=== PATIENT | female | born 1995 | race Caucasian/White ===

== ENCOUNTER 2017-04-29 04:49 | Emergency (ER) | payer OTHER, SELFPAY ==
[2017-04-29 04:51] VITALS: BP 138/93; PULSE 111; RESP 20; TEMP 36.5; O2SAT 100; BMI 23.8
--- NOTE | 2017-04-29 05:04 | ED.DCSUM_ITS ---
- ER Visit Summary Date of Service: 04/29/17 Chief Complaint: [] Possible allergic reaction versus anxiety History of Present Illness: The patient is a 21 F complaining of the sensation of her face jaw and mouth feeling like it swollen. She states she does not actually see any swelling. She has had this in the past. Benadryl is helping. She has a history of bipolar on Lamictal. She is unsure if this is secondary to anxiety. No new medications or allergic exposures Physical Examination: Vital signs reviewed General: Well-nourished well-developed Head: Normocephalic atraumatic Eyes: Pupils equal round and reactive to light extraocular movements intact ENT: TMs clear no hemotympanum no trauma Neck: Nontender full range of motion Cardiovascular: Regular rate rhythm no murmurs normal S1-S2 Respiratory: No distress clear to auscultation bilaterally chest nontender Abdomen: Soft nontender nondistended normal bowel sounds no masses Back: Nontender no CVA tenderness Extremities: Nontender active range of motion ?4 extremities no trauma Skin: Normal color no trauma Neuro alert oriented cranial nerves II through XII intact normal strength sensation reflexes Test Results: [] Emergency Department Course and Treatment: She is reassured. She appears well. I think this is likely anxiety related. I do not think it is allergic related. She will use Benadryl every 4 hours over the next 48 hours. I do not feel she needs an anxiolytic. Treatment Plan: [] Disposition: [] Impression: Anxiety reaction This note was generated with [employer] dictation software. It may contain incorrect words, spelling, and punctuation that were not noted in review of the chart prior to signing ED Disposition - Plan for ED Patient: Chief Complaint: Allergic Reaction Referrals: NOT,DEFINED [Primary Care Provider] -
--- NOTE | 2017-04-29 05:04 | ED.DEP ---
ED Disposition - Plan for ED Patient: Disposition: Home or Assisted Living Chief Complaint: Allergic Reaction Instructions: ED Allergic Reaction General Other Referrals: NOT,DEFINED [Primary Care Provider] - Doctor,Your [STAFF PHYSICIAN] -
[2017-04-29 05:18] VITALS: BP 138/93; PULSE 96; RESP 18; O2SAT 100
== END 2017-04-29 05:18 | disposition home or self-care (01) ==
PROVIDERS: Emergency Provider Emergency Medicine
DX: F41.1 Generalized anxiety disorder (principal); F31.9 Bipolar disorder, unspecified; Z79.899 Other long term (current) drug therapy
CPT/HCPCS: 99282

== ENCOUNTER 2018-08-22 14:46 | Outpatient (RCR) | payer OTHER, SELFPAY ==
--- NOTE | 2018-08-22 10:15 | BH.SGPN.GN ---
Behaviors/Verbalizations/Mental Status: []Client alert and oriented, neatly dressed and groomed. Eye contact fair. Motor activity appropriate. Speech within normal limits. Affect flat, mood anxious. Thoughts linear, logical, no signs of hallucinations or delusions. Client Response/Progress/Benefit: []Client responded well to session, engaged and attentive. Client appeared to connect with the topic of personal pitfalls and how they can prevent mental health progress. Client identified examples of pitfalls such as lack of resources and isolation from supports. Client agreed with peers that pitfalls can occur due to habit and lack of awareness. Client reported to get on the ?right path? and overcome pitfalls, one needs self-awareness. Client participated in the group activity and appeared able to manage her emotions to help the group succeed. Client agreed with peers that awareness, staying calm, and communication helped the group succeed. Client appeared to benefit from increasing self-awareness. Client?s first day in IOP. Client to continue IOP to prevent decompensation and increase mood stability.
--- NOTE | 2018-08-22 11:15 | BH.SGPN.GN ---
Behaviors/Verbalizations/Mental Status: [] Pt eye contact good, neatly dressed, motor activity appropriate, speech normal rate and tone, mood anxious, congruent affect, thoughts linear and intact, no evidence of delusions or hallucinations. Client Response/Progress/Benefit: []Pt was engaged throughout session AEB pt providing input during discussion and attentive to peers. Pt completed a worksheet where she identified own personal pitfalls. Pt identified top 5 personal pitfalls to include: not sleeping, dissociating, not being present, putting others before herself, and poor communication. Group worked together to identify strategies to overcome personal and general pitfalls which included: setting realistic expectations, positive self-talk, utilizing support system, identifying coping skills that are effective and not effective, reframing, and challenging negative thoughts. Pt identified she will work on grounding to increase being more present on a daily basis and decrease dissociation. Benefited from identifying personal and general pitfalls and strategies to overcome these pitfalls. Pt's first day in IOP, continued treatment recommended to increase healthy coping and prevent decompensation. Narrative Note: []
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
== END 2018-08-23 09:00 | disposition home or self-care (01) ==
LOC: BHIOP 14:46
PROVIDERS: Referring Provider Psychiatry & Neurology Psychiatry; Visit Provider Psychiatry & Neurology Psychiatry
DX: F31.9 Bipolar disorder, unspecified (principal)
CPT/HCPCS: H0035; 90853

== ENCOUNTER 2020-01-01 09:00 | Outpatient (RCR) | payer BC, OTHER, SELFPAY ==
--- NOTE | 2020-01-01 09:00 | BH.SGPN.GN ---
Behaviors/Verbalizations/Mental Status: []Client alert and oriented, casually dressed, hair unkempt. Eye contact good. Motor activity appropriate. Pressured speech. Affect flat, mood anxious. Thoughts linear, logical, no signs of hallucinations or delusions. Reviewed client?s symptom tracker, no risk or plan for suicide ideation as of 01/01/20. Client Response/Progress/Benefit: []Client responded well to group, engaged and attentive throughout discussion. Client shared feeling nervous from today being her first day of IOP. Client hopes to learn healthy coping skills to manage intrusive thoughts and hallucinations. Client benefited from group as she gained insight of group expectations and established relationships with other group members. Client will continue IOP to increase the use of healthy coping skills, improve mood stability, and improve daily functioning. Narrative Note: []
--- NOTE | 2020-01-01 10:10 | BH.SGPN.GN ---
Behaviors/Verbalizations/Mental Status: []Client alert and oriented, neatly dressed, hair appeared unkempt. Eye contact good. Motor activity appropriate. Speech within normal limits. Affect constricted, mood anxious and depressed. Thoughts linear, logical, no signs of hallucinations or delusions. Client Response/Progress/Benefit: []Client was an engaged participant AEB client providing input throughout discussion and appeared to listen attentively to others. Client connected with the topic of obstacles and solutions and worked with group to identify common obstacles that keep people stuck. Client shared current reality as feeling disconnected from ?everything? even though client has positive supports in her life. Client's realistic, desired reality is to feel connected to her spouse, siblings, and pets again. Group discussed common barriers that keep people stuck to include lack of energy, no coping skills, and feeling defeated. Benefited from group as client was able to identify current and desired mental health state and increase awareness of how barriers can impact progress. Client to continue IOP tx to prevent decompensation, increase self-care, and reduce negative thinking. Narrative Note: []
--- NOTE | 2020-01-01 11:15 | BH.SGPN.GN ---
Behaviors/Verbalizations/Mental Status: []Client alert and oriented, casually dressed and appropriately groomed. Eye contact fair. Motor activity appropriate. Speech within normal limits. Affect constricted, mood depressed and anxious. Thoughts linear, logical, no signs of hallucinations or delusions. Client Response/Progress/Benefit: []Client was an engaged participant AEB client providing input at times during discussion and appeared to listen attentively to others. Engaged during activity and provided ideas on how to cope with internal barriers that keep clients stuck from moving towards goals. Barriers identified by client were: feeling disconnected from self, disconnected from others, inability to break out of intrusive thoughts, and difficulty determining if she is experiencing hallucinations. Group helped identify strategies to combat barriers identified by group members. Client reported will work on improving connecting with others by making herself socialize with others and reaching out to supports. Seemed to benefit from group by identifying obstacles and solutions to desired reality. First day in IOP. Will continue IOP tx to increase healthy coping skills, improve daily functioning and prevent decompensation. Narrative Note: []
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
--- NOTE | 2020-01-01 14:45 | BH.MTP ---
Master Treatment Plan - Patient Information Program Physician:: Dr. Mcmahan Primary Therapist:: Emily Ibrahim, [facility] - Psychiatric Diagnoses Psychiatric Diagnoses:: Bipolar 1 disorder, most recent episode depression, severe with psychotic features; OCD (obsessions only); PTSD; cannot rule out schizoaffective disorder, bipolar type Diagnosis Code(s):: F31.5 - Estimated LOS Estimated LOS (in weeks):: 6 Problem/Goal #1 - Problem/Goal #1 Stated Goal:: Client will reduce depressive symptoms, feelings of hopelessness, and anhedonia due to Bipolar Disorder through Intensive Outpatient Program. Description of Barriers: Pt's distorted thoughts, low self-esteem, intrusive thoughts, avoidance behaviors, and difficulty regulating emotions could all be barriers to treatment. Functional Impact: Pt self-referred due to worsening intrusive thoughts and increased depressive symptoms with thoughts of not wanting to wake up. Pt's mental health symptoms impacted pt's ability to perform work duties which resulted in pt quitting job. Pt states intrusive thoughts that cause gulit, depression, fear and feeling of being crazy. Pt endorses depressed mood with low energy, poor appetite, decreased motivation, hopelessness and anhedonia. Mental health symptoms impacting occupational and social functioning. - Objectives Objective #1 Stated Objective: Client will learn and utilize 2-3 healthy coping strategies to manage depressive symptoms. Interventions: Therapist will utilize CBT techniques to assist client with understanding the connection between thoughts, feelings and behaviors. Education will be provided on behavioral activation. Therapist will assist client in learning internal coping strategies to manage depressive symptoms, along with helping client identify triggers. Discharge Criteria: Client will have achieved this goal when can verbalize and practiced at least 2 healthy coping strategies that successfully manage depressive symptoms. Target Date: 02/12/20 Review Date: 01/29/20 Objective #2 Stated Objective: Pt will decrease depressive symptoms AEB pt?s score on the DSM 5 cross-cutting measure and improve pt?s daily functioning. Interventions: Through groups and individual therapy, pt will be provided with education on cognitive distortions, mistaken beliefs, and identifying and combating negative self-talk. Therapist will assist pt with getting back into the activities once enjoyed as well as increasing healthy coping strategies. Discharge Criteria: Pt will have met this goal when pt?s score on the DSM 5 cross cutting measure for depression has been decreased and per pt?s report daily functioning has improved. Target Date: 02/12/20 Review Date: 01/29/20 Problem/Goal #2 - Problem/Goal #2 Stated Goal:: Stabilize anxiety level while increasing ability to function on daily basis. Description of Barriers: Pt's distorted thoughts, low self-esteem, intrusive thoughts, avoidance behaviors, and difficulty regulating emotions could all be barriers to treatment. Functional Impact: Pt self-referred due to worsening intrusive thoughts and increased depressive symptoms with thoughts of not wanting to wake up. Pt's mental health symptoms impacted pt's ability to perform work duties which resulted in pt quitting job. Pt states intrusive thoughts that cause gulit, depression, fear and feeling of being crazy. Pt endorses depressed mood with low energy, poor appetite, decreased motivation, hopelessness and anhedonia. Mental health symptoms impacting occupational and social functioning. - Objectives Objective #1 Stated Objective: Client will identify 2-3 intrusive/ruminating thoughts and learn 2-3 strategies to overcome, replace, or reduce the value of those thoughts. Interventions: Therapist will help client increase awareness of cognitive distortions, false comfort, and myths about intrusive thoughts. Therapist will encourage client to focus on stressors in her control and teach client distress tolerance techniques. Therapist will utilize distractions, mindfulness, and CBT-based strategies to help client learn how to more effectively manage and cope with her intrusive thoughts. Therapist will use a workbook to give client homework and exercises to practice. Discharge Criteria: Client will have met this goal when can report least 2 ways to cope with intrusive thoughts that exacerbate anxiety. Target Date: 02/12/20 Review Date: 01/29/20 Objective #2 Stated Objective: Pt will decrease anxious symptoms AEB pt?s score on the DSM 5 cross-cutting measure improve pt?s daily functioning. Interventions: Through groups and individual therapy, pt will be provided education about anxiety?s impact on body and common physiological reaction to anxiety. Therapist will teach pt appropriate breathing techniques and build healthy coping skills to manage daily anxieties. Discharge Criteria: Pt will have met this goal when pt?s score on the DSM 5 cross cutting measure for anxiety has been decreased and per pt?s report daily functioning has improved. Target Date: 02/12/20 Review Date: 01/29/20
--- NOTE | 2020-01-01 20:44 | BH.MDN ---
Multi-Disciplinary Note - Note 30-min Individual Time Started:: 12:20 Date: 01/01/20 Purpose of session/treatment goals addressed:: Purpose of session was to elicit pt's thoughts about first day in IOP. Also started discussion about patient's treatment goals. Eye Contact:: Fair Motor Activity:: Appropriate Appearance:: Casual Speech:: Appropriate Mood:: Anxious, Depressed Affect:: Constricted Thoughts:: Linear, Logical, No evidence of hallucinations/delusions noted Staff Interventions:: Therapist provided support and worked on building rapport by using active listening and validating emotions. Therapist elicited pt's current symptoms and stressors. Elicited pt's goals for treatment. Provided homework to read about different types of intrusive thoughts. Client Response:: Pt stated she overall enjoyed group today. Pt stated she thinks she will need to be a more passive participant during her first couple weeks of treatment until she feels like she knows healthy coping skills. Pt stated she is currently struggling with feeling disconnected with others, depressed mood, auditory and visual hallucinations at times, and intrusive thoughts. Pt reported her current coping skills are sleeping, avoidance and isolation. Pt stated one of her goals is to learn healthy coping skills to manage her symptoms and stressors. Pt reported she struggles with being able to recognize when her auditory hallucinations are not reality. Pt shared she would also like to work on learning how to manage and decrease intrusive thought patterns. Pt stated she is having recurring intrusive thought that her neice and nephew are being hurt. Pt reported last week those thoughts consumed her life. Pt stated this week she has been able to think about other things but the intrusive thought is there. Pt reported she is open to homework and setting small goals. Pt stated she is having a hard time with concentration but will do her best to complete homework of reading provided material about intrusive thoughts. Risks/Concerns:: Pt denies current suicidal ideation, plan or intention to date. Pt future focused. Progress Toward Goals/Plan:: No progress noted due to this being pt's first day in IOP. Session focused on builidng rapport and starting to discuss pt's treatment goals for IOP. Pt to continue IOP to increae healthy coping, improve daily functioning and prevent decompensation. Time Stopped:: 12:50
--- NOTE | 2020-01-03 09:05 | BH.NA ---
Physical Data - Vital Signs Pulse Rate: 83 Blood Pressure: 135/76 - Height/Weight Height: 1.63 m Weight:: 68.039 kg - stated Weight in Pounds: 150.0 lbs Current Medication Compliance - Medication Compliance Do you take your medication as prescribed?: Yes Nutritional History - Appetite Nutritional Instructions:: If client shows signs of a swallowing problem, weight change of 10 pounds or more in the last month, or is on a diabetic diet, the physician will review and request a dietitian consult, as appropriate. All unintentional weight loss will be referred to the physician for decision on need for dietitian consult. Describe your appetite:: Good Additional nutritional information:: states she has gained 20lbs in the last few months after starting a new medication. Functional Assessment - Sleep Pattern Describe any problems with sleeping: Client states she had been sleeping 12+ hours per day but she has scaled back her sleep to 9-10 hours per day. - Activities Motor Activity:: Functional Sensory/Communication Assess - Communication Problems Do you have difficulty understanding what people are saying?: No What is your primary language?: [place] Citizen Medical Problems/History - Metabolic Conditions Metabolic: Other (See comments) - nodules on thyroid that are being monitored - Pain Assessment Do you have acute or chronic pain?: No - Additional History Additional comments:: has been diagnosed as bipolar in the past Surgical History - Surgical History Have you had any surgeries? If so, list type and date:: No Substance Abuse - Substance Abuse Please describe substance abuse in the last 30 days:: Client denies recent alcohol use. Client states she stopped using tobacco in 2014. Client denies substance abuse. Client states she stopped drinking caffiene about a week ago. Mental Status Summary - Mental Status Significant Findings/Observations on Appearance and Mood:: Client is alert and oriented x 4. Client is casually groomed. Client is wearing a mask due to COVID19 pandemic. Client makes good eye contact. Client's voice is normal volume and rate. Client appears midly depressed and anxious. Client makes logical associations. Client states she has auditory and visual hallucinations at times, stating auditory hallucinations are more common and she last had some a couple of weeks ago. Denies SI. Suicide Assessment - Suicidal Ideation Are you currently or have you been suicidal in the past?: No - SI in past, denies SI at this time Suicidal Intentional Rating Scale (SIRS): Suicidal thoughts (past) Physician Notification: If Active suicidal thoughts/Will not contract for safety is checked, contact physician and document in the Physician Notification section below. Past Psychiatric History - MH Treatment Hx Past Psychiatric Medications:: Risperdal (made too lethargic), gabapentin (made her nauesous), and an antidepressant made her suicidal. Age of first mental health symptoms: Client states she was diagnosed with bipolar in 2016. Client did have a suicide attempt approximately 7 years ago. Describe (age, circumstance, etc) any past hospitalizations: None. Current providers for mental health treatment (counselor, psychiatrist, case packer, etc.): Mikey Joseph for therapy at [facility], Nadine Avelar DIRECT SUPPORT SPECIALIST for psychiatry. Fall Risk Assessment - Age Age: Less than 60 - Mental Status Mental Status: Willing & able to ask for assistance when needed - Physical Status Physical Status: No problems - Impairments Impairments: None - Elimination Elimination: Continent AND independent - Gait or Balance Gait or Balance: Walks independently - Hx of Falls History of falls in the past 6 months: No known history - Medications/Substances Psychotropics:: Antipsychotics, Mood stabilizers Medications/substances used within the past 24 hours or ordered to administer: 1-2 of the medications/substances listed above - Total Score Total Points:: 1 RN Summary of Impressions - Impressions Recommendations: Include psychiatric and medical issues, treatment planning recommendations, and discharge planning needs. Impressions: Psychiatric Issues: bipolar 1 disorder, most recent episode depression/ severe with psychotic features. OCD (obsessions only). PTSD. Cannot rule out schizoaffective disorder. - Level of Care How do the client's current symptoms and functional deficits support need for this level of care?: Client states she came to the program due to increasing intrusive thoughts and hallucinations. Client states she has auditory hallucinations, and at times visual. She states she last had auditory hallucinations a couple of weeks ago, stating they are usually knocks on the door in the middle of the night, talking outside of her house or someone calling her name. Client reports recent feelings of fear, does not like to be left alone, increased sleep, increased hallucinations, decreased concentration, decreased energy and anhedonia. Client denies SI at this time. IOP will promote gains and prevent further decompensation while providing social support and skills training.
[2020-01-03 09:29] VITALS: BP 135/76; PULSE 83
--- NOTE | 2020-01-03 11:20 | BH.SGPN.GN ---
Behaviors/Verbalizations/Mental Status: []Client alert and oriented, casually dressed though grooming appearing disheveled. Eye contact fair to good. Motor activity appropriate. Speech within normal limits, quiet. Affect congruent, mood anxious and depressed. Thoughts linear, logical, no signs of hallucinations or delusions Client Response/Progress/Benefit: [] Client responded well to session, actively listening and taking notes throughout, though provided limited input. Client actively listening as the group discussed the different categories of coping skills which included distraction, emotional release, grounding, self-love, and thought challenging. Appeared to connect with provided examples for each category and wrote down several examples shared by fellow participants. Client participated in creating a coping skills ?menu? for the five categories of coping skills. Client's coping skill menu included: reading, coloring, learning a new hobby, meditating, 5-senses, brushing her teeth, reframing, and challenging labels. Shared wanting to focus on more active application of healthy grounding skills by taking more time to practice meditation. Client progress indicated by ability to connect materials to own life. Appeared to benefit from increasing repertoire of healthy coping skills. Will continue tx to further improve mood stability, reduce depression, and prevent decompensation. Narrative Note: []
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
--- NOTE | 2020-01-03 13:44 | BH.PSY.EVA_ITS ---
Initial Treatment Plan - Patient Information Visit Information: ADMISSION DATE: EXPECTED LOS: 4-6 weeks - Problems/Symptoms Problem #1:: Depression Symptom:: Sadness, anhedonia, guilt, decreased concentration, passive SI and pa ssive thoughts Problem #2:: Anxiety Symptom:: Restlessness, fear, intrusive, ego-dystonic obsessions, flashbacks, nightmares, avoidance
--- NOTE | 2020-01-04 09:00 | BH.SGPN.GN ---
Patient identifies as non-binary and preferred pronouns are they/them. Clinical notes will reflect patient's preferred pronouns. Behaviors/Verbalizations/Mental Status: []Client alert and oriented, casual dress, hygiene tended to. Eye contact fair. Motor activity appropriate. Speech within normal limits. Affect constricted, mood depressed. Thoughts linear, logical, no signs of hallucinations or delusions. Reviewed client?s symptom tracker, pt denies current suicidal thoughts or intention to date. Client Response/Progress/Benefit: []Patient responded well to session as evidenced by they sharing thoughts and feelings and appeared to listen attentively to others. Pt reported they accomplished their goal of connecting with others. Pt stated they went out for coffee with a friend they haven't seen in awhile. Pt stated they spent several hours talking and they did feel more connected than they has in awnyle. Pt reported additional positive is their house will be closing next week. Pt stated current stressor is having to move and organize all their belongings but recognizes breaking tasks into small goals will be more manageable. Progress noted with pt accomplishing goal. Pt is to continue IOP to increase healthy coping, decrease depression and prevent decompensation. Narrative Note: []
--- NOTE | 2020-01-04 10:10 | BH.SGPN.GN ---
Behaviors/Verbalizations/Mental Status: []Client alert and oriented, casually dressed and groomed. Eye contact good. Motor activity appropriate. Speech within normal limits. Affect unable to gather due to wearing mask per COVID-19 protocol, mood anxious. Thoughts linear, logical, no signs of hallucinations or delusions. Client Response/Progress/Benefit: []Client engaged and actively listened to others as client took notes. Client connected with discussion on the difference between ?normal? anxiety and when anxiety becomes problematic. Client gained awareness of personal physical symptoms of anxiety which included: dizziness, neck pain, restlessness, insomnia, nausea, and goosebumps. Client reported their safety behavior as avoiding thoughts or behaviors by scrolling through social media to decrease their anxiety symptoms for temporary relief. Client also identified catastrophizing as their common cognitive distortions when experiencing anxiety. Client benefited from group as client gained insight into physical signs of anxiety, safety behaviors, and common cognitive distortions.s. Client will continue IOP to increase the use of healthy coping skills, challenge distorted thoughts, and improve daily functioning. Narrative Note: []
--- NOTE | 2020-01-04 15:07 | BH.MDN ---
Multi-Disciplinary Note - Note 45-min Individual Time Started:: 11:35 Date: 01/04/20 Purpose of session/treatment goals addressed:: Purpose of session was to assess pt's current symptoms and stressors. Additionly focused on increasing awareness of intrusive thoughts and education about behavioral activation. Eye Contact:: Fair Motor Activity:: Appropriate Appearance:: Casual Speech:: Appropriate Mood:: Anxious, Depressed Affect:: Constricted Thoughts:: Linear, Logical, No evidence of hallucinations/delusions noted Staff Interventions:: Therpapist used open ended questions to elicit pt's current symptoms and stressors. Reviewed homework from last session of reading about intrusive thoughts. Provided education about strategies to help with intrusive thoughts. Provided education about cognitive triangle and behavioral activation. Worked with pt to identify smal goal to work on behavioral activiation. Client Response:: Pt stated she is feeling less hopeless because learning new skills. Pt reported she is continuing to be stressed about moving in less than a week. Pt stated she is excited about the move and needs to remind self that it will be okay. Pt reported she engaged in self-care by taking a shower yesterday. Pt stated she is going to a dentist today and buying toothpaste today. Pt reported continuing to struggle with intrusive thoughts. Pt stated she did read some of the material provided last session about intrusive thoughts. Pt reported she connected with the different varieties of intrusive thoughts. After learning about skills to help her manage intrusive thoughts pt stated she didn't think she was ready to work on sitting with the uncomfortable thoughts. Pt connected with the cognitive triangle and willing to work on behavioral activiation. Pt reported her goal is to dance at least once by next week. Risks/Concerns:: denies current suicidal ideation, plan or intention. future focused. Progress Toward Goals/Plan:: Progress noted with pt engaging in self-care yesterday and reporting increased hope. Pt continues to struggle with intrusive thoughts and depressive symptoms. Pt to cotninue IOP to continue IOP to improve healthy coping, decrease anxiety and prevet decompensation. Time Stopped:: 12:10
== END 2020-01-06 23:59 ==
LOC: BHIOP 09:00
PROVIDERS: PCP Family Medicine; Referring Provider Psychiatry & Neurology Psychiatry; Visit Provider Psychiatry & Neurology Psychiatry
DX: F31.5 Bipolar disorder, current episode depressed, severe, with psychotic features (principal); Z79.899 Other long term (current) drug therapy; Z91.5 Personal history of self-harm; F12.90 Cannabis use, unspecified, uncomplicated; Z62.810 Personal history of physical and sexual abuse in childhood; Z62.811 Personal history of psychological abuse in childhood; F42.9 Obsessive-compulsive disorder, unspecified; F43.10 Post-traumatic stress disorder, unspecified
CPT/HCPCS: H0035; 90832; 90834; 90853

== ENCOUNTER 2020-01-08 09:00 | Outpatient (RCR) | payer BC, SELFPAY ==
[2020-01-07 00:42] VITALS: BP 135/76; PULSE 83
--- NOTE | 2020-01-08 09:02 | BH.SGPN.GN ---
Behaviors/Verbalizations/Mental Status: []Client alert and oriented, casual dress, hygiene tended to. Eye contact fair. Motor activity appropriate. Speech within normal limits. Affect constricted, mood anxious. Thoughts linear, logical, no signs of hallucinations or delusions. Reviewed client?s symptom tracker, pt denies current suicidal thoughts or intention to date. Client Response/Progress/Benefit: [] Patient responded well to session as evidenced by her apparent dose and attentively to others and share thoughts and feelings. Patient reported her goal was to work on listening to guided meditations. Patient stated she listen to several guided meditations before bed which she believes was helpful. Patient identified she had positive moments spending time with her younger brother who visited her this weekend. Patient reported in addition to using guided meditation she also uses distraction and is using up as action by going to a dentist today. Patient reported current stressor is that her closing date has been pushed back and she is on sure of when they will now close on the house. Patient seemed to benefit from this person thoughts and feelings. Patient to continue IOP level of care to increase healthy coping, challenge disorder thought patterns, and prevent decompensation. Narrative Note: []
--- NOTE | 2020-01-08 10:14 | BH.SGPN.GN ---
Behaviors/Verbalizations/Mental Status: []Client alert and orient. Appearance casual and grooming appeared fair, disheveled. Speech an appropriate rate and tone. Eye contact fair to good. Motor activity appropriate. Mood dysthymic and anxious, affect constricted. No evidence of delusion or hallucinations.? Client Response/Progress/Benefit: []Client responded well to session, attentive and contributing to discussion. Providing increased input than in prior sessions. Client engaged as group discussed benefits of healthy communication on mental health. Benefits included: helps us relate to others, feedback on how we?re doing, needs get met, and more able to express ourselves. Group additionally discussed potential barriers to communication including: tone, communicating with behaviors or body language, assumptions, communicating when angry or sad/emotionally overwhelmed, and past experiences. Client discussed that for her anxiety has been a significant barrier as she has struggled with feeling too nervous to say something despite having an opinion or thoughts on the matter. Attentive during psychoeducation on the four communication styles. Client self-reports identifying most with the passive communication style, noting that this has been her primary means of communicating since a young age. Discussed that she has worried about conflict with others which she believes contributes to use of passive communication. Progress noted in increased insight into personal communication styles and barriers, as well as improved engagement in group compared to prior sessions. Client to continue in IOP tx prevent decompensation, improve application of self-care skills, and reduce anxiety. Narrative Note: []
--- NOTE | 2020-01-08 11:17 | BH.SGPN.GN ---
Behaviors/Verbalizations/Mental Status: []Client alert and oriented, casually dressed, hair unkempt. Eye contact good. Motor activity appropriate. Speech within normal limits. Affect constricted, mood dysthymic. Thoughts linear, logical, no signs of hallucinations or delusions. Client Response/Progress/Benefit: []Client responded well to session, listening attentively to others and providing input throughout. Engaged in discussion continuing to review the different communication styles. Attentive during psychoeducation reviewing the assertive communication strategy D.E.A.R M.A.N. Client reports wanting to work on asserting needs more directly when communicating with others. Client stated wanting to work on this because client identified self as passive which reinforces depression. Client seemed to benefit from increasing awareness of healthy strategies to improve communication. Client showing progress AEB increased engagement in group sessions. Will continue IOP tx to prevent decompensation, improve self-care, and improve emotional regulation. Narrative Note: []
--- NOTE | 2020-01-12 09:05 | BH.SGPN.GN ---
Behaviors/Verbalizations/Mental Status: []Client alert and oriented, casual dress, hygiene tended to. Eye contact good. Motor activity appropriate. Speech within normal limits.Affect congruent, mood anxious and euthymic. Thoughts linear, logical, no signs of hallucinations or delusions. Reviewed client?s symptom tracker, pt denies current suicidal thoughts or intention to date. Client Response/Progress/Benefit: []Patient responded well to session AEB actively listening and willing to share thoughts and feelings with group. Patient stated emotion today as ?grateful?. She explained recently getting hired for a new job which she is supposed to begin next week. Discussed looking forward to having a more structured routine and believes the job will also help reduce some of her anxiety related to finances. Pt shared feeling excited but nervous as she and her are also planning to close on a house next week. She identified that although these are both positives, they are also stressors. Did well to identify potential benefits of setting aside time for self-care prior to going into a busy week, however indicated often struggling to follow-through with making time for her own self-care needs. Receptive of supportive feedback and suggestions provided by the group. Patient seem to benefit from support of group environment. Pt continues to report difficulties in managing depressive sx and making time to address own self-care needs. Recommended continued IOP treatment to further promote application of self-care skills, continue to work on depression and anxiety management, as well as prevent decompensation. Narrative Note: []
--- NOTE | 2020-01-12 09:48 | BH.MDN ---
Multi-Disciplinary Note - Note 30-min Individual Time Started:: 12:25 Date: 01/12/20 Purpose of session/treatment goals addressed:: Purpose of session is to assess p's current symptoms and stressors. Other topics included reviewing homework, education on CBT techniques, and setting a weekly goal. Eye Contact:: Fair Motor Activity:: Appropriate Appearance:: Casual Speech:: Appropriate Mood:: Anxious Affect:: Constricted Thoughts:: Linear, Logical, No evidence of hallucinations/delusions noted Staff Interventions:: Therapist elicited pt's current symptoms and stressors. Provided psychoeducation about Time Stopped:: 12:55
--- NOTE | 2020-01-12 10:18 | BH.SGPN.GN ---
Behaviors/Verbalizations/Mental Status: []Client alert and oriented, neatly dressed, unkempt hair. Eye contact good. Motor activity appropriate. Speech within normal limits. Affect constricted, mood dysthymic. Thoughts linear, logical, no signs of hallucinations or delusions. Client Response/Progress/Benefit: []Client active participant as shown by active listening and contributing to discussion. Client contributed to the discussion of self-care and the consequences of not practicing self-care. Client agreed with peers that it is important to practice self-care, but they all struggle with through. Client helped the group discuss consequences of not practicing self-care such as: poor physical health, poor work performance, and poor emotional regulation. Client gave a personal example of how lack of self-care lead to client losing a job. Client participated in the discussion of the common myths about self-care. Client participated in the discussion on debunking of these myths. Client?s group challenged the myths that self-care takes too much time and means a person is ?lazy.? Client seemed to benefit from increased awareness of the importance of self-care and challenging common myths that prevent practicing self-care. Will continue IOP tx to reduce negative thinking that reinforces depression and anxiety as well as to improve daily functioning. Narrative Note: []
--- NOTE | 2020-01-12 11:20 | BH.SGPN.GN ---
Behaviors/Verbalizations/Mental Status: []Client alert and oriented, casually dressed, hygiene fair. Eye contact fair. Motor activity appropriate. Speech within normal limits. Affect constricted, mood dysthymic. Thoughts linear, logical, no signs of hallucinations or delusions. Client Response/Progress/Benefit: []Client passive participant AEB client providing limited input during discussions however appeared to listen attentively to others. Participated in some group discussion on the various areas of self-care, benefits, and types of self-care activities for each area. Client completed worksheet identifying current self-care practices and what self-care activities wants to start using. Client reported will focus on improving spiritual self-care to have a sense of community. Client stated will improve this self-care by researching to find a place of baptism that I'm welcomed to. Progress noted as client has reported improved mood. Will continue IOP tx to further promote the use of self-care practice, continue use of healthy coping skills and prevent decompensation. Narrative Note: []
--- NOTE | 2020-01-17 09:00 | BH.SGPN.GN ---
Behaviors/Verbalizations/Mental Status: []Client alert and oriented, casual dress, hygiene fair, disheveled. Eye contact fair to good. Motor activity appropriate. Speech within normal limits. Affect congruent, mood anxious, depressed. Thoughts linear, logical, no signs of hallucinations or delusions. Reviewed client?s symptom tracker, no signs of suicidal ideation, plan, or intent as of today. Client Response/Progress/Benefit: []Client responded well to session AEB actively listening to others and willingly sharing thoughts and feelings. Client identified emotion today as ?stressed?. Explained that she and her signed on a new house on Wednesday and that she started a new job on Wednesday. Did well to identify that although these are stressors, they are positives in her life as well. Expressed a positive as taking some time this weekend to practice some grounding skills in order to begin the week with less stress. Additional positive noted as using opposite action and positive self-talk to ?do the scary thing? and begin her new job despite wanting to avoid doing so. Expressed plans to take a nap this afternoon to prevent from feeling overwhelmed and burnt-out by all the recent changes. Appeared to benefit from group structure and support. Progress noted in self-report of improved use of grounding skills for better anxiety management; however client continues to appear to struggle with poor self-care and negative thoughts reinforcing mental health sx. Recommended continued IOP tx to maintain gains, continue to work on improving anxiety and depression management, and prevent decompensation. Narrative Note: []
--- NOTE | 2020-01-17 11:05 | BH.SGPN.GN ---
Behaviors/Verbalizations/Mental Status: []Client alert and oriented, neatly dressed and hair unkempt. Eye contact good. Motor activity appropriate. Speech within normal limits. Affect constricted, mood anxious. Thoughts linear, logical, no signs of hallucinations or delusions. Client Response/Progress/Benefit: []Client engaged in session AEB listening attentively to others and providing input during discussion. Client did well to participate during the activity in which participants were challenged to eliminate various items through group consensus. Client shared her ideas rather than being accommodating to peers. Client contributed to discussion of the barriers that occurred during the activity as well as the conflict resolution strategies. Client reviewed the worksheet on ten strategies to cope with conflict and client selected wanting to work on not jumping to conclusions or making assumptions about what another person is thinking or feeling. Client has also been practicing being more assertive during group sessions. Progress noted AEB client trying new coping skills and communication approaches. Will continue IOP tx as client continues to endorse a depressed mood, ruminations, and is not functioning at her baseline. Narrative Note: []
--- NOTE | 2020-01-17 12:23 | PCM.BH.PN_ITS ---
Progress Note Progress Note: History of Present Illness/Interim History: [] Patient is a 24-year-old female who is seen in follow-up at the [facility] behavioral health IOP program. I last saw the patient 2 weeks ago and at that time we had a discussion about her current medication regimen. The patient saw her outpati ent psychiatrist recently and they told the patient that I should manage her medications while she is in the IOP program. The patient wishes to wean off of her first generation antipsychotic (perphenazine) and to start a new second- generation antipsychotic in order to decrease the risk of tardive dyskinesia and other EPS symptoms down the road. She currently is somewhat stressed due to the fact that her and her bought a house about 4 days ago and they are now planning to move. In addition she started a new job yesterday and this is a little bit stressful for her. She says her mood had improved last week and is still okay but a little stress due to the recent above stressors. She denies any suicidal or homicidal ideation. She denies passive thoughts that she would not care if she . She denies any auditory hallucinations. She denies any symptoms of rhianna. Current Psychiatric Medications: [] Perphenazine 12 mg p.o. nightly (she takes 1-1/2 of an 8 mg tablet); Lamictal 200 mg p.o. nightly (increased 1 week ago by her outpatient provider); Trileptal 150 mg p.o. nightly; hydroxyzine 25 mg up to 4 times a day as needed for anxiety. Mental Status Examination: [] Patient is a 24-year-old female who is seen wearing a mask due to the pandemic she is casually dressed and groomed with good hygiene. She has no psychomotor agitation or retardation. Eye contact is good and speech is normal rate and rhythm and fluent with no pressure. Mood is mildly depressed. Affect is constricted to full today. Thought process is goal-directed and organized. Thought content: No evidence of auditory hallucinations or delusions since 1 month ago. She does have occasional intrusive thoughts that are ego dystonic and related to her OCD. Reality testing is intact. Judgment is intact. Insight: Some present. Impulsivity: Low to moderate. Diagnoses: [] [place] I: [] Bipolar 1 disorder, most recent episode depression, severe with psychotic features (F 31.5); OCD; PTSD; cannot rule out schizoaffective disorder, bipolar type [place] II: [] Negative [place] III: [] Negative [place] IV:[]] Primary support, financial,housing and job issues Plan: [] Patient will continue the IOP program at [facility] as the structure, support, education, individual and group therapy will hopefully prevent worsening of the patient's symptoms that might require hospitalization. She felt safe during the interview and if at any time she does not feel safe she will let us know or go to the emergency room. The risks, options, possible complications and side effects of the medications were discussed with the patient and she understands and accepts these. I discussed with the patient that although the perphenazine does give her an increased risk of extraparametal side effects and tardive dyskinesia in the future it might be worthwhile waiting to change meds until she is in a little bit of a less stressful time in her life. However the patient really wants to change her medication now and feels that she will be able to tolerate it. The patient failed Risperdal in the past also. She denies any other psych antipsychotic use other than perphenazine and Risperdal in the past. Patient agrees to start Latuda and she understands it needs to be taken with food or it will not be absorbed. She should take it with dinner or with at least a 350-calorie meal. She understands that we are going to wean the perphenazine slowly over 2-week. And increased Latuda slowly over 2-week.. So the patient will start by decreasing her perphenazine to 1 8 mg tablet at bedtime for 1 week. During the same time. She will start Latuda and take 140 mg tablet in the evening with food. After 1 week or around January 24, 2020 the patient will then decrease her perphenazine to 1/2 tablet or 4 mg at bedtime for 1 week and then stop the perphenazine around January 31. Around January 23 the same day she decreases her perphenazine she will increase her Latuda to 80 mg or 240 mg tablets p.o. in the evening with food. She will stay on the 80 mg of Latuda nightly until I see her next in 1 to 2 weeks.
--- NOTE | 2020-01-18 09:00 | BH.SGPN.GN ---
Behaviors/Verbalizations/Mental Status: []Client alert and oriented, casually dressed. Eye contact good. Motor activity appropriate. Speech within normal limits. Affect constricted, mood anxious. Thoughts linear, logical, no signs of hallucinations or delusions. Reviewed client?s symptom tracker, no risk or plan for suicide ideation as of 01/18/20. Client Response/Progress/Benefit: []Client responded well to session, engaged and participated throughout discussion. Client?s goal was to make it through the week with little anxiety. Client shared they moved into a new house and started a new job this week and has been stressed. Client shared their first day at the new job was stressful and resulted in their employer sending them home early. Client shared they can practice self-care before their next day on the job by seeking reassurance and spending quality time with supports. Client benefited from group as other group members connected and related to client?s experiences. Progress noted as client used breathing and grounding skills as healthy ways to cope with anxiety and stress. Client will continue IOP to increase the use of healthy coping skills, improve mood, and increase self-awareness. Narrative Note: []
--- NOTE | 2020-01-18 10:10 | BH.SGPN.GN ---
Behaviors/Verbalizations/Mental Status: []Client alert and oriented, dishelved. Eye contact good. Motor activity appropriate. Speech within normal limits. Affect flat, mood anxious. Thoughts linear, logical, no signs of hallucinations or delusions. Client Response/Progress/Benefit: []Client receptive of session, attentive in discussion and activity. Client helped group identify barriers that impact one?s ability to communicate when emotions are high. These barriers included; panic attacks, lashing out, decreased communication, increased negative thinking, and decreased listening and focusing skills. Client shared they often use social media to distract themselves from unwanted emotions. Attentive during psychoeducation on steps to improve emotional regulation. Client shared their benefit of using healthy coping skills will help break the maintenance cycle. Client participated in the activity and did well to manage emotions throughout. Client did well to provide encouragement and be the buffer. Client benefited from group as they were able to use healthy coping skills to complete the goal of the group activity and recognize personal benefits of regulating emotions. Client will continue IOP to improve daily functioning and increase the use of healthy coping skills. Narrative Note: []
--- NOTE | 2020-01-18 14:17 | BH.MDN_ITS ---
Multi-Disciplinary Note - Note 60-min Individual Time Started:: 11:35 Date: 01/18/20 Purpose of session/treatment goals addressed:: Purpose of session was to assess pt's current symptoms and stressors. Other topics included: reviewing homework from last session, processing relationship concerns, and setting goals for the week. Eye Contact:: Fair Motor Activity:: Appropriate Appearance:: Casual Speech:: Appropriate Mood:: Euthymic, Anxious Affect:: Congruent Thoughts:: Linear, Logical, No evidence of hallucinations/delusions noted Staff Interventions:: Therapist elicited pt's current symptoms and stressors. Reviewed homework. Used CBT to help client understand personal meaning of issues being confronted. Taught healthy communication techniques to help pt when expressing concerns to . Provided support by using active listening and validation when pt expressed thoughts and feelings about coming out as non- binary. Collaborated with pt to identify two goals for the next week. Client Response:: Pt actively involved in session AEB pt expressing thoughts and feelings as well as accpeting feedback. Pt reported completed her goal of using different techniques to manage anxiety. Pt stated managed anxiety at work by counting her breathe. Pt reported this prevented a panic attack. Pt stated feeling more stable to address intrusive thoughts. Reported has not been having intrusive thought as frequently about their neice. Pt expressed concern about husbands mental health and distance from each other. Pt stated one goal is to ask if he would go on a walk with pt. Pt stated additonal goal is to work on improving grounding skills. Pt reported they will listen to a guided meditation every night before bed. Pt identified struggling with being easily distracted and having a hard time focusing. Risks/Concerns:: denies current suicidal thoughts, plan or intention. Progress Toward Goals/Plan:: Pt showing progress with tx goals AEB pt stating feeling less depressed and more hopeful in the past week. Pt repsonding well to homework assignments. Pt learning and utilizing healthy coping skills. Pt continuing to struggle with identity, needs continued support. Plan is for pt to continue IOP level of care 3 days a week to reinforce healthy coping, teach CBT restructuring skills, and prevent decompensatin. Time Stopped:: 12:45
--- NOTE | 2020-01-22 09:05 | BH.SGPN.GN ---
Behaviors/Verbalizations/Mental Status: [] Client alert and oriented, casual dress, hygiene disheveled. Eye contact fair to good. Motor activity appropriate. Speech within normal limits. Affect congruent, mood euthymic and anxious. Thoughts linear, logical, no signs of hallucinations or delusions. Reviewed client?s symptom tracker, no signs of suicidal ideation, plan, or intent as of today. Client Response/Progress/Benefit: [] Client responded well to session, actively engaged and willing to process with group. Client identified emotion today as ?hopeful?.? Explained that her weekend had been ?good and productive? which has resulted in feeling more positive this morning. Client identified mental health positives from the weekend as challenging herself to use opposite action and continue working on moving boxes into her new home. Additional win noted as reaching out to her employer about feeling uncomfortable on the [employer] and working with them to find an alternative role for her within the company. Expressed this as progress as in the past she might have struggled with wanting to give up or quit. Appeared to benefit from group structure and support, as well as identifying areas of personal progress. Identified current stressor as ongoing confusion related to her gender identity; however, noted continuing to take steps to further process this for herself and reach out to supports. Recommended continued IOP tx to improve application of skills, continue to work on independent anxiety management, and prevent decompensation. Narrative Note: []
--- NOTE | 2020-01-24 09:05 | BH.SGPN.GN ---
Behaviors/Verbalizations/Mental Status: [] Eye contact is good. Motor activity is appropriate. Appearance is casual. Speech is appropriate. Mood is euthymic. Affect is full. Thoughts are linear and logical. No evidence of psychosis. Reviewed daily check in sheet and no reports of suicidal ideations or intent. Client Response/Progress/Benefit: [] Pt was an active participant in group discussion. Emotion for today is positive. Reports recent medications changes which she feels have been beneficial. Fewer hallucinations and more stable mood. Less anxious. More productive. No sleeping the day away. More control of her intrusive thoughts. She reports that with increased stability she has more time which has been hard to fill. Progress noted per pt report. Benefited from group support, encouragement, and feedback. Will continue in IOP to prevent decompensation, stabilize mood and medications, and improve functioning. Narrative Note: []
--- NOTE | 2020-01-24 09:17 | BH.COMM_ITS ---
Communication Note - Communication with Client Communication Note: Met with client to discuss Latuda medication. Client states insurance would not authorize prescription, but pharmacy did use discount card to get her 30 tablets of 40mg dose for $15. Client is ordered to begin taking 80mg per day. Client is tapering perpherazine and states will begin 4mg taper today. Client states she could feel a difference switching to Latuda, but states medication is helping. This nurse will attempt prior authorization for medicat ion Latuda.
--- NOTE | 2020-01-24 10:20 | BH.SGPN.GN ---
Behaviors/Verbalizations/Mental Status: []Client alert and oriented, neatly dressed and groomed-showered. Eye contact good. Motor activity appropriate. Speech within normal limits. Affect congruent, mood euthymic. Thoughts linear, logical, no signs of hallucinations or delusions. Client Response/Progress/Benefit: []Client responded well to session, contributing during discussion and engaged during the activity, Group reported even though change can be scary, change can be positive. Discussed how change can lead to improved mental health and personal safety. Client shared example of how they were going to put off coming to IOP, but then client decided to make the change and start therapy. Worked with the group to identify barriers to making change, which included: fear of failure, uncomfortable emotions, and putting others first. Client participated in the activity where they identified and discussed the emotions related to change. Benefited from increased awareness and understanding of emotions, benefits, and barriers related to change. Progress noted in client?s report of improved mood and increased self-care. Will continue IOP tx as client can benefit from further reducing distortions, increasing confidence, and improving mood stability. Narrative Note: []
--- NOTE | 2020-01-25 10:10 | BH.SGPN.GN ---
Behaviors/Verbalizations/Mental Status: []Client alert and oriented, disheveled, hygiene appeared to be tended to. Eye contact good. Motor activity appropriate. Speech within normal limits. Affect flat, mood anxious. Thoughts linear, logical, no signs of hallucinations or delusions. Client Response/Progress/Benefit: []Client responded well to session, attentive and engaged throughout discussion and activity. Client reported self-doubt as a barrier to take new experiences. Client stated their impact of fearing failure is that failing keeps them from trying something new. Client seemed to connect how failures can lead to positive changes. Client appeared to benefit from gaining awareness of the impact fear of failure can have on one?s mental health and wellbeing. Will continue IOP to improve daily functioning, reduce negative thinking, and increase the use of healthy coping skills. Narrative Note: []
--- NOTE | 2020-01-25 13:38 | BH.MDN ---
Multi-Disciplinary Note - Note 30-min Individual Time Started:: 11:25 Date: 01/25/20 Time Stopped:: 12:05
--- NOTE | 2020-01-29 12:28 | PCM.BH.PN ---
Progress Note Progress Note: History of Present Illness/Interim History: [] The patient is a 24-year-old female who is seen in follow-up at the [facility] behavioral health IOP program. I last saw the patient 2 weeks ago and we began weaning her from perphenazine and changing her over to Latuda. The patient is seen via telehealth today. The patient states that she has been tolerating the weaning of the medications well. She has been taking the 80 mg dose of Latuda at bedtime with food for about 5 days now. Last night was the first time that she vomited about 30 minutes after taking Latuda. Prior to that she had tolerated the Latuda well. She is now taking 4 mg of prevent is eating and will stop this medication in 3 days. She is sleeping about 6 hours total but wakes up during the night. Her initial insomnia has resolved. Her mood is pretty good. She is much less depressed than before and feels she also has more primary support available to her. She was transferred to a new position or department at her new job and so she has not worked in a week because they have not found a position for her in the new department yet. She does not mind this because she is still in the process of moving and she is participating in IOP. She states that if they do not call her with a new job after the long weekend she will try to find another job. She denies any hallucinations whatsoever. She denies suicidal ideation, homicidal ideation, thoughts of . She feels she is benefiting from the IOP program and is enjoying it. Current Psychiatric Medications: [] Perphenazine 4 mg p.o. nightly (will finish 1 week at this dose and discontinue the medication in 3 days).; Lamictal 200 mg p.o. nightly; Trileptal 150 mg p.o. nightly; hydroxyzine 25 mg up to 4 times a day as needed for anxiety; Latuda 80 mg p.o. nightly with food (x12 days now and only 5 days at the 80 mg dose. Mental Status Examination: [] The patient is seen via telehealth and is casually dressed and groomed with good hygiene. She is cooperative during the interview and has no psychomotor agitation or retardation. She has good eye contact and her speech is normal rate and rhythm and fluent with no pressure. Mood is approaching euthymia. Affect is full and normal. Thought process is goal-directed and organized. Thought content: No evidence of auditory hallucinations or delusions. Reality testing is intact. Judgment is intact. Insight: Improving. Impulsivity: Low to moderate. Diagnoses: [] [place] I: [] Bipolar 1 disorder, most recent episode depression, severe with psychotic features (F 31.5); OCD; PTSD; cannot rule out schizoaffective disorder, bipolar type [place] II: [] Negative [place] III: [] Negative [place] IV:[]] Primary support, financial, housing and job issues Plan: [] The patient will continue the IOP program at [facility] as the structure, support, education, individual and group therapy will hopefully prevent worsening of the patient's symptoms which might require hospitalization. The patient felt safe during the interview and if it anytime she does not feel safe she will let us know or go to the emergency room. No medication changes were made today as the patient will continue the weaning of the preventive seen in the taking of 80 mg of Latuda nightly with food. The rest of her medications will stay the same except she will DC her perphenazine in 4 days. The patient is instructed that if she vomits again or it persists to tell the staff and we will have to stop her Latuda. She tolerated the Latuda for the first 4 nights so she feels optimistic that she will be able to tolerate it as she feels better on it. She will continue to follow-up with outpatient providers and I will see the patient in 1 to 2 weeks.
--- NOTE | 2020-01-31 09:02 | BH.SGPN.GN ---
Behaviors/Verbalizations/Mental Status: []Client alert and oriented, casual dress, hygiene poor. Eye contact fair. Motor activity appropriate. Speech within normal limits. Affect constricted, mood anxious. Thoughts linear, logical, no signs of hallucinations or delusions. Reviewed client?s symptom tracker, pt denies current suicidal thoughts or intention to date. Client Response/Progress/Benefit: []Pt responded well to session AEB pt openly sharing thoughts and feelings and appeared to listen attentively to others. Pt reported feeling tense and anxious because stayed at new house by their self for the first night. Pt stated was able to self-soothe by meditating. Pt reported made an appointment at [facility] to start conversation about getting on testosterone hormone therapy. Pt stated they are looking forward to getting medical guidance on becoming more androgenous. Seemed to benefit from support from peers. Pt to continue IOP to increase consistent use of skills, improve daily functioning and prevent decompensation. Narrative Note: []
--- NOTE | 2020-01-31 10:15 | BH.SGPN.GN ---
Behaviors/Verbalizations/Mental Status: []Client alert and oriented, casually dressed and fairly groomed. Eye contact fair to good. Motor activity appropriate. Speech within normal limits. Affect congruent, mood anxious and dysthymic. Thoughts linear, logical, no signs of hallucinations or delusions. Client Response/Progress/Benefit: []Client was an engaged participant AEB taking notes, providing some input, and attentively listening throughout. Connected with group topic of perspective and the impacts of one?s perspective on mental health. Client shared that ?if we expect the bad then we are more focused on looking for what?s bad?. Client worked with the group to identify how a negative perspective can impact mental health which included: self-fulfilling prophecy, maintain unhealthy mental health cycles, and lead to more negative thinking.?Client contributed as group discussed ways a positive perspective can impact mental health such as: be more willing to keep trying when faced with setbacks, be more open to new experiences and new relationships, as well as improve self-confidence. Client shared ?I?m trying to look at things like ?what if something goes right rather than what if it goes wrong?. Client appeared to benefit from increasing understanding of mental health benefits of a positive perspective and potential consequences to progress when perspective is negative. Progress noted in self-report of improved skill application and reduced anxiety. Client will continue IOP tx to prevent decompensation, improve emotional regulation skills, and improve daily functioning. Narrative Note: []
--- NOTE | 2020-01-31 11:17 | BH.SGPN.GN ---
Behaviors/Verbalizations/Mental Status: []Eye contact is good. Motor activity is appropriate. Appearance is casual- hygiene fair. Speech is Appropriate. Mood is euthymic. Affect is congruent. Thoughts are linear and logical. No evidence of psychosis. Client Response/Progress/Benefit: []Client was an active participant in group discussion. Attentive during psychoeducation. Active participant in group discussion on the impact of perspective on how we view ourselves. Client worked with the group to develop a working definition of the term strengths and the importance of recognizing one's strengths. Client was given a worksheet and was asked to chitina at least 3 strengths which included: integrity, social awareness, and empathy. Group then worked together to identify strategies to remind themselves of their strengths and client selected keeping the strengths worksheet from today visible as their strategy. Progress noted AEB client?s self-report of decreased intrusive thoughts. Benefited from increased awareness of the role of perspective and strengths in daily mental health wellness. Will continue IOP tx to promote gains and further decrease intensity of symptoms. Narrative Note: []
--- NOTE | 2020-01-31 15:46 | BH.MDN ---
Multi-Disciplinary Note - Note 45-min Individual Time Started:: 10:35 Date: 01/31/20 Time Stopped:: 11:15
--- NOTE | 2020-01-31 15:48 | BH.TPR ---
Treatment Plan Review Date of Treatment Plan Review:: 01/31/20
--- NOTE | 2020-02-02 09:00 | BH.SGPN.GN ---
Behaviors/Verbalizations/Mental Status: [] Eye contact is good. Motor activity is appropriate. Appearance is neat. Speech is Appropriate. Mood is depressed. Affect is flat. Thoughts are linear and logical. No evidence of psychosis. Reviewed daily check in sheet and no reports of suicidal ideations or intent. Client Response/Progress/Benefit: [] Pt was an active participant in group discussion. Provided appropriate feedback to peers. Pt states my mood is low today. Increased anxiety and poor sleep. Sleep issues are related to moving into a new house not used to all the creaks. Reports that she is transitioning medications and understands that their will be some discomfort as she weens from one medication. Over the holiday she disclosed to her in-laws that she is non-binary. She states that their reaction was not good or bad. States that they appears more confused than anything. Was an impulsive decision to discuss this with them stating it appeared to be a good time. Emotion is stressed. Regression noted per pt report. Benefited from group support and encouragement. Will continue in IOP to stabilize mood and medications, improve functioning, and increase healthy coping skills. Narrative Note: []
--- NOTE | 2020-02-02 10:15 | BH.SGPN.GN ---
Behaviors/Verbalizations/Mental Status: []Client alert and oriented, casually dressed and appropriately groomed. Eye contact good. Motor activity appropriate. Speech within normal limits. Affect congruent, mood dysthymic. Thoughts linear, logical, no signs of hallucinations or delusions. Client Response/Progress/Benefit: []Client appeared engaged during session AEB client providing input throughout, taking notes, and listening attentively to others. Client worked with peers on defining goals and brainstormed with the group the benefits of goal setting. Benefits included: improved motivation, increased self-confidence, sense of accomplishment, and less stress. Client helped group discuss the barriers that keep people from either setting goals or following through with goals. Client identified personal barriers as: negative thoughts, self-doubt, lack of motivation, and limited resources. Client elaborated that she often knows what goals might be helpful but struggles to follow-through with working towards them due to putting it off or doubting her own ability. Client able to provide feedback during psychoeducation on SMART goals. Appeared to benefit from learning the mental health benefits of setting goals using SMART criteria. Will continue IOP tx increase healthy coping, improve emotional regulation, and prevent decompensation. Narrative Note: []
--- NOTE | 2020-02-02 11:25 | BH.SGPN.GN ---
Behaviors/Verbalizations/Mental Status: [] Eye contact is good. Motor activity is appropriate. Appearance is casual. Speech is Appropriate. Mood is anxious. Affect is congruent. Thoughts are linear and logical. No evidence of psychosis. Client Response/Progress/Benefit: [] Pt was an active participant in group discussions and activities. Along with group members was able to identify barriers during group beach ball activity (over-thinking, environmental restrictions, self-doubt, and what-if thinking) and strategies they utilized to overcome these barriers (communicating, encouraging others). Able to identify a SMART goal for the next week which was To get a haircut by the end of the week. Discussed how a haircut would help her mental health. She was able to identify barriers and obstacles to this goals and strategies to overcome these barriers. Benefited from group by being able to utilize SMART educate to create a goal. Narrative Note: []
--- NOTE | 2020-02-05 09:00 | BH.SGPN.GN ---
Behaviors/Verbalizations/Mental Status: []Client alert and oriented, casually dressed. Eye contact fair. Motor activity appropriate. Speech within normal limits. Affect flat, mood anxious and euthymic. Thoughts linear, logical, no signs of hallucinations or delusions. Reviewed client?s symptom tracker, no risk or plan for suicide ideation as of 02/05/20. Client Response/Progress/Benefit: []Client responded well to session, engaged and participated throughout discussion. Client reports feeling ?vulnerable? after sharing they have came out to in-laws before group this morning. Client stated IOP is a ?healthy distraction? as they wait for a response back. Client used healthy communication with family as they missed Thanksgiving because of not feeling comfortable due to the pandemic. Benefited from group as client felt safe while other group members expressed feeling happy and proud for them for coming out. Client will continue IOP to improve daily functioning and decrease anxiety symptoms. Narrative Note: []
--- NOTE | 2020-02-05 10:19 | BH.SGPN.GN ---
Behaviors/Verbalizations/Mental Status: []Client alert and oriented, neatly dressed and groomed-new haircut. Eye contact good. Motor activity appropriate. Speech within normal limits. Affect congruent, mood anxious and euthymic. Thoughts linear, logical, no signs of hallucinations or delusions. Client Response/Progress/Benefit: []Client was an active participant in group discussion and activity. Client agreed with peers that there are internal and external forces in life which impact personal growth. Group worked together to come up with common negative forces in life which can hold them back from growth. These included; cognitive distortions, toxic people, not setting boundaries, and not asking for help. Group then worked together to identify common positive forces which help them grow. These included; healthy coping skills, positive support, positive self-talk, and self-care. Client reported being more assertive has been a positive force in their life. Client demonstrated progress during activity AEB client advocating for themselves to increase comfort. Benefited AEB increased insight and awareness on the impact of negative and positive forces on mental wellness. Will continue IOP tx to promote gains and further improve mood stability. Narrative Note: []
--- NOTE | 2020-02-09 13:41 | BH.MDN ---
Multi-Disciplinary Note - Note 60-min Individual Time Started:: 09:15 Date: 02/09/20 Time Stopped:: 10:10
--- NOTE | 2020-02-11 12:55 | BH.MDN ---
Multi-Disciplinary Note - Note 30-min Individual Time Started:: 12:25 Date: 01/12/20 Purpose of session/treatment goals addressed:: Purpose of session was to address goal 1 from treatment plan. Eye Contact:: Fair Motor Activity:: Appropriate Appearance:: Disheveled Speech:: Appropriate Mood:: Anxious Affect:: Constricted Thoughts:: Linear, Logical, No evidence of hallucinations/delusions noted
--- NOTE | 2020-02-11 13:43 | BH.MTP ---
Master Treatment Plan - Patient Information Program Physician:: Dr. Mcmahan Primary Therapist:: Emily Ibrahim - Estimated LOS Estimated LOS (in weeks):: 6
== END 2020-02-05 23:59 ==
LOC: BHIOP 09:00
PROVIDERS: PCP Family Medicine; Referring Provider Psychiatry & Neurology Psychiatry; Visit Provider Psychiatry & Neurology Psychiatry
DX: F31.5 Bipolar disorder, current episode depressed, severe, with psychotic features (principal); F42.9 Obsessive-compulsive disorder, unspecified; F43.10 Post-traumatic stress disorder, unspecified; Z79.899 Other long term (current) drug therapy
CPT/HCPCS: H0035; 90832; 90834; 90837; 90853

== ENCOUNTER 2020-02-07 09:00 | Outpatient (RCR) | payer BC, SELFPAY ==
[2020-02-06 00:38] VITALS: BP 135/76; PULSE 83
--- NOTE | 2020-02-07 11:11 | BH.SGPN.GN ---
Behaviors/Verbalizations/Mental Status: []Client alert and oriented, neatly dressed and groomed. Eye contact good. Motor activity appropriate. Speech within normal limits. Affect constricted, mood dysthymic. Thoughts linear, logical, no signs of hallucinations or delusions. Client Response/Progress/Benefit: []Client engaged participant as evidenced by client providing input throughout discussion and listening attentively to peers. Client participated in the discussion of how each resiliency component can help increase personal resiliency. Client identified current resiliency traits client currently possesses and how these can continue to help client in treatment. Client identified personal resilience traits to include making connections, self-awareness, and accepting that change is a part of living. Client shared coming to IOP has helped client be more accepting of client?s gender identity and empowered to come out to family. Client appeared to benefit from positive support from assistant professor of theater and group and reflecting on personal growth. Progress noted in client?s self-report of increased assertiveness. Client will continue IOP tx to stabilize mood and reduce negative thinking. Narrative Note: []
--- NOTE | 2020-02-07 13:04 | PCM.BH.PN_ITS ---
Progress Note Progress Note: History of Present Illness/Interim History: [] The patient is a 24-year-old female who is seen in follow-up at the [facility] behavioral health IOP program. I last saw the patient 2 weeks ago and at that time we continued her on her Latuda at 80 mg and she continued to wean her perphenazine. The patient states that she discontinued her perphenazine 3 days ago. She is tolerating the Latuda well except that she does notice some nausea for about an hour after taking the Latuda in the evening but it is not severe and she has not been vomiting. Her sleep is little decreased since stopping the perphenazine and she gets to sleep but wakes up about 3 hours after she goes to sleep and then is having somewhat of a hard time getting back to sleep. Mood is slightly down lately but she recently finished moving into her apartment and feels that her stress of moving may have contributed to that. She denies any suicidal ideation or any hallucinations whatsoever. Overall she is tolerating the business change manager from preventive seen to Latuda well. Current Psychiatric Medications: [] Latuda 80 mg p.o. at bedtime with food; perphenazine decreased from 12 mg total in over a month. And discontinued 3 days ago; Lamictal 200 mg p.o. nightly; Trileptal 150 mg p.o. nightly; hydroxyzine 25 mg up to 4 times a day as needed for anxiety. Mental Status Examination: [] The patient appears normal for stated age and is seen wearing a mask due to the pandemic. She has no psychomotor agitation or retardation. She has good eye contact and her speech is normal rate and rhythm and fluent with no pressure. Mood is mildly depressed. Affect is constricted. Thought process is goal-directed and organized. Thought content: No evidence of auditory hallucinations or any delusions. No evidence of suicidal or homicidal ideation. Judgment is intact. Insight: Improving. Impulsivity low to moderate. Diagnoses: [] [place] I: [] Bipolar 1 disorder, most recent episode depression, severe with psychotic features (resolving, F 31.5); OCD; PTSD; cannot rule out schizoaffective disorder, bipolar type [place] II: [] Negative [place] III: [] Negative [place] IV:[]] Primary support, financial and job issues Plan: [] Patient will continue the IOP program at [facility] as the structure, support, education, individual and group therapy will hopefully prevent worsening of the patient's symptoms. She is felt safe during the interview and if she at any time she does not feel safe she will let us know or go to the emergency room. The risk, options, possible complications and side effects of the medications were discussed with the patient and she understands and accepts these. The patient agreed to increase her Latuda by adding 40 mg p.o. in the morning with food daily. She will also continue the 80 mg at night with food. The patient was on a high dose of perphenazine so it is likely that a higher dose of Latuda will be required. I will see the patient in follow-up in in 1 to 2 weeks. She will continue to follow-up with her outpatient providers.
--- NOTE | 2020-02-09 10:15 | BH.SGPN.GN ---
Pt identifies as non-binary and preferred pronouns are them/they. This will be reflected in the note. Behaviors/Verbalizations/Mental Status: []Client alert and oriented, casually dressed and groomed. Eye contact fair. Motor activity appropriate. Speech within normal limits. Affect constricted, mood euthymic. Thoughts linear, logical, no signs of hallucinations or delusions. Client Response/Progress/Benefit: []Pt engaged participant AEB pt providing input during discussion, completing worksheet and appearing to actively listen to peers. Appeared to connect with others during discussion about the positives of anxiety. Pt stated their physical symptoms of anxiety include: dizziness, shortness of breath, tingling, electric shock feeling, numb, and stomach aches. Pt stated for them shortness of breathe and electric shock feeling in body are signs of severe anxiety. Pt seemed to benefit from increased awareness of physiological signs of anxiety as well as understanding how avoidance worsens anxiety. Pt to continue IOP to maintain gains, increase healthy coping and prevent decompensation. Narrative Note: []
--- NOTE | 2020-02-09 11:15 | BH.SGPN.GN ---
Behaviors/Verbalizations/Mental Status: []Client alert and oriented, casually dressed and groomed. Eye contact good. Motor activity appropriate. Speech within normal limits. Affect congruent, mood anxious. Thoughts linear, logical, no signs of hallucinations or delusions. Client Response/Progress/Benefit: []Client was an active participant in group discussion and provided insight on group topic. Attentive during psychoeducation on mindfulness coping skills and their impact on personal mental health wellness. Practiced deep breathing, meditation, and PMR with group. Client was able to identify self-soothing and mind-based coping skills client wants to incorporate into current coping skill practice. The skills Client chose to practice were grounding statements and reflecting on past successes to cope with anxious thoughts. Appeared to benefit from practicing in the moment coping skills. Progress noted in client?s self-report of more self-confidence. Will continue IOP tx to reduce depressive symptoms, improve mood stability, and reduce negative thinking. Narrative Note: []
--- NOTE | 2020-02-09 13:44 | BH.MDN ---
Multi-Disciplinary Note - Note 60-min Individual Time Started:: 09:15 Date: 02/09/20 Time Stopped:: 10:10
--- NOTE | 2020-02-12 09:00 | BH.SGPN.GN ---
Behaviors/Verbalizations/Mental Status: []Client alert and oriented, casually dressed. Eye contact fair. Motor activity appropriate. Speech within normal limits. Affect congruent, mood euthymic. Thoughts linear, logical, no signs of hallucinations or delusions. Reviewed client?s symptom tracker, no risk or plan for suicide ideation as of 02/12/20. Client Response/Progress/Benefit: []Client responded well to session, participated and engaged throughout discussion. Client reported feeling ?determined? after sharing they will discharge this week from the IOP program. Client stated they have decreased the amount of work as their place of employment is working with them to find a good position that is applicable to their needs. Client reported feeling ?passionate? to help the homeless and has begun a project to help meet their needs. Client stated their positive as ?feeling ready for discharge this week and being comfortable and focused within their environments.? Client noted they have increased their sleep, but have anxiety about a change in medication. Benefited from group as they offered positive feedback and insight to new group members. Client will continue IOP until discharge to improve daily functioning and continue the use of healthy coping skills. Narrative Note: []
--- NOTE | 2020-02-12 10:12 | BH.SGPN.GN ---
Behaviors/Verbalizations/Mental Status: []Client alert and oriented, casually dressed and groomed. Eye contact good. Motor activity appropriate. Speech within normal limits. Affect constricted, mood dysthymic. Thoughts linear, logical, no signs of hallucinations or delusions. Client Response/Progress/Benefit: []Client was an active participant as evidenced by providing input throughout discussion. Client connected with the discussion about how distorted thought patterns can reinforce mental health symptoms and impact self-worth. Client shared a personal example of a distorted thought pattern client has had. Client noted that they connect with emotional reasoning, overgeneralization, personalization, and mental filter. Client shared that distortions often lead to self-criticism and can cause a downward spiral. Appeared to benefit from increasing awareness of cognitive distortions and how they can impact emotions and behaviors. Will continue IOP tx to promote the use of healthy coping skills, improve mood stability, and improve daily functioning. Narrative Note: []
--- NOTE | 2020-02-12 11:15 | BH.SGPN.GN ---
Behaviors/Verbalizations/Mental Status: []Client alert and oriented, casual dress, hygiene tended to. Eye contact fair. Motor activity appropriate. Speech within normal limits. Affect constricted, mood anxious. Thoughts linear, logical, no signs of hallucinations or delusions Client Response/Progress/Benefit: []Client engaged participant AEB client providing input during discussion, completing worksheet, and appearing to listen attentively to others. Client stated she connected with many of the distortions, able to provide example distorted thoughts. Client engaged in discussion about how to reframe distorted thoughts into more realistic, rational statements. Client did not share her distorted and reframed thought. Client seemed to understand the impact cognitive distortions has on behavior. Client seemed to benefit from practicing identifying and reframing distorted thoughts. To continue IOP to continue use of healthy coping, increase self-confidence, and prevent decompensation.
--- NOTE | 2020-02-16 09:05 | BH.SGPN.GN ---
Behaviors/Verbalizations/Mental Status: [] Eye contact is good. Motor activity is appropriate. Appearance is disheveled. Speech is Appropriate. Mood is depressed. Affect is flat. Thoughts are linear and logical. No evidence of psychosis. Reviewed daily check in sheet and pt reports 2/5 for suicidal thoughts and 1/5 for intent Client Response/Progress/Benefit: [] Pt participated at times during group discussion. Emotion for today is anxious. Shared that she has not been sleeping well and feels that she may be manic. Feels less control over her emotions and thoughts. Also reports racing thoughts and feeling overly energized. Last manic episode was 6 months ago and last 1-2 days. Believes that she has been more anxious and restless in the past few weeks. Feels that her medication is not helping and is causing her to vomit. Increased motivation and purpose for patient as she is working to help the homeless in the area with a friend. Regression report per pt. Benefited from group support, encouragement, and feedback. Will continue in IOP to maintain safety, stabilize mood, and improve functioning. Narrative Note: []
--- NOTE | 2020-02-16 12:11 | BH.COMM ---
Communication Note - Communication with Client Communication Note: Pt verbalized that she feels that she is in a manic episode during 1st group. Reports decreased sleep, increased irritabilty, increased impulsivity, racing thoughts, and feeling overly energized. Last manic epsiode was 6 months ago and only lasted 2 days. Reports this episode has been lasting for 5 days. Denies any delusions or psychosis. Pt unsure if Latuda has been helpful. Call placed to psychiatrist Dr. Mcmahan and to program nurse. Dr. Mcmahan recommends stopping the Latuda and starting Zyprexa 5mg at morning and night. Program nurse called in medications to pharmacy. Pt made aware of recommendations and was agreeable. Gave patient instructions to monitor mood and if she feels that symptoms are worsening over the weekend to go to the ER or seek psych admission. Pt agreeable.
--- NOTE | 2020-02-16 15:01 | BH.MDN ---
Multi-Disciplinary Note - Note 45-min Individual Time Started:: 11:15 Date: 02/16/20 Purpose of session/treatment goals addressed:: Pt reported 2/5 for suicidal thoughts and 1/5 for intent during process group this AM. Also reported increased anxiety and manic symptoms. Session to complete risk assessment. Eye Contact:: Good Motor Activity:: Appropriate Appearance:: Casual Speech:: Appropriate Mood:: Depressed Affect:: Congruent Thoughts:: Linear, Logical, No evidence of hallucinations/delusions noted Staff Interventions:: Utilized SD techniques to elicit change behaviors. Reviewed safety plan. Performed risk assessment. Client Response:: Pt reported this AM during process group that she feels that she has been in a manic epsiode for the past 5 days. Reported poor sleep, racing thoughts, being overly energized, implusive. During the session her speech was not rapid but rather very slow. No evidence of labile mood. Thoughts are linear and intact. No delusions. Not restless. She reports being exhausted and wanting to go to sleep. Some contradictory statements as she told this therapist yesterday during a phone call that she slept well Wednesday night and then this AM states that she did not. Reports increased energy however is very tried and exhausted. Reports rhianna however states depression last evening. Possible rapid cycling. She feels that her medication (Latuda) has not been helpful and may be increasing symptoms. States that she had suicidal thoughts with methods last evening for about an hour. Denies any intent. She has a very solid safety plan and reduced access to means. Her has her medications and any knives in his car (works at night). No access to guns.Pt also reached out to her support and asked them to keep thier phones close when she started to have these thoughts. She was able to work through the thoughts and then fell asleep. States that if it ever got bad enough she would reach out to inform support, crisis, or go to the ER. Protective factors. Future-oriented. Denies any active suicidal ideations, plan, or intent. Reports that after she fell asleep last night she woke up with a more positive perspective. Verbally contracts for safety. Has safety plan for this weekend. May stay over her in-laws. In talking with pt she presented as hopeful. She is working on developing care packages for the homeless in the area with her friend. Plans on volunteering and spending time at [facility]. Frustrated with lack of progress regarding her medications. Risks/Concerns:: Denies any active sucidal ideations, plan, or intent. Had SI with thoughts of methods last eveing for about an hour. Has safety plan. Reports hypomania in the past 5 days however denies any delusions, disorganized thoughts, or risky behaviors. Medications changes were made after discussing pt reported symptoms of pt hypomania with program psychiatrist. Progress Toward Goals/Plan:: Regression noted over the past several days which pt believes are related to medication changes. This was addressed with psychiatrist via phone this AM. Pt beleives that she is manic or hypomanic. Will continue in IOP to stablize mood and maintain safety. Pt to maintain safety plan this weekend. Encouraged ER or crisis if symptoms worsen or if she has any negative side effects to medications. Time Stopped:: 12:05
--- NOTE | 2020-02-19 10:20 | BH.SGPN.GN ---
Behaviors/Verbalizations/Mental Status: []Client alert and oriented, casually dressed and groomed. Eye contact good. Motor activity appropriate. Speech within normal limits. Affect constricted, mood euthymic. Thoughts linear, logical, no signs of hallucinations or delusions. Client Response/Progress/Benefit: []Client engaged participant AEB client providing input at times during group session and listening attentively to peers. Group discussed healthy versus unhealthy coping skills and what contributes to people using unhealthy skills. The group stated unhealthy coping skills tend to be easy and habitual, temporary relief, and learned behaviors. Client reported feeling overwhelmed can lead to using unhealthy coping skills. Client stated they use distractions to avoid problems. Has insight this skill does not help in the long-term and causing problems to ?snowball.? Client participated in the group activity and connected that a healthy foundation of coping skills is composed of healthy internal and external coping skills. Client seemed to benefit from increased awareness of the importance of increasing healthy coping skills and consequences of utilizing unhealthy coping skills. Client will continue IOP tx to promote mood stability, monitor medication change, and reinforce healthy coping skills. Narrative Note: []
--- NOTE | 2020-02-19 11:20 | BH.SGPN.GN ---
Behaviors/Verbalizations/Mental Status: []Client alert and oriented, casual dress, hygiene tended to. Eye contact fair. Motor activity appropriate. Speech within normal limits. Affect constricted, mood dysthymic and anxious. Thoughts linear, logical, no signs of hallucinations or delusions. Client Response/Progress/Benefit: []Client responded well to session, actively listening and providing examples. Group discussed the different categories of coping skills which included distraction, emotional release, grounding, self-love, and thought challenging. Client participated in creating a coping skills ?menu? from the five categories of coping skills. Client's coping skill menu included: meditating, baking, walking, learning something new, dancing, throw eggs, and reframing negative thoughts. Progress noted in client's self-report of using skills outside treatment environment. Appeared to benefit from increasing repertoire of healthy coping skills. Will continue tx to promote gains, continue working on challenging distorted thoughts, and prevent decompensation. Narrative Note: []
--- NOTE | 2020-02-19 12:15 | BH.COMM ---
Communication Note - Communication with Client Communication Note: Pt reports decreased symptoms over the weekend. Feels that medication changes has been helpful.
--- NOTE | 2020-02-21 09:05 | BH.SGPN.GN ---
Behaviors/Verbalizations/Mental Status: []Client alert and oriented, casually dressed, hygiene fair. Eye contact good. Motor activity appropriate. Speech within normal limits. Affect constricted, mood euthymic. Thoughts linear, logical, no signs of hallucinations or delusions. Reviewed client's symptom tracker, no thoughts or risk of suicide as of 02/21/20. Client Response/Progress/Benefit: []Client responded well to session, providing supportive feedback to peers. Client reports feeling accomplished this morning due to multiple mental health wins. Client cleaned their house and went into the grocery store alone since last session. Client stated it has been three months since being in a grocery store a lone. Client starts back on their old job this week which is both a positive and stressor for client. Client shared I can always remind myself that if I don't like it I can leave. Client recently started a new medication and client reports some dizziness, but reports belief mood has improved. Appeared to benefit from reflecting on progress and connecting with peers. Will continue IOP tx to monitor medication changes and to reinforce healthy coping skills. Narrative Note: []
--- NOTE | 2020-02-21 10:15 | BH.SGPN.GN ---
Behaviors/Verbalizations/Mental Status: [] Eye contact is good. Motor activity is appropriate. Appearance is casual. Speech is Appropriate. Mood is depressed. Affect is flat. Thoughts are linear and logical. No evidence of psychosis. Client Response/Progress/Benefit: [] Pt was an active participant in group discussions and activity. Shared her thoughts in the quote of the day. Worked with group members to identify the benefits of setting goals which include; sense of accomplishment, builds self-esteem, increases motivation, gives purpose, keeps us on track, and provides accountability. Worked with peers to identify the barriers to setting goals or things that keep us from accomplishing goals which include; low self-esteem, often set unrealistic goals/expectations, toxic people, lack of resources, and negative thoughts patterns. Pt admits to struggling with goal setting stating that she has a hard time praising herself for small accomplishments. Attentive during psycho-education on developing SMART (Specific, Measurable, Achievable, Realistic, Timely) goals. Benefited from education on the benefits of goal-setting and increased insight into skills to set realistic and attainable goals. Narrative Note: []
--- NOTE | 2020-02-21 12:19 | PCM.BH.PN ---
Progress Note Progress Note: History of Present Illness/Interim History: [] Patient is a 24-year-old female who is seen in follow-up at the [facility] behavioral health IOP program. I last saw the patient about 2 weeks ago. At that time she was having some nausea with her Latuda. This nausea worsened and also caused vomiting and after a phone call from the director on February 15 the Latuda was discontinued. She was given a prescription for Zyprexa 5 mg and instructed to take 5 mg p.o. twice a day. The patient says she has been taking this since February 15 and her symptoms have improved. She was having some decreased sleep and what she thinks might have been rhianna last week or anxiety. At that time she was not getting anything done and was not productive but she did feel more restless and her sleep was somewhat decreased. This resolved however about 3 days ago. Currently the patient says she is sleeping about 6 hours a night which is an improvement. She denies any vomiting since February 16, 2020. Her nausea has resolved. Her mood is much improved and she feels is approaching euthymia. She denies any suicidal ideation, homicidal ideation, thoughts of , hallucinations or delusions. Her appetite is not approaching normal yet and she feels it is still decreased. Current Psychiatric Medications: [] Latuda 80 mg p.o. nightly (discontinued February 16, 2020); perphenazine (discontinued on February 05, 2020); Lamictal 200 mg p.o. nightly; Trileptal 150 mg p.o. nightly; Zyprexa 5 mg p.o. twice a day (since February 16, 2020). Mental Status Examination: [] The patient is seen wearing a mask due to the pandemic and appears normal for stated age and is casually dressed and groomed with good hygiene. She has no psychomotor agitation or retardation. She has good eye contact and her speech is normal rate and rhythm and fluent with no pressure. Mood is euthymic. Affect is full and normal. Thought process is goal-directed and organized. Thought content: No evidence of suicidal or homicidal ideation. No evidence of auditory hallucinations or any delusions. Judgment is intact. Insight: Good. Impulsivity: Low. Diagnoses: [] [place] I: [] Bipolar 1 disorder, most recent episode depressed lindo, severe with psychotic features (resolving, F 31.5); OCD; PTSD; cannot rule out schizoaffective disorder, bipolar type [place] II: [] Negative [place] III: [] Negative [place] IV:[]] Primary support, financial and job issues Plan: [] The patient will continue the IOP program at [facility] as the structure, support, education, individual and group therapy will hopefully prevent worsening of the patient's symptoms. She felt safe during the interview and if it anytime she does not feel safe she will let us know or go to the emergency room. The risks, options, possible complications and side effects of medications were discussed with the patient she understands accepts these. She understands it Zyprexa will probably cause weight gain over time but the patient states that her appetite is still not normal and she feels that the Zyprexa has really benefited her. She is encouraged to eat healthy and walk for exercise. The Zyprexa will be changed to 10 mg p.o. nightly instead of 5 mg p.o. twice a day. The patient feels taking it night will be easier and she will have to cut that pills in half. I will see the patient in follow-up in 2 weeks.
--- NOTE | 2020-02-26 09:05 | BH.SGPN.GN ---
Behaviors/Verbalizations/Mental Status: [] Eye contact is good. Motor activity is appropriate. Appearance is disheveled. Speech is Appropriate. Mood is euthymic. Affect is full. Thoughts are linear and logical. No evidence of psychosis. Reviewed daily check in sheet and no reports of suicidal ideations or intent. Client Response/Progress/Benefit: [] Pt was an active participant in group discussion. Emotion for today is happy and bored. Reports that she felt confident [place] typically causes her distress. Sleeping better. Increase mood stability. Keeping active and motivated. She talked about how being stable lead to boredom. She had mentioned this previously in the program. Group provided feedback and suggestions to deal with boredom and the emotions associated with boredom. Progress noted. Benefited from group support, encouragement, and feedback. Will continue in IOP to maintain gains, prevent decompensation, and stabilize mood. Narrative Note: []
--- NOTE | 2020-02-26 10:10 | BH.SGPN.GN ---
Pt identifies as non-binary and preferred pronouns are they/them. This note will reflect preferred pronouns. Behaviors/Verbalizations/Mental Status: []]Eye contact is good. Motor activity is appropriate. Appearance is casual. Speech is Appropriate. Mood is euthymic. Affect is constricted. Thoughts are linear and logical. No evidence of psychosis. Client Response/Progress/Benefit: []Pt remained an active participant throughout session AEB pt providing input to discussion, willing to complete worksheet and appearing to listen attentively to others. Pt stated anger can be positive by fueling them to try and make positive changes in the city. Pt reported anger is the most difficult emotion to identify because often bottles it. Shared their emotions underlying anger include: grief, guilt, impatience, trauma and disgust. Pt identified the following ways they express anger: dissociate and [place] vandalism Pt seemed to benefit from increased awareness of how unmanaged anger can impact self and others. Progress noted with pt's increased self-awareness of how bottling emotions impacts self and others. Pt to continue IOP to maintain progress, continue to use healthy coping and prevent decompensation. Narrative Note: []
--- NOTE | 2020-02-26 11:12 | BH.SGPN.GN ---
Behaviors/Verbalizations/Mental Status: []Client alert and oriented, casually dressed and groomed. Eye contact good. Motor activity appropriate. Speech within normal limits. Affect constricted. mood euthymic. Thoughts linear, logical, no signs of hallucinations or delusions. Client Response/Progress/Benefit: []Pt was engaged throughout AEB contributing to group discussion and self-reflection. Pt contributed as the group provided examples of physical warning signs for anger and identified personal warning signs. These included: feeling hot, restlessness, clenched muscles, and crying. Pt contributed as group brainstormed healthy coping skills for better managing anger which included: music, walking/exercise, identifying distortions, DDD, and meditation. Pt appeared to benefit from identifying different techniques to manage anger as well as gaining awareness of potential consequences of unmanaged anger. Pt selected meditation and DDD as coping skills they would like to try to regulate anger. Progress noted in client?s self-report of improved mood and increased engagement in the community. Will continue IOP tx and discharge at the end of the week. Narrative Note: []
--- NOTE | 2020-02-28 09:03 | BH.SGPN.GN ---
Behaviors/Verbalizations/Mental Status: []Eye contact is fair. Motor activity is appropriate. Appearance is casual. Speech is Appropriate. Mood is euthymic. Affect is constricted. Thoughts are linear and logical. No evidence of psychosis. Client Response/Progress/Benefit: []Pt responded well to session AEB client openly sharing thoughts and feelings and listened attentively to others. Patient identified mental positive as being able to take her cat to the vet and drive independently to [employer]. Patient reports [facility] as well which she reported is a significant thing because she usually has to go with someone due to severe anxiety. Patient reports she did feel anxious while she was there but was able to manage it more effectively. Patient identified additional mental positive as going back to work last week which she stated she really enjoyed. Patient reported current stressor is having to complete all her [employer] shopping today. Patient is to continue IOP level care to maintain gains and prevent decompensation. Narrative Note: []
--- NOTE | 2020-02-28 10:10 | BH.SGPN.GN ---
Behaviors/Verbalizations/Mental Status: [] Eye contact is good. Motor activity is appropriate. Appearance is casual. Speech is Appropriate. Mood is depressed. Affect is flat. Thoughts are linear and logical. Client Response/Progress/Benefit: [] Pt was an active participant in group discussion and activity. Attentive during psychoeducation on the stages of change (pre-contemplation, contemplation, preparation, action, and maintain). Worked with peers to identify barriers to make changes which included; environment, doubting oneself, worry about what others think, toxic people, fears, lack of resources, doubting one's capability, and fear of failure. Pt stated the environment can negatively impact motivation to change. Participated in discussion with peers on the benefits of change which included; improved relationships, growth, improved mood, healthier environment, and improved mental health. Benefited by increasing awareness of the emotions of change as well as benefits and obstacles to making changes. Narrative Note: []
--- NOTE | 2020-02-29 10:20 | BH.SGPN.GN ---
Behaviors/Verbalizations/Mental Status: []Client alert and oriented, neatly dressed and groomed. Eye contact good. Motor activity appropriate. Speech within normal limits. Affect constricted, mood euthymic. Thoughts linear, logical, no signs of hallucinations or delusions. Client Response/Progress/Benefit: []Client active participant as shown by active listening and contributing to discussion. Client contributed to the discussion of self-care and the consequences of not practicing self-care. Client agreed with peers that it is important to practice self-care, but they struggle with feeling selfish for practicing self-care. Client helped the group discuss benefits of self-care which included; improved mood, better mental health, and better relationships. Client participated in the discussion of the common myths about self-care. Client participated in the discussion on debunking of these myths. Client?s group challenged the myths: self-care is selfish, self-care takes too much time, and self-care is laziness. Client shared self-care is a form of self-love. Client seemed to benefit from increased awareness of the importance of self-care and challenging common myths that prevent practicing self-care. Will discharge from IOP tx today as client reports improved mood stability and no longer meets criteria of IOP level of care. Narrative Note: []
--- NOTE | 2020-02-29 11:20 | BH.SGPN.GN ---
Client identifies as non-binary. Client pronouns are they/them and note will reflect that. Behaviors/Verbalizations/Mental Status: []Client alert and oriented, casually dressed, hygiene appeared to be tended to. Eye contact fair. Motor activity appropriate. Speech within normal limits. Affect full, mood euthymic. Thoughts linear, logical, no signs of hallucinations or delusions. Client Response/Progress/Benefit: []Client active participant AEB client providing input during discussions and listened attentively to peers. Participated in some group discussion on the various areas of self-care, benefits, and types of self-care activities for each area. Client completed worksheet in which they identified current self-care practices and what self-care activities they want to start using. Client reported will focus on improving professional self-care since they just started back to work. Client reported they will work on this by taking time to nurture professional relationships which client believes will improve work satisfaction. Progress noted as client has been able to utilize healthy coping skills consistently, improved self-worth, ability to challenge distorted thoughts and reports mood stability. Client has made significant progress and no longer meets criteria for [facility] level of care. Pt will discharge from [facility] today. Narrative Note: []
--- NOTE | 2020-02-29 15:50 | BH.DS ---
Discharge Summary - Demographics Discharge Date: 02/29/20 - Treatment Discharge Handout: Complete Discharge Handout with client on aftercare options and continuity of care.
== END 2020-03-07 23:59 ==
LOC: BHIOP 09:00
PROVIDERS: PCP Family Medicine; Referring Provider Psychiatry & Neurology Psychiatry; Visit Provider Psychiatry & Neurology Psychiatry
DX: F31.5 Bipolar disorder, current episode depressed, severe, with psychotic features (principal); F42.9 Obsessive-compulsive disorder, unspecified; F43.10 Post-traumatic stress disorder, unspecified; Z79.899 Other long term (current) drug therapy
CPT/HCPCS: H0035; 90837; 90853

== ENCOUNTER 2020-03-28 14:00 | Outpatient (RCR) | payer BC, SELFPAY ==
--- NOTE | 2020-03-28 14:00 | BH.SGPN.GN ---
Behaviors/Verbalizations/Mental Status: []Client alert and oriented, neatly dressed and groomed. Eye contact good. Motor activity appropriate. Speech within normal limits. Affect constricted, mood calm. Thoughts linear, logical, no signs of hallucinations or delusions. Client Response/Progress/Benefit: []Client responded well to session, provided input, and listened attentively to peers. Reported feeling ?great? today as client has been socializing more and feeling positive. Client used boundary setting today which helped client make time for self-care. Client engaged in discussion on self-advocacy. Worked with group to identify the benefits of self-advocacy, as well as common barriers. Reviewed the personal bill of rights and shared belief they do well to know they have the right to be uniquely themselves. Worked with group to identify strategies to increase ability to advocate for oneself. Reported they want to work on advocating for themselves by reminding themselves that ?I have the right to be mad at someone I love.? Client seemed to benefit from reviewing treatment progress and skill application, as well as learning about how to increase self-advocacy. Client to continue aftercare to promote gains and reinforce healthy coping skills. Narrative Note: []
--- NOTE | 2020-03-28 14:40 | BH.MTP_ITS ---
Master Treatment Plan - Patient Information Program Physician:: Dr. Gayathri Cruz Primary Therapist:: Emily Ibrahim [facility] - Psychiatric Diagnoses Psychiatric Diagnoses:: Bipolar 1 disorder, most recent episode depression, severe with psychotic features; OCD (obsessions only); PTSD; cannot rule out schizoaffective disorder, bipolar type Diagnosis Code(s):: F 31.5 - Estimated LOS Estimated LOS (in weeks):: 12 Problem/Goal #1 - Problem/Goal #1 Stated Goal:: Client will maintain or see a reduction in symptoms AEB client score on the DSM 5 cross-cutting measure and improve client's daily functioning. - Objectives Objective #1 Stated Objective: Client will continue to consistently apply healthy coping skills to maintain progress made in IOP tx. Interventions: Through group therapy, client will review warning signs and triggers as well as healthy coping skills learned in IOP tx to successfully maintain gains while transitioning into outpatient therapy. Discharge Criteria: Client will have accomplished this goal when client's score on the DSM-5 cross-cutting measure has either maintained or reduced over a 12 week period. Target Date: 06/20/20 Review Date: 04/25/20 Status: open Objective #2 Stated Objective: Client will learn and utilize 2-3 maintenance strategies to prevent decompensation Interventions: Through group therapy, client will be provided with education on healthy maintenance behaviors, relapse prevention techniques, and healthy coping strategies. Discharge Criteria: Client will have accomplished this goal when can report using at least 2 maintenance skills to prevent decompensation. Target Date: 06/20/20 Review Date: 04/25/20 Status: open
== END 2020-04-07 23:59 ==
LOC: BHOG 14:00
PROVIDERS: PCP Family Medicine; Referring Provider Psychiatry & Neurology Psychiatry; Visit Provider Psychiatry & Neurology Psychiatry
DX: F31.5 Bipolar disorder, current episode depressed, severe, with psychotic features (principal); F42.9 Obsessive-compulsive disorder, unspecified; F43.10 Post-traumatic stress disorder, unspecified
CPT/HCPCS: 90853

== ENCOUNTER 2020-04-09 23:50 | Emergency (ER) | payer BC, SELFPAY ==
[2020-04-09 23:51] VITALS: BP 142/78; PULSE 101; RESP 15; TEMP 35.7; O2SAT 96; BMI 30.1
--- NOTE | 2020-04-10 00:02 | EKG12_ITS ---
Test Reason : SOB Blood Pressure : / mmHG Vent. Rate : 096 BPM Atrial Rate : 096 BPM P-R Int : 156 ms QRS Dur : 076 ms QT Int : 342 ms P-R-T Axes : 040 074 043 degrees QTc Int : 432 ms Normal sinus rhythm Normal ECG Confirmed by KEYLA OLIVEROS, ROMIE ([id number]), editorial clerk LUCAS PENG ([id number]) on 04/11/2020 9:50:04 AM Referred By: WILLIAM Confirmed By:ROMIE RAMIRES MD
--- NOTE | 2020-04-10 00:02 | RAD_ITS ---
STUDY: X-RAY CHEST REASON FOR EXAM: Female, 24 years old. PT LAYING DOWN TO SLEEP AND HAD SUDDEN SOB, UNABLE TO GET A DEEP BREATH X 45 MIN. REPORTS FEELING BETTER NOW. TECHNIQUE: Single AP portable view of the chest. COMPARISON: None. FINDINGS: The lungs are clear and expanded. There is no demonstrated pleural abnormality. Normal size heart. Normal mediastinum and tay. Normal visualized pulmonary arteries. Normal visualized aortic arch and descending thoracic aorta. There is dextroscoliosis. Normal visualized ribs, clavicles, and shoulders. There is no demonstrated abnormality of the visualized soft tissue structures of the upper abdomen. RAD/Chest 1 View (Portable) IMPRESSION: Dextroscoliosis of the thoracic spine. No demonstrated acute cardiopulmonary process. Electronically Signed: Maria Dolores Calderon MD at 1:02 EST Tel , Service support ,
--- NOTE | 2020-04-10 00:03 | ED.DCSUM_ITS ---
- ER Visit Summary Date of Service: 04/10/20 Chief Complaint: Difficulty taking a deep breath History of Present Illness: The patient is a [address] of anxiety and bipolar disorder. Patient states for last 45 months she has been short of breath which came on suddenly. States it feels like she has trouble taking a deep breath. Denies any swelling of her lips or tongue. Did not think it was allergic reaction but took 2 Benadryl prior to arrival and says that is made some improvement. Says her chest feels tight all over. She denies any cough, fever or chills. No history of DVT or PE. No hemoptysis. Not really pleuritic. She is feels better supine and standing but worse sitting upright. No leg pain or swelling. No recent travel or surgery. She is on NuvaRing for control. No recent immobilization. She states she does not think this is an anxiety attack. Physical Examination: Well-appearing young female. Vital signs stable afebrile. Pulse ox 96% on room air no signs of hypoxia. HEENT exam unremarkable. Neck nontender. Lungs clear to auscultation bilaterally. Equal symmetrical. Heart regular rhythm rate about 100 no murmur. Chest wall nontender. Abdomen soft nontender. Normal bowel sounds no peritoneal signs. Moving all 4 extremities. Radial pulses equal and symmetrical. Calves are nontender without edema or cords. Back nontender. Neurologically she is awake alert with no focal motor deficits. Test Results: CBC shows a white count 9 hemoglobin 9.6 no old labs available for comparison. Chemistries normal normal BUN, creatinine and gap. D-dimer slightly elevated 0.9. EKG normal sinus rhythm rate of 96 no acute signs of [place] or ischemia. Chest x-ray portable 1 view interpreted by myself shows no acute abnormality. Scoliosis of the thoracic spine. Also read by the radiologist and agrees. Due to the elevated D-dimer a CTA of the chest is obtained. There is no PE. No dissection. There was an incidental finding of a left upper quadrant abdominal what appears to be vascular mass of uncertain etiology. Radiologist specifically called me and we discussed this. Differential would include leiomyoma, adenosarcoma, lymphoma versus other etiologies. Radiologist suggested a outpatient abdominal MRI and additional abdominal imaging to help determine what this is. She is concerned due to the size and vascularity. I discussed all the test results and specifically the left upper quadrant finding with the patient. Emergency Department Course and Treatment: Young female with a sensation of trouble breathing. Clinically she looks well her exam is unremarkable. My clinical suspicion for PE is low she is on hormone therapy for control. She is a non-smoker and has no other risk factors for PE or DVT or history. Her cardiac exam is unremarkable. There is no obvious signs of infection and clinically this of sudden onset. Screening labs, chest x-ray and EKG are being obtained. Repeat exam at 3:25 AM patient is doing well. We went over all test results. Treatment Plan: Follow up with her primary care physician Dr. Izaguirre later today. For further outpatient testing specifically an abdominal MRI for further evaluation of this left upper quadrant mass. I did speak to the physician on- call for her primary care physician and they will leave a message for the PCP that the patient will be contacting them for further evaluation and work-up Disposition: discharge Impression: Subjective dyspnea secondary to anxiety Incidental finding of a left upper quadrant mass of uncertain etiology that needs further evaluation to rule out malignancy versus other etiology This note was generated with [employer] dictation software. It may contain incorrect words, spelling, and punctuation that were not noted in review of the chart prior to signing ED Disposition - Plan for ED Patient: Disposition: Home or Assisted Living Referrals: Helder Izaguirre MD [Primary Care Provider] - As soon as possible Additional Instructions: Call and follow-up with Dr. Izaguirre's office later today. Your labs were unremarkable but the CAT scan of your chest showed strong suspicion for a left upper quadrant vascular mass. At this time we do not know what that is specifically. You need further testing to determine what this is. Specifically you need an abdominal MRI to be ordered as an outpatient. His office can get that done.
[2020-04-10 00:24] VITALS: O2SAT 100
[2020-04-10 00:47] LABS: Absolute Lymphocyte Count 2.81 X10^3/uL (0.83-4.51); Basophil# 0.07 X10^3/uL; Basophil% 0.8 % (0-1); Eosinophil# 0.12 X10^3/uL; Eosinophils% 1.3 % (0-5); Hematocrit 35.8 % (37-47); Hemoglobin 11.6 g/dL (12.0-15.0); Lymphocyte # 2.81 X10^3/ul (4.0); Lymphocyte % 30.7 % (19-41); Mean Corp Hgb Conc 32.4 g/dL (32-36); Mean Corpuscular Volume 83.3 fL (81-99); Mean Platelet Vol. 9.1 fl (6.2-12.0); Monocyte# 1.13 X10^3/uL; Monocyte% 12.4 % (0-10); NRBC Flagged by Analyzer 0 % (0-5); Neutrophil # 4.98 X10^3/uL (2.7-7.7); Neutrophil % 54.5 % (47-70); Platelet Count 393 K/mm3 (150-450); RBC Distribution Width SD 39.4 fl (35.1-43.9); White Blood Count 9.1 K/mm3 (4.4-11.0)
[2020-04-10 00:53] LABS: Anion Gap 5 (5-15); BUN 12 mg/dL (7-18); BUN/Creat Ratio 13.8 RATIO (10-20); Calcium,Total 8.9 mg/dL (8.5-10.1); Chloride 111 mmol/L (98-107); Creatinine, Serum 0.87 mg/dL (0.55-1.02); EST Glomerular Filtration Rate 84 mL/min (>60); Est Glom Filt Rate - Afr Amer 102 mL/min (>60); Estimated Creatinine Clearance 85.36 ml/min; Glucose 121 mg/dL (74-106); Potassium 3.6 mmol/L (3.5-5.1); Sodium Level 140 mmol/L (136-145)
--- NOTE | 2020-04-10 01:58 | CT_ITS ---
We are attempting to reach an attending provider to discuss findings. An addendum with communication details will be sent when the communication is complete. STUDY: CTA CHEST REASON FOR EXAM: Female, 24 years old. Sob, elevated DDIMER RADIATION DOSAGE (If Supplied By Facility): CTDIvol = ( 6.39 ) mGy, DLP = ( 329.78 ) mGycm TECHNIQUE: The examination was performed with the intravenous administration of IV 100mL Isovue-370. Post-processing of the angiographic images was performed, with multiplanar reformation and 3D reconstruction. Individualized dose optimization techniques were used for this CT. COMPARISON: None. FINDINGS: Normal enhancement of the main pulmonary artery and right and left pulmonary arteries. There is limited enhancement of the bilateral peripheral pulmonary arteries. There is no visualized centrally located clot. Normal thoracic aorta and visualized great vessels. There is no demonstrated aortic dissection. There is mild cardiac enlargement. Normal mediastinum. Normal hilar regions. Normal visualized trachea and bronchi. The lungs are well expanded. Normal pulmonary parenchyma. Normal pleura. Normal chest wall structures. There is visualized dextroscoliosis of the thoracic spine centrally with levoscoliosis of the upper thoracic spine. There is a abnormal mass within the left upper quadrant which may be associated with the left adrenal gland. This is a vascular appearing mass that measures 9.3 x 5.5 x 4.6 cm. The degenerative adrenal gland is not well-visualized. The right adrenal gland appears normal. CT/CTA Chest W/WO Contrast IMPRESSION: Limited contrast bolus to evaluate for small pulmonary embolism. No visualized centrally located clot. No visualized focal infiltrate. Scoliosis. Left upper quadrant mass which is highly suspicious for a large abnormal solid vascular appearing adrenal mass measuring 9.3 x 5.5 x 4.6 cm. Given the size this is suspicious for a adrenal leiomyoma, potentially adrenal cortical carcinoma, potentially a pheochromocytoma which is thought to be less likely given given the more low attenuating appearance of the mass. There is a possibility, that This could be a large mass adjacent to a obscured adrenal gland for which a diagnosis such as lymphoma could be considered. The study of choice is a follow-up MRI with gadolinium with an adrenal mass protocol. Further Evaluation is for CT scan of the abdomen and pelvis could also be considered to exclude other similar masses.. Electronically Signed: Maria Dolores Calderon MD at 3:05 EST Tel , Service support ,
[2020-04-10 03:04] VITALS: BP 127/83; PULSE 80; RESP 16; O2SAT 100
[2020-04-10 03:12] VITALS: BP 115/84; PULSE 59; RESP 16; O2SAT 100
--- NOTE | 2020-04-10 03:29 | ED.DEP ---
ED Disposition - Plan for ED Patient: Disposition: Home or Assisted Living Referrals: Helder Izaguirre MD [Primary Care Provider] - As soon as possible Additional Instructions: Call and follow-up with Dr. Izaguirre's office later today. Your labs were unremarkable but the CAT scan of your chest showed strong suspicion for a left upper quadrant vascular mass. At this time we do not know what that is specifically. You need further testing to determine what this is. Specifically you need an abdominal MRI to be ordered as an outpatient. His office can get that done.
[2020-04-10 03:40] VITALS: RESP 18
== END 2020-04-10 03:13 | disposition home or self-care (01) ==
PROVIDERS: Emergency Provider Emergency Medicine; PCP Family Medicine
DX: R06.00 Dyspnea, unspecified (principal); F41.9 Anxiety disorder, unspecified; F31.9 Bipolar disorder, unspecified; R22.2 Localized swelling, mass and lump, trunk; R79.89 Other specified abnormal findings of blood chemistry; M41.9 Scoliosis, unspecified; Z79.3 Long term (current) use of hormonal contraceptives; Z79.899 Other long term (current) drug therapy
CPT/HCPCS: 71045; 71275; 80048; 85025; 85379; 87426; 93005; 99285; Q9967; A4216

== ENCOUNTER 2020-05-02 14:00 | Outpatient (RCR) | payer BC, SELFPAY ==
--- NOTE | 2020-04-04 02:05 | BH.SGPN.GN ---
Behaviors/Verbalizations/Mental Status: []Client alert and oriented, casually dressed and groomed. Eye contact good. Motor activity appropriate. Speech within normal limits. Affect congruent, mood anxious and euthymic. Thoughts linear and logical. No signs of hallucinations or delusions. Client Response/Progress/Benefit: []Client responded well to session, checked in using their GAPs worksheet. Client reported on making progress on goal of stabilizing mood as client stated opening up to their new psychiatrist which resulted in taking them off of testosterone. Identified recent coping skills as ?listening to body,? communicating with support team, and thought challenging. Client engaged well during discussion of social support and noted benefits of different types of social support. Client appeared to benefit from psychoeducation on the four types of social support. Client was engaged as they contributed to how one may build social support. Identified their goal for the week was to increase tangible support by asking to help around the house. Will continue aftercare IOP to continue the use of healthy coping skills, improve daily functioning, and increase self-confidence. Narrative Note: []
--- NOTE | 2020-05-02 02:00 | BH.SGPN.GN ---
Behaviors/Verbalizations/Mental Status: []Client alert and oriented, casually dressed, hygiene tended to. Eye contact good. Motor activity appropriate. Speech within normal limits. Affect congruent, mood euthymic and anxious. Thoughts linear, logical, no signs of hallucinations or delusions. Client Response/Progress/Benefit: []Client responded well to session, attentive and engaged throughout. Reported a stressor within physical health and has been practicing healthy coping skills to reduce anxiety. Identified healthy coping skills as using opposite action, going on drives out of the house, and using healthy distractions like spending time with support and increasing work hours. Participated in discussion on making healthy choices and the barriers keeping clients from making healthy choices. Identified personal barriers such as self-doubt, fear of failure, and making excuses. Engaged in discussion of strategies to increase the use of healthy decisions. Appeared to benefit from reflecting on application of coping skills and identifying barriers. Will continue IOP aftercare to continue the use of healthy coping skills, decrease anxiety, and challenge negative thoughts. Narrative Note: []
--- NOTE | 2020-05-02 15:20 | BH.TPR ---
Treatment Plan Review Date of Admission:: 03/28/20 Date of Treatment Plan Review:: 04/25/20 Admitting Diagnoses:: F31.5 Bipolar 1 disorder, most recent episode depression, severe with psychotic features; OCD (obsessions only); PTSD; cannot rule out schizoaffective disorder, bipolar type Current Diagnoses:: F31.5 Bipolar 1 disorder, most recent episode depression, severe with psychotic features; OCD (obsessions only); PTSD; cannot rule out schizoaffective disorder, bipolar type Patient's Response to Treatment:: Pt's attendance has been inconsistent due to pt being recently diagnosed with a adrenal tumor. Pt has missed the last three weeks of aftercare due to medical appointments. The two sessions pt has attended pt was engaged in group session, openly sharing thoughts and feelings. Status of Current Problems and Symptoms: Pt has not been to aftercare in three weeks. Pt reports increased stress and anxiety due to recent diagnosis of having a tumor. Pt states although this is stressful they are hopeful the upcoming surgery to remove tumor will help reduce symptoms. Pt states they found out tumor causes increased cortisol production which could be contributing to anxious and depressed symptoms. Problem #1 Problem Name:: Pt. will maintain or see a reduction in sx Status of Goals:: Obj 1 - Unable to attain DSM 5 cross-cutting measure scores. Progress limited given pt hasn't attended aftercare in 3 weeks. Obj 2 - complete with ongoing work encouraged. Client reports using thought challenge which has helped when faced with current stressors. Team Recommendations:: Recommend client continue IOP aftercare group to promote consistent use of healthy coping skills.
== END 2020-05-05 23:59 ==
LOC: BHOG 14:00
PROVIDERS: PCP Family Medicine; Referring Provider Psychiatry & Neurology Psychiatry; Visit Provider Psychiatry & Neurology Psychiatry
DX: F31.5 Bipolar disorder, current episode depressed, severe, with psychotic features (principal); F42.9 Obsessive-compulsive disorder, unspecified; F43.10 Post-traumatic stress disorder, unspecified
CPT/HCPCS: 90853

== ENCOUNTER 2020-05-09 14:00 | Outpatient (RCR) | payer BC, SELFPAY ==
--- NOTE | 2020-05-09 14:00 | BH.SGPN.GN ---
Behaviors/Verbalizations/Mental Status: []Client alert and oriented, casually dressed and groomed. Eye contact good. Motor activity appropriate. Speech within normal limits. Affect constricted, mood euthymic. Thoughts linear, logical, no signs of hallucinations or delusions. Client Response/Progress/Benefit: []Pt responded well to session AEB pt providing input during discussion and listening attentively to peers. Pt reported they have been doing well, but there is still a ?looming? stressor of uncertain medical issues. Pt stated they have been using cooking, working, and spending time with their to cope with stressors. Pt engaged in discussion about self-love. Connected with others that although self-care is challenging, it is vital for mental health wellness. Group discussed barriers they have faced that prevented self-love. Pt worked with group to identify strategies to increase self-love. Pt reported they want to work on self-love reading an affirmation that reminds client to speak to themselves as kindly as they would speak to others. Pt seemed to benefit from reviewing treatment progress and stressors as well as learning about how to increase self-love. Pt to continue aftercare program to maintain treatment progress, continue use of healthy coping, and prevent decompensation. Narrative Note: []
--- NOTE | 2020-05-23 15:47 | BH.DS_ITS ---
Discharge Summary - Demographics Date of Admission:: 03/28/20 Discharge Date: 05/23/20 Presenting Problems at Admission:: Pt presented at admission following discharge from [facility] due to signficiant depression and anixety impact social and daily functioning. At admission to aftercare pt's symptoms more manageable. Discharge Diagnoses:: F31.5 Bipolar 1 disorder, most recent episode depression, severe with psychotic features; OCD (obsessions only); PTSD; cannot rule out schizoaffective disorder, bipolar type Reason for Discharge:: Pt has not attended aftercare in last two weeks and has not returned phone calls by staff. - Treatment Progress During Treatment & Response: Progress variable due to pt's inconsistent attendance. Pt had medical complication occur while in aftercare which impeded ability to fully engage in aftercare. When pt did attend they were often an engaged participant. Issues Still to be Addressed:: Pt could benefit from continued reinforcement of healthy skills, challenging distorted thoughts, emotion regulation skills and daily self-care practice. Discharge Recommendations/Instructions:: Encouraged to follow up with already established outpatient counselor and psychiatrist. Discharge Handout: Complete Discharge Handout with client on aftercare options and continuity of care.
== END 2020-06-05 23:59 ==
LOC: BHOG 14:00
PROVIDERS: PCP Family Medicine; Referring Provider Psychiatry & Neurology Psychiatry; Visit Provider Psychiatry & Neurology Psychiatry
DX: F31.5 Bipolar disorder, current episode depressed, severe, with psychotic features (principal); F42.9 Obsessive-compulsive disorder, unspecified; F43.10 Post-traumatic stress disorder, unspecified
CPT/HCPCS: 90853

== ENCOUNTER 2021-02-03 21:10 | Emergency (ER) | payer BC, SELFPAY ==
[2021-02-03 21:10] VITALS: BP 155/95; PULSE 115; RESP 20; TEMP 36.9; O2SAT 98; BMI 29.8
[2021-02-03 22:47] LABS: Bacteria 0 SEEN /hpf (None Seen); Mucous, Urine 0 SEEN /hpf (<or=2+); Red Blood Cells-Urine 0 SEEN /hpf (0-5); Squamous Epithelial Cells - UA 0 SEEN /hpf (5-10); White Blood Cells 0 SEEN /hpf (0-5)
--- NOTE | 2021-02-03 22:47 | EDS_ITS ---
HPI History of Present Illness Chief Complaint: General Illness Narrative Narrative: Patient is a 25-year-old female with history of generalized anxiety disorder. She states that today she was at home when she started having sensation of her heart racing lightheaded and dizziness as well as numbness and tingling weakness. She states that she talked to a nurse hotline and they advised her to come to the hospital for evaluation. Patient states since her arrival to the ER she feels completely normal with resolution of symptoms. She denies taking any excessive stimulant or illicit drug use. She denies any history of cardiac dysrhythmia. She does report she feels she may have a u rinary tract infection however with the multiple symptoms occurring at home and the recommendation from the nurse she presents for evaluation [facility] Medical History Bipolar 1 disorder OCD (obsessive compulsive disorder) PTSD (post-traumatic stress disorder) Schizoaffective disorder, bipolar type Home Medications lamotrigine [Lamictal] 200 mg PO DAILY 04/29/17 [History Last Taken Unknown] oxcarbazepine 150 mg PO DAILY 01/03/20 [History Last Taken Unknown] hydroxyzine pamoate 25 mg PO 4X/DAY PRN PRN 30 Days #120 cap 01/17/20 [Rx Last Taken Unknown] olanzapine 20 mg PO QHS 02/21/20 [History Last Taken Unknown] Allergy/AdvReac Type Severity Reaction Status Date / Time albuterol [From Ventolin HFA] Allergy Unknown Verified 04/09/20 23:50 mushroom AdvReac Diarrhea Verified 02/03/21 21:13 Social History Smoking Status: Never smoker [facility] ED Constitutional Constitutional ED: Denies chills or fever(s) ENT ENT ED: Denies sore throat Cardiovascular Cardiovascular: Reports palpitations and racing heartbeat; Denies chest pain Respiratory/Chest Respiratory/Chest: Reports dyspnea; Denies cough Gastrointestinal Gastrointestinal: Denies abdominal pain, diarrhea, nausea or vomiting Genitourinary Genitourinary ED: Denies dysuria Musculoskeletal Musculoskeletal: Denies myalgias Integumentary Denies rash Neurologic Neurologic: Reports paresthesias and weakness; Denies headache(s) Psychiatric Psychiatric: Reports anxiety Hematologic/Lymphatic Hematologic/Lymphatic: Denies easy bleeding or easy bruising EXAM Physical Exam Const Vital Signs: 02/03/21 21:10 02/03/21 22:50 Temperature 98.4 F Temperature Source Temporal Pulse Rate 115 H Respiratory Rate 20 H Respiratory Effort Normal Non-Labored Blood Pressure 155/95 H Blood Pressure Mean 115 Pulse Ox 98 Oxygen Delivery Method Room Air Positive well nourished and well developed General Appearance ED: well developed HEENT Reports moist mucous membranes Eyes PERRL and EOMs intact bilaterally Neck supple Resp normal respiratory effort and clear to auscultation bilaterally Cardio regular rate and regular rhythm GI normal to inspection, nondistended, normoactive bowel sounds, non-tender, non- distended and no masses Auscultation: normoactive bowel sounds Palpation: soft Extremity normal to inspection Neuro oriented x3 and CN's II-XII intact bilaterally Sensorium / Orientation: alert Motor Exam: strength 5/5 throughout Psych mental status grossly normal Skin no rashes or lesions noted MDM MDM MDM Narrative Medical decision making narrative: Patient presented to the ER with reported spontaneous resolution of her symptoms. Her physical exam is normal and with her past medical history of ITALO I do feel that she was having a breakthrough anxiety reaction. Patient did voice concern of a possible UTI so urine sample was checked and there is no signs of infection. On reevaluation she is resting comfortably and remains in no acute distress with normal neurologic exam. Therefore patient is safe for discharge and can follow-up on an outpatient basis. Lab Data Attestation: I reviewed the patient's lab results. Labs: Laboratory Results - last 24 hr 02/03/21 21:20 Urine Color Straw Urine Clarity Clear Urine pH 7.0 Ur Specific [place] 1.005 Urine Protein Negative Urine Glucose (UA) Normal Urine Ketones Negative Urine Occult Blood 25 H Urine Nitrite Negative Urine Bilirubin Negative Urine Urobilinogen Normal Ur Leukocyte Esterase Negative Urine RBC 0 SEEN Urine WBC 0 SEEN Ur Squamous Epith Cells 0 SEEN Urine Bacteria 0 SEEN Urine Mucus 0 SEEN Urine Test Negative Discharge Plan Triage Chief Complaint: General Illness ED Provider: Julian Medrano Dx/Rx/DC Orders Clinical Impression: Anxiety reaction Instructions: ED Anxiety Reaction Prescriptions: No Action lamotrigine [Lamictal] 150 MG tablet 200 mg PO DAILY RF: 0 oxcarbazepine 150 MG tablet 150 mg PO DAILY RF: 0 olanzapine 5 MG tablet 20 mg PO QHS RF: 0 hydroxyzine pamoate 25 MG capsule 25 mg PO 4X/DAY PRN PRN (Reason: Agitation) 30 Days Qty: 120 RF: 1 Primary Care Provider: Helder Izaguirre Referrals: Helder Izaguirre MD [Primary Care Provider] - Disposition Disposition: Home, Self Care
[2021-02-03 22:52] LABS: Color, Urine Straw (Yellow); Glucose, Dipstick Normal (Normal); Ketone-Dipstick Negative (Negative); Leukocyte Esterase-Dipstick Negative /ul (Negative); Nitrite-Dipstick Negative (Negative); Occult Blood-Urine 25 /ul (Negative); Protein-Dipstick Negative (Negative); Specific Gravity, Urine 1.005 (1.002-1.030); Urine Bilirubin Dipstick Negative (Negative); Urine Clarity Clear (Clear); Urine Urobilinogen Normal (Normal)
[2021-02-03 22:59] LABS: Internal QC Validated? YES +Cl - CLEAR BKGD; Pregnancy, Urine Negative Negative
[2021-02-03 23:11] VITALS: PULSE 88; RESP 16; O2SAT 97
== END 2021-02-03 23:12 | disposition home or self-care (01) ==
LOC: ED 23:06
PROVIDERS: Emergency Provider Emergency Medicine; PCP Family Medicine
DX: F41.1 Generalized anxiety disorder (principal)
CPT/HCPCS: 81001; 81025; 99282

== ENCOUNTER 2021-03-20 13:25 | Outpatient (CLI) | payer BC, SELFPAY ==
[2021-03-20 14:44] LABS: Absolute Lymphocyte Count 2.63 X10^3/uL (0.83-4.51); Absolute Neutrophil Count 5.9 X10^3/uL (2.0-7.7); Eosinophil# 0.01 X10^3/uL; Eosinophils% 0.1 % (0-5); Hematocrit 39.8 % (37-47); Hemoglobin 12.6 g/dL (12.0-15.0); Lymphocyte # 2.63 X10^3/ul (0.83-4.51); Lymphocyte % 27.1 % (19-41); Mean Corp Hgb Conc 31.7 g/dL (32-36); Mean Corpuscular Hgb 26.3 pg (27.0-32.0); Mean Corpuscular Volume 82.9 fL (81-99); Mean Platelet Vol. 9.9 fl (6.2-12.0); Monocyte# 0.92 X10^3/uL; Monocyte% 9.5 % (0-10); NRBC Flagged by Analyzer 0 % (0-5); Neutrophil # 5.93 X10^3/uL (2.7-7.7); Neutrophil % 61.3 % (47-70); Platelet Count 416 K/mm3 (150-450); RBC Distribution Width CV 14.6 % (11.6-14.6); RBC Distribution Width SD 43.8 fl (35.1-43.9); White Blood Count 9.7 K/mm3 (4.4-11.0)
[2021-03-20 15:29] LABS: ALB/GLOB Ratio 1.1 RATIO (0.9-2.4); AST(SGOT) 13 U/L (15-37); Alanine Aminotransfer ALT/SGPT 22 U/L (13-56); Albumin, Serum 4.7 g/dL (3.2-5.0); Alkaline Phosphatase 97 U/L (45-117); Anion Gap 3 (5-15); BUN 8 mg/dL (7-18); BUN/Creat Ratio 7.8 RATIO (10-20); CRP < 2.90 mg/L (0.0-3.0); Calcium,Total 9.8 mg/dL (8.5-10.1); Chloride 104 mmol/L (98-107); Creatinine, Serum 1.03 mg/dL (0.55-1.02); EST Glomerular Filtration Rate 69 mL/min (>60); Est Glom Filt Rate - Afr Amer 83 mL/min (>60); Globulin 4.3 g/dL (2.2-4.2); Glucose 90 mg/dL (74-106); LDH 147 U/L (84-246); Potassium 3.6 mmol/L (3.5-5.1); Sodium Level 136 mmol/L (136-145)
[2021-03-23 15:07] LABS: Anti-Centromere B Ab <0.2 AI (0.0-0.9); Anti-Chromatin 0.4 AI (0.0-0.9); Anti-Jo <0.2 AI (0.0-0.9); Anti-Scleroderma-70 AB <0.2 AI (0.0-0.9); RNP Ab <0.2 AI (0.0-0.9); SJOGREN'S Anti-SS-A test < 0.2 AI (0.0-0.9); SJOGREN'S Anti-SS-B test < 0.2 AI (0.0-0.9); Smith Ab <0.2 AI (0.0-0.9)
[2021-03-23 16:03] LABS: Anti-dsDNA Ab 1 IU/mL (0-9)
[2021-03-29 13:07] LABS: Cytoplasmic Ab (C-ANCA) <1:20 titer (Neg:<1:20); Dilute Prothrombin Time (dPT) 37.3 sec (0.0-47.6); Dilute Russell Viper Venom 40.3 sec (0.0-47.0); Endomysial Antibody IgA Negative (Negative); Immunoglobulin A 208 mg/dL (87-352); Immunoglobulin E 14 IU/mL (6-495); Immunoglobulin G 1199 mg/dL (586-1602); PTT-LA 34.2 sec (0.0-51.9); Thrombin Time 16.4 sec (0.0-23.0); dPT Confirm Ratio 1.05 Ratio (0.00-1.34)
[2021-03-29 14:23] LABS: Immunoglobulin M 329 mg/dL (26-217); Interpretation Comment: (.); Perinuclear Ab (P-ANCA) <1:20 titer (Neg:<1:20); t-Transglutaminase IgA <2 U/mL (0-3)
== END 2021-03-20 23:59 | disposition short-term general hospital (02) ==
LOC: LAB 13:29
PROVIDERS: PCP Family Medicine; Referring Provider Internal Medicine Gastroenterology; Visit Provider Internal Medicine Gastroenterology
DX: R19.7 Diarrhea, unspecified (principal)
CPT/HCPCS: 36415; 80053; 82533; 82784; 82785; 83516; 83615; 85025; 86140; 86225; 86235; 86255; 86256

== ENCOUNTER 2021-04-22 13:27 | Day surgery (SDC) | payer BC, SELFPAY ==
[2021-04-22] MEDS: Lactated Ringers 1,000 ML 15 ML IV (13:30)
[2021-04-22 13:44] LABS: Internal QC Validated? YES +Cl - CLEAR BKGD
[2021-04-22 13:48] VITALS: BP 126/79; PULSE 99; RESP 18; TEMP 36.6; O2SAT 100; BMI 27.7
[2021-04-22 13:48] LABS: Pregnancy, Urine Negative Negative
--- NOTE | 2021-04-22 14:30 | COLBX_PTH ---
PATIENT: SHELLY SCALES LOC: EN U#:[id number] AGE/SX: 25/F ROOM: RE04/22/[address]: Dr. Quentin Fournier DO : 1995 BED: DIS: 04/22/2021 SPEC #: [id number] RECD: 04/22/21 15:45 STATUS: MAURI MCDANIEL #: [id number] GARY: 04/22/21 14:[address]: Quentin Fournier DEPT: SURGICAL PATHOLOGY RECD BY: Samantha Carmichael ENTERED: 04/23/21 11:53 SP TYPE: COLON BX OTHR DR: Dr. Helder Izaguirre MD Tissues: A - Duodenum, NOS B - Gastric mucous membrane C - Esophagus, NOS D - Ileum, NOS E - COLON BIOPSY Procedures: Special Stain Group II Surgery Specimen Level IV Alcian Blue/PAS (control) HEADER OPERATION: Colonoscopy, EGD ([facility] [place]) PRE-OP DIAGNOSIS: Diarrhea TISSUE SUBMITTED: A ? Duodenum biopsy, B ? Gastric body biopsy, C ? Distal esophagus biopsy, D ? Terminal ileum biopsy, E ? Random colon biopsy MICROSCOPIC DIAGNOSIS A. Duodenum, biopsy: Fragments of small intestinal mucosa, no pathologic diagnosis. B. Gastric body, biopsy: Mild gastritis. See microscopic description and comment. C. Distal esophagus, biopsy: Fragments of gastroesophageal mucosa with moderate chronic inflammation. Intestinal metaplasia (goblet cell metaplasia) is not identified. See comment. D. Terminal ileum, biopsy: Fragments of small intestine and colonic mucosa, no pathologic diagnosis. E. Colon, random biopsy: Fragments of colonic mucosa, no pathologic diagnosis. SJ:chandni 04/24/2021 COMMENT B. Immunohistochemistry for Helicobacter pylori can be performed if clinically indicated. Please notify the Laboratory if it is needed. C. Alcian blue/PAS stain with matched control is used in the evaluation of the specimen. MICROSCOPIC DESCRIPTION Slides are reviewed. B. The specimen shows fragments of gastric mucosa with chronic inflammatory cell infiltrates in the lamina propria consisting of lymphocytes and plasma cells, consistent with mild chronic gastritis. GROSS DESCRIPTION A - Received in fixative is one container labeled with the patient's name and designated duodenum biopsy. The specimen consists of multiple irregular fragments of light gould soft tissue that in aggregate measure 1 x 0.8 x 0.1 cm. The specimen is totally submitted in one cassette. B - Received in fixative is one container labeled with the patient's name and designated gastric body. The specimen consists of multiple irregular fragments of light gould soft tissue that in aggregate measure 1 x 0.2 x 0.1 cm. The specimen is totally submitted in one cassette. C - Received in fixative is one container labeled with the patient's name and designated distal esophagus biopsy. The specimen consists of multiple irregular fragments of light gould soft tissue that in aggregate measure 1 x 0.5 x 0.1 cm. The specimen is totally submitted in one cassette. D - Received in fixative is one container labeled with the patient's name and designated terminal ileum biopsy. The specimen consists of multiple irregular fragments of light gould soft tissue that in aggregate measure 1 x 0.8 x 0.1 cm. The specimen is totally submitted in one cassette. E - Received in fixative is one container labeled with the patient's name and designated random colon biopsy. The specimen consists of multiple irregular fragments of light gould soft tissue that in aggregate measure 2 x 1.5 x 0.1 cm. The specimen is totally submitted in one cassette. / AM:chandni 04/23/2021 TC:3 CPT: 11384 x5, 69930
--- NOTE | 2021-04-22 14:34 | PCM.HP.BLA ---
History and Physical Date of Admission: 04/22/21 5 F who presents to the office today for Symptoms first presented in 2019 with nausea, vomiting, diarrhea alternating with constipation, tenesmus, early satiety with emesis if continued eating and abdominal pain RLQ and LLQ. Plain starchy foods were tolerated best. Symptoms are not always the same intensity or frequency but have been getting progressively worse. The symptoms will present for weeks at a time and are intermittent for a couple months and then dissipate. Reporting 7lb weight loss this week. Zofran, gas-x, Tylenol all attempted which help mildly. Gallbladder US performed yesterday with no results recently. Reports probable hemorrhoid with occasional pain and burning. Occasional blood noted on toilet paper. Reports anemia with reports of dizziness. Last hemoglobin reported as 12.9, previously noted 11.6 when drawn at [facility] ED. Family history includes sister with ulcerative colitis. Mother had h.pylori. Aunt has to wear a backpack with external guts and has a colostomy. Last saw PCP yesterday Dr. Lerner Additional history of schizoaffective bipolar disorder onset (2018), OCD (2019), PTSD (2014), ITALO (2014), ganglioneuroma (removed ), thyroid nodules with enlarged thyroid with normal bloodwork (last checked ). medications include Lamictal, rexulti, Vistaril ROS Const Constitutional: No anorexia, fatigue, fever(s), weight change or sleep problems Eyes Eyes: No change in vision ENT ENT: No abnormal hearing, difficulty swallowing, mouth lesions, tongue swelling or throat swelling Resp Respiratory: No cough or shortness of breath Cardio Cardiology: No chest pain at rest, chest pain with exertion, shortness of breath or dyspnea on exertion Gastro GI: No difficulty swallowing Genitourinary-Female: No difficulty urinating or burning urination Musc Musculoskeletal: No joint pain, joint swelling, muscle weakness or decreased muscle mass Skin Skin: No hair loss in leg, yellowing of the eye, itchy eyes, rash, skin ulcer or skin swelling Neuro Neurology: No abnormal hearing, abnormal movements, confusion, unsteady gait/balance or memory loss Psych Psychiatric: No anxiety, No confusion and No memory loss Endo Endocrine: No fatigue or weight change Aller/Imm Allergy/Immunologic: No itchy eyes, throat swelling or tongue swelling Alcon/Lymp Hematologic/Lymphatic: No easy bleeding, easy bruising or enlarged lymph nodes Exam Const General: cooperative and comfortable Nutritional Appearance: average body habitus and well nourished [facility] Head: normal to inspection Ears: hearing grossly normal bilaterally Nose: external nose normal Face and sinus: normal facial exam Mouth: oral mucosae normal Throat: posterior oropharynx normal Eyes General: appearance normal, both eyes and all related structures Neck Neck: normal visual inspection Chest Chest palpation & inspection: normal inspection of the chest and normal palpation of entire chest wall Resp Effort & Inspection: normal respiratory effort Auscultation: Bilateral: Clear to Auscultation Cardio Palpation: normal PMI Rate: regular rate Rhythm: regular rhythm GI Inspection: normal to inspection Auscultation: normal bowel sounds Percussion: normal to percussion Palpation: no hepatosplenomegaly Skin General: no rashes or lesions noted Neuro General: patient alert Extrem General: normal to inspection Psych Affect: normal affect Quality Reporting Tobacco Screening ([facility] 138) Smoking Status: Never smoker Assessment and Plan Assessment and Plan (1) Diarrhea: Status: Acute Orders: Orders: CORTISOL SERUM Today Comprehensive Metabolic Profil Today CRP Today LDH Today CBC W/Diff, Automated Today ANCA Today Celiac Disease Profile Today Immunoglobulin E Today Immunoglobulin G Today Immunoglobulin M Today Lupus Anticoagulant Comp Today Plan - Dr. Saavedra Friend, DO: The differential diagnosis for abdominal pain and diarrhea do include eosinophilic gastroenteritis, celiac disease, inflammatory bowel disease, IBS with diarrhea. The weight loss that is concerning although she is not able to eat much food on a daily basis due to abdominal pain and cramping. We will evaluate her upper and lower GI tract. Also the diagnosis inflammation in the upper GI tract. H. pylori, peptic ulcer disease and medication side effect. She was explained alternatives,, risk, benefits including outstanding bleeding, infection, sepsis, perforation, need for emergent . ASA of 1. We Will Also Check a Serum Cortisol and Comprehensive Metabolic Profile, CRP, ESR, CBC, ANCA, Celiac Profile, Immunoglobulins E,A,M,G and a We Will Also Check ANCA I have re-examined the patient. There are no clinical changes since date of exam.
--- NOTE | 2021-04-22 15:08 | OP.CCLET_ITS ---
11/24/2021 Helder Izaguirre Re : Upper GI endoscopy procedure for Varsha Boxr Zina This procedure was performed on Thursday, April 22, 2021. My impressions and recommendations are as follows: Impressions : - LA Grade A reflux esophagitis. Rule out Monique's esophagus. Biopsied. - Erythematous mucosa in the gastric body. Recommendations : - Discharge patient to home. - Resume previous diet. - Await pathology results. - Return to my office. - Continue present medications. My findings are described in the full procedure note, which is enclosed. If I can be of further assistance, please feel free to contact me at . Sincerely, Quentin Fournier, 04/22/2021 3:07:42 PM This report has been signed electronically.
--- NOTE | 2021-04-22 15:08 | OP.EGD_ITS ---
Patient Name: Varsha Garrett Procedure Date: 04/22/2021 2:35 PM Date of : 1995 Age: 25 Procedure: Upper GI endoscopy Indications: Epigastric abdominal pain Providers: Quentin Fournier DO Medicines: See the Anesthesia note for documentation of the administered medications Patient Profile: This is a 25 year old female. Refer to note in patient chart for documentation of history and physical. Patient has symptoms of acute abdominal cramping, chronic abdominal distention and acute epigastric abdominal pain. Complications: No immediate complications. Procedure: Pre-Anesthesia Assessment: - Prior to the procedure, a History and Physical was performed, and patient medications and allergies were reviewed. The risks and benefits of the procedure and the sedation options and risks were discussed with the patient. All questions were answered and informed consent was obtained. Patient identification and proposed procedure were verified by the physician in the pre-procedure area. Mental Status Examination: alert and oriented. Airway Examination: normal oropharyngeal airway and neck mobility. Respiratory Examination: clear to auscultation. CV Examination: normal. Prophylactic Antibiotics: The patient does not require prophylactic antibiotics. Prior Anticoagulants: The patient has taken no previous anticoagulant or antiplatelet agents. ASA Grade Assessment: II - A patient with mild systemic disease. After reviewing the risks and benefits, the patient was deemed in satisfactory condition to undergo the procedure. The anesthesia plan was to use moderate sedation / analgesia (conscious sedation). Immediately prior to administration of medications, the patient was re-assessed for adequacy to receive sedatives. The heart rate, respiratory rate, oxygen saturations, blood pressure, adequacy of pulmonary ventilation, and response to care were monitored throughout the procedure. The physical status of the patient was re-assessed after the procedure. After obtaining informed consent, the endoscope was passed under direct vision. Throughout the procedure, the patient's blood pressure, pulse, and oxygen saturations were monitored continuously. The colonoscope was introduced through the mouth, and advanced to the second part of duodenum. The upper GI endoscopy was accomplished without difficulty. The patient tolerated the procedure well. Moderate Sedation: Moderate (conscious) sedation was administered by the endoscopy nurse and supervised by the endoscopist. The patient's oxygen saturation, heart rate, blood pressure and response to care were monitored. Total physician intraservice time was 15 minutes. Scope In: 2:55:40 PM Scope Out: 3:03:57 PM Total Procedure Duration Time 0 hours 8 minutes 17 seconds Findings: LA Grade A (one or more mucosal breaks less than 5 mm, not extending between tops of 2 mucosal folds) esophagitis with no bleeding was found 34 to 35 cm from the incisors. Biopsies were taken with a cold forceps for histology. Verification of patient identification for the specimen was done. Estimated blood loss was minimal. Patchy mildly erythematous mucosa without bleeding was found in the gastric body. Localized mild inflammation characterized by congestion (edema) was found in the duodenal bulb. Biopsies were taken with a cold forceps for histology. Verification of patient identification for the specimen was done. Estimated blood loss was minimal. Impression: - LA Grade A reflux esophagitis. Rule out Monique's esophagus. Biopsied. - Erythematous mucosa in the gastric body. Recommendation: - Discharge patient to home. - Resume previous diet. - Await pathology results. - Return to my office. - Continue present medications. Procedure Code(s): --- Professional --- 63271, Esophagogastroduodenoscopy, flexible, transoral; with biopsy, single or multiple 05874, 59, Moderate sedation services provided by the same physician or other qualified health clinical care manager performing the diagnostic or therapeutic service that the sedation supports, requiring the presence of an independent trained observer to assist in the monitoring of the patient's level of consciousness and physiological status; initial 15 minutes of intraservice time, patient age 5 years or older CPT copyright 2017 [employer]. All rights reserved. The codes documented in this report are preliminary and upon lead driver review may be revised to meet current compliance requirements. Quentin Fournier DO 04/22/2021 3:07:42 PM This report has been signed electronically. Number of Addenda: 1 Note Initiated On: 04/22/2021 2:35 PM Addendum Number: 1 Addendum Date: 11/24/2021 6:48:02 AM MAC was used for sedation during this procedure. Quentin Fournier DO 11/24/2021 6:48:08 AM This report has been signed electronically.
[2021-04-22 15:26] VITALS: BP 107/60; BP 126/79; PULSE 63; RESP 16; TEMP 36.3; O2SAT 100
[2021-04-22 15:30] VITALS: BP 109/60; BP 126/79; PULSE 60; RESP 16; O2SAT 99
--- NOTE | 2021-04-22 15:32 | OP.CCLET_ITS ---
11/24/2021 Helder Izaguirre Re : Colonoscopy procedure for Varsha Izaguirre This procedure was performed on Thursday, April 22, 2021. My impressions and recommendations are as follows: Impressions : - Congested mucosa in the sigmoid colon. Biopsied. - The examined portion of the ileum was normal. Biopsied. Recommendations : - Discharge patient to home. - Resume previous diet. - Continue present medications. - Await pathology results. - Await pathology results. - Return to my office. - Repeat colonoscopy is recommended for surveillance. The colonoscopy date will be determined after pathology results from today's exam become available for review. My findings are described in the full procedure note, which is enclosed. If I can be of further assistance, please feel free to contact me at . Sincerely, Quentin Fournier, 04/22/2021 3:31:54 PM This report has been signed electronically.
--- NOTE | 2021-04-22 15:32 | OP.COLON_ITS ---
Patient Name: Varsha Garrett Procedure Date: 04/22/2021 3:04 PM Date of : 1995 Age: 25 Procedure: Colonoscopy Indications: Clinically significant diarrhea of unexplained origin Providers: Quentin Fournier DO Medicines: See the Anesthesia note for documentation of the administered medications Patient Profile: This is a 25 year old female. Refer to note in patient chart for documentation of history and physical. Patient has symptoms of acute abdominal cramping, chronic abdominal distention and acute epigastric abdominal pain. Last Colonoscopy: none. The patient's first colonoscopy is today. Complications: No immediate complications. Procedure: Pre-Anesthesia Assessment: - Prior to the procedure, a History and Physical was performed, and patient medications and allergies were reviewed. The risks and benefits of the procedure and the sedation options and risks were discussed with the patient. All questions were answered and informed consent was obtained. Patient identification and proposed procedure were verified by the physician in the pre-procedure area. Mental Status Examination: alert and oriented. Airway Examination: normal oropharyngeal airway and neck mobility. Respiratory Examination: clear to auscultation. CV Examination: normal. Prophylactic Antibiotics: The patient does not require prophylactic antibiotics. Prior Anticoagulants: The patient has taken no previous anticoagulant or antiplatelet agents. ASA Grade Assessment: II - A patient with mild systemic disease. After reviewing the risks and benefits, the patient was deemed in satisfactory condition to undergo the procedure. The anesthesia plan was to use moderate sedation / analgesia (conscious sedation). Immediately prior to administration of medications, the patient was re-assessed for adequacy to receive sedatives. The heart rate, respiratory rate, oxygen saturations, blood pressure, adequacy of pulmonary ventilation, and response to care were monitored throughout the procedure. The physical status of the patient was re-assessed after the procedure. After I obtained informed consent, the scope was passed under direct vision. Throughout the procedure, the patient's blood pressure, pulse, and oxygen saturations were monitored continuously. The colonoscope was introduced through the anus and advanced to the terminal ileum. The colonoscopy was performed without difficulty. The patient tolerated the procedure well. The quality of the bowel preparation was good. Moderate Sedation: Moderate (conscious) sedation was administered by the endoscopy nurse and supervised by the endoscopist. The following parameters were monitored: oxygen saturation, heart rate, blood pressure, and response to care. Total physician intraservice time was 15 minutes. Scope In: 3:10:53 PM Scope Withdrawal Time 0 hours 10 minutes 2 seconds Scope Out: 3:23:52 PM Total Procedure Duration Time 0 hours 12 minutes 59 seconds Findings: The perianal and digital rectal examinations were normal. An area of mildly congested mucosa was found in the rectum, in the sigmoid colon, at the splenic flexure, at the hepatic flexure and in the cecum. This was biopsied with a cold forceps for histology. Verification of patient identification for the specimen was done. Biopsies were taken with a cold forceps for histology. Verification of patient identification for the specimen was done. Estimated blood loss was minimal. No biopsies or other specimens were collected for this exam. The terminal ileum appeared normal. Biopsies were taken with a cold forceps for histology. Biopsies were taken with a cold forceps for histology. Verification of patient identification for the specimen was done. Estimated blood loss was minimal. Impression: - Congested mucosa in the sigmoid colon. Biopsied. - The examined portion of the ileum was normal. Biopsied. Recommendation: - Discharge patient to home. - Resume previous diet. - Continue present medications. - Await pathology results. - Await pathology results. - Return to my office. - Repeat colonoscopy is recommended for surveillance. The colonoscopy date will be determined after pathology results from today's exam become available for review. Procedure Code(s): --- Professional --- 60785, Colonoscopy, flexible; with biopsy, single or multiple 98319, 59, Moderate sedation services provided by the same physician or other qualified health hearing care practitioner performing the diagnostic or therapeutic service that the sedation supports, requiring the presence of an independent trained observer to assist in the monitoring of the patient's level of consciousness and physiological status; initial 15 minutes of intraservice time, patient age 5 years or older CPT copyright 2017 [employer]. All rights reserved. The codes documented in this report are preliminary and upon clinical coder review may be revised to meet current compliance requirements. Quentin Fournier DO 04/22/2021 3:31:54 PM This report has been signed electronically. Number of Addenda: 1 Note Initiated On: 04/22/2021 3:04 PM Addendum Number: 1 Addendum Date: 11/24/2021 6:48:16 AM MAC was used for sedation during this procedure. Quentin Fournier DO 11/24/2021 6:48:23 AM This report has been signed electronically.
[2021-04-22 15:35] VITALS: BP 126/79; BP 127/74; PULSE 80; RESP 16; O2SAT 100
[2021-04-22 15:40] VITALS: BP 119/74; BP 126/79; PULSE 78; RESP 16; O2SAT 100
[2021-04-22 15:45] VITALS: BP 116/85; BP 126/79; PULSE 72; RESP 16; TEMP 36.7; O2SAT 100
== END 2021-04-22 23:59 | disposition home or self-care (01) ==
LOC: EN 13:30 → AC 13:30
PROVIDERS: Anesthesiology; PCP Family Medicine; Referring Provider Family Medicine; Visit Provider Internal Medicine Gastroenterology
PROC: 0DJD8ZZ Inspection of Lower Intestinal Tract, Via Natural or Artificial Opening Endoscopic (ICD-10-PCS; CPT 45378; principal; 2021-04-22 14:25)
DX: K29.70 Gastritis, unspecified, without bleeding (principal); F25.0 Schizoaffective disorder, bipolar type; K63.89 Other specified diseases of intestine; K21.00 Gastro-esophageal reflux disease with esophagitis, without bleeding; F42.9 Obsessive-compulsive disorder, unspecified; F43.10 Post-traumatic stress disorder, unspecified; E07.9 Disorder of thyroid, unspecified; Z79.899 Other long term (current) drug therapy
CPT/HCPCS: 45380; 43239; 81025; 87493; 87506; 88305; 88313; J7120; J2405

== ENCOUNTER 2021-05-06 11:53 | Outpatient (CLI) | payer BC, SELFPAY ==
[2021-05-08 18:54] LABS: Immunoglobulin M 286 mg/dL (26-217)
== END 2021-05-06 23:59 | disposition home or self-care (01) ==
LOC: LAB 11:53
PROVIDERS: PCP Family Medicine; Referring Provider Internal Medicine Gastroenterology; Visit Provider Internal Medicine Gastroenterology
DX: R19.7 Diarrhea, unspecified (principal)
CPT/HCPCS: 36415; 82784

== ENCOUNTER 2021-05-20 14:10 | Outpatient (CLI) | payer BC, SELFPAY ==
--- NOTE | 2021-05-20 14:13 | CT_ITS ---
HISTORY: abdominal pain EXAMINATION: CT Abdomen And Pelvis W/ Contrast Injection TECHNIQUE: Helically acquired images were obtained of the abdomen and pelvis following IV contrast. A radiation dose optimization technique was used for this scan. IV Contrast dosage and agent: 100mL Isovue-300 Oral contrast: None. COMPARISON: None FINDINGS: LOWER CHEST: Lung bases are clear. No cardiomegaly or pericardial effusion. LIVER: Homogeneous. No focal mass. GALLBLADDER AND BILIARY TREE: No calcified gallstones. No gallbladder distension or wall edema. No intra- or extrahepatic biliary ductal dilation. PANCREAS: No focal cystic or solid mass. SPLEEN: Normal size without focal cystic or solid mass. ADRENAL GLANDS: No nodules. KIDNEYS AND URETERS: Normal renal size and position. No hydronephrosis. PERITONEUM: No ascites or free air. BOWEL: Normal appendix. No stomach or bowel distension. No focal inflammatory bowel wall changes. LYMPH NODES: No enlarged mesenteric or retroperitoneal lymph nodes. VESSELS: Aorta is non-dilated. URINARY BLADDER: Unremarkable. REPRODUCTIVE ORGANS: No pelvic masses. ABDOMINAL WALL: No discrete abdominal or pelvic wall hernia. BONES: Unremarkable. CT/Abdomen/Pelvis WITH Contrast IMPRESSION: No acute findings in the abdomen or pelvis. Individualized dose optimization techniques were used for this CT. at 0058 Reported and signed by: Jeffrey Rogers MD Electronically Signed: Jeffrey Rogers MD at 0:56 EDT ,
== END 2021-05-20 23:59 | disposition home or self-care (01) ==
LOC: CT 14:12
PROVIDERS: PCP Family Medicine; Referring Provider Internal Medicine Gastroenterology; Visit Provider Internal Medicine Gastroenterology
DX: R19.7 Diarrhea, unspecified (principal)
CPT/HCPCS: 74177; Q9967

== ENCOUNTER 2021-05-31 08:24 | Outpatient (CLI) | payer BC, SELFPAY ==
--- NOTE | 2021-05-31 08:27 | RAD_ITS ---
STUDY: X-RAY - ABDOMEN/PELVIS REASON FOR EXAM: Female, 25 years old. sitzmarker day 3 -- constipation TECHNIQUE: Two AP supine views of the abdomen and pelvis. COMPARISON: None. FINDINGS: Normal visualized lung bases. There is an abundance of fecal material throughout the colon. There is no demonstrated free abdominal air. 1 Sitzmark noted in the ascending colon with 2 in the descending colon and 2 in the sigmoid colon The visualized liver, spleen and kidneys are grossly normal in size and morphology. Normal soft tissue structures. Normal visualized osseous structures. RAD/Abdomen Single View IMPRESSION: Sitzmarks as described Retained stool throughout the colon No free air or acute abnormality Electronically Signed: Foreign Castillo MD at 11:38 EDT ,
== END 2021-05-31 23:59 | disposition home or self-care (01) ==
LOC: RAD 08:26
PROVIDERS: PCP Family Medicine; Referring Provider Internal Medicine Gastroenterology; Visit Provider Internal Medicine Gastroenterology
DX: K59.00 Constipation, unspecified (principal)
CPT/HCPCS: 74018

== ENCOUNTER 2021-06-02 11:45 | Outpatient (CLI) | payer BC, SELFPAY ==
--- NOTE | 2021-06-02 11:50 | RAD_ITS ---
STUDY: X-RAY - ABDOMEN/PELVIS REASON FOR EXAM: Female, 25 years old. Sitz markers, Day 5. TECHNIQUE: Single AP view of the abdomen / pelvis on 2 images. COMPARISON: 05/31/2021. FINDINGS: Normal visualized lung bases. There is an unremarkable bowel gas pattern. There is no demonstrated free abdominal air. The visualized liver, spleen and kidneys are grossly normal in size and morphology. Normal soft tissue structures. Normal visualized osseous structures. RAD/Abdomen Single View IMPRESSION: No markers identified in the abdomen. Electronically Signed: Elmer Carlos MD at 9:09 EDT ,
== END 2021-06-02 23:59 | disposition home or self-care (01) ==
LOC: RAD 11:47
PROVIDERS: PCP Family Medicine; Referring Provider Internal Medicine Gastroenterology; Visit Provider Internal Medicine Gastroenterology
DX: K59.00 Constipation, unspecified (principal)
CPT/HCPCS: 74018

== ENCOUNTER 2021-06-06 10:28 | Day surgery (SDC) | payer BC, SELFPAY ==
[2021-06-06] VITALS (7 sets, daily range): BP systolic 117–123; BP diastolic 69–89; PULSE 72–85; RESP 14–17; TEMP 36.9–37.1; O2SAT 97–100; BMI 27.8
[2021-06-06 10:55] LABS: Internal QC Validated? YES +Cl - CLEAR BKGD; Pregnancy, Urine Negative Negative
[2021-06-06] MEDS: Lactated Ringers 1,000 ML 15 ML IV (10:55)
--- NOTE | 2021-06-06 11:12 | PCM.PN.BLA ---
Progress Note Addendum to H&P: I have re-examined the patient. There are no clinical changes since date of exam.
--- NOTE | 2021-06-06 11:17 | OP.PCM_ITS ---
Problems Associated Problem List Diagnoses (1) Contraceptive management: (2) Vaginismus: Report of Operation Date of Procedure: 06/06/21 Pre-Operative Diagnosis: Contraceptive mgmt with ParaGard IUD, Vaginismus (does not tolerate vaginal exams) Post-Operative Diagnosis: same Surgery/Procedure Performed:: EUA, ParaGard IUD insertion Surgeon: Jana Vides Type of Anesthesia: MAC Specimen's removed: none Drains: none Estimated Blood Loss (mL): <5 Fluids Replaced: 200 Description of Procedure: MAC anesthesia was given. [facility] performed. Uterus midposition, freely mobile. At this time weighted speculum was placed in posterior fornix vagina single-tooth tenaculum was used to gently grasp the anterior lip the cervix. At this time the uterus was sounded to approximately 8cm. At this time the ParaGard IUD was opened and inserted to the uterine fundus without difficulty. The strings were cut to 2 cm from the cervical os. At this time the tenaculum was removed the weighted speculum was removed vaginal sweep was performed was negative. Grafts/Implants Used: Paragard IUD Procedure Start Time: 11:38 Procedure Stop Time: 11:40 Complications none Admit VTE Documentation VTE Present on Admission: Yes VTE Mechan Device Prophylaxis: SCD's VTE Pharm Prophylaxis ordered?: No
--- NOTE | 2021-06-06 11:20 | PCM.DC ---
Discharge Instructions Diet Discharge Diet: No restrictions Activity Discharge Activity: Return to Normal Activity May resume sexual activity in: No Restrictions Dressing / Incision Call your doctor if you observe: Fever of 101 or Higher, Using more than 1 pad per hour and Uncontrolled pain Follow Up Care Please Follow Up With: Jana Vides MD When: 4-6 weeks IUD check in office Test Results: Test results from this visit will be discussed in further detail at your follow-up appointment, if applicable. Discharge Plan Admission Attending Provider: Jana Vides Primary Care Provider: Helder Izaguirre Discharge Orders/Prescriptions Prescriptions: No Action lamotrigine [Lamictal] 150 MG tablet 200 mg PO QHS RF: 0 lamotrigine [Lamictal] 100 mg Tablet 50 mg PO 0900 RF: 0 Rexulti 2 mg tablet 2 mg PO QHS RF: 0 gabapentin 300 mg capsule 300 mg PO QHS RF: 0 pantoprazole [Protonix] 40 mg tablet,delayed release (DR/EC) 40 mg PO BID RF: 0 sucralfate [Carafate] 1 gram tablet 1 g PO QAC Qty: 42 RF: 0
== END 2021-06-06 23:59 | disposition home or self-care (01) ==
LOC: SDC 10:29 → AC 10:31
PROVIDERS: Anesthesiology; PCP Family Medicine; Referring Provider Obstetrics & Gynecology; Visit Provider Obstetrics & Gynecology
PROC: (CPT 57410; principal; 2021-06-06 12:15)
DX: Z30.9 Encounter for contraceptive management, unspecified (principal); F25.0 Schizoaffective disorder, bipolar type; F31.9 Bipolar disorder, unspecified; N94.2 Vaginismus; F42.9 Obsessive-compulsive disorder, unspecified; F43.10 Post-traumatic stress disorder, unspecified; Z79.899 Other long term (current) drug therapy
CPT/HCPCS: 57410; 58300; 00940; 81025; J7120

== ENCOUNTER 2021-06-17 01:19 | Emergency (ER) | payer BC, SELFPAY ==
[2021-06-17 01:22] VITALS: BP 151/92; PULSE 102; RESP 18; TEMP 36.6; O2SAT 100; BMI 28.3
[2021-06-17] MEDS: predniSONE 20 MG Tablet 60 MG PO (01:39)
[2021-06-17] MEDS: Famotidine 20 MG Tablet 40 MG PO (01:39)
[2021-06-17] MEDS: DiphenhydrAMINE 25 MG Capsule 50 MG PO (01:39)
--- NOTE | 2021-06-17 01:51 | EX.ED.DYSGE1 ---
HPI History of Present Illness Chief Complaint: Allergic Reaction Narrative Narrative: Patient is a 25-year-old female who states that she ate kiwi about 1 to 1.5 hours ago. She states she does not typically eat this type of fruit and after doing so she felt like her lips were swelling and that her throat was tight. She states she called a 24-hour nurse hotline and was advised to come to the hospital for evaluation. Patient states has been no other exposure than what she ate and states no one else at home has the same symptoms. However with concern she would progress to difficulty breathing she presents for evaluation [facility] Medical History Anemia Back pain Bipolar 1 disorder Diarrhea Former smoker Gastric reflux Injury of head and neck Loss of consciousness OCD (obsessive compulsive disorder) PTSD (post-traumatic stress disorder) Schizoaffective disorder, bipolar type Thyroid disease Home Medications lamotrigine [Lamictal] 200 mg PO QHS 04/29/17 [History Last Taken Unknown] brexpiprazole [Rexulti] 2 mg PO QHS 04/21/21 [History Last Taken Unknown] lamotrigine [Lamictal] 50 mg PO 0900 04/21/21 [History Last Taken 04/22/21] sucralfate 1 gram tablet 1 g PO QAC #42 tab 05/27/21 [Rx Last Taken Unknown] gabapentin 300 mg PO QHS 05/30/21 [History Last Taken Unknown] pantoprazole [Protonix] 40 mg PO BID 05/30/21 [History Last Taken Unknown] prednisone 40 mg PO DAILY 4 Days #8 tab 06/17/21 [Rx Last Taken Unknown] Allergy/AdvReac Type Severity Reaction Status Date / Time albuterol [From Ventolin HFA] Allergy Unknown Verified 06/17/21 01:21 pineapple Allergy Other Verified 06/17/21 01:21 mushroom AdvReac Diarrhea Verified 06/17/21 01:21 Surgical History Hx of colonoscopy Hx of total adrenalectomy Social History Smoking Status: Former smoker ROS ROS ED Constitutional Constitutional ED: Denies chills or fever(s) ENT ENT ED: Reports other Details: Positive lip swelling ; Denies sore throat Cardiovascular Cardiovascular: Denies chest pain Respiratory/Chest Respiratory/Chest: Denies cough or dyspnea Gastrointestinal Gastrointestinal: Denies abdominal pain, diarrhea, nausea or vomiting Genitourinary Genitourinary ED: Denies dysuria Musculoskeletal Musculoskeletal: Denies myalgias Integumentary Denies rash Neurologic Neurologic: Denies headache(s) EXAM Physical Exam Const Vital Signs: 06/17/21 01:22 Temperature 98 F Temperature Source Temporal Pulse Rate 102 H Respiratory Rate 18 Blood Pressure 151/92 H Blood Pressure Mean 111 Pulse Ox 100 Oxygen Delivery Method Room Air Positive well nourished and well developed General Appearance ED: well developed HEENT Reports moist mucous membranes HEENT Narrative: There is slight swelling to the upper and lower lip but no edema of the tongue no oral lesions no airway edema or compromise Eyes PERRL and EOMs intact bilaterally Neck supple and no JVD Neck Narrative: No crepitance palpated Resp normal respiratory effort and clear to auscultation bilaterally Cardio regular rate and regular rhythm Extremity normal to inspection Neuro oriented x3 and CN's II-XII intact bilaterally Sensorium / Orientation: alert Motor Exam: strength 5/5 throughout Psych Psych Narrative: Patient has a flat/depressed affect Mood & Affect: depressed Skin no rashes or lesions noted MDM MDM MDM Narrative Medical decision making narrative: Patient presented to the ER in no acute respiratory distress without change in voice or difficulty with secretions. Clinically she was having a mild allergic reaction with mild irritation/swelling to her lip. She was given Benadryl Pepcid and prednisone secondary to the allergic reaction. She was watched in the ER and there was no progression of symptoms. Therefore at this time as she does not have respiratory distress or airway compromise there is no need for further work-up and patient can be placed on prednisone and discharged home. Discharge Plan Triage Chief Complaint: Allergic Reaction ED Provider: Julian Medrano Dx/Rx/DC Orders Clinical Impression: Acute allergic reaction Instructions: ED General Allergic Reactions Prescriptions: New prednisone 20 mg tablet 40 mg PO DAILY 4 Days Qty: 8 RF: 0 No Action lamotrigine [Lamictal] 150 MG tablet 200 mg PO QHS RF: 0 lamotrigine [Lamictal] 100 mg Tablet 50 mg PO 0900 RF: 0 Rexulti 2 mg tablet 2 mg PO QHS RF: 0 gabapentin 300 mg capsule 300 mg PO QHS RF: 0 pantoprazole [Protonix] 40 mg tablet,delayed release (DR/EC) 40 mg PO BID RF: 0 sucralfate [Carafate] 1 gram tablet 1 g PO QAC Qty: 42 RF: 0 Primary Care Provider: Helder Izaguirre Referrals: Helder Izaguirre MD [Primary Care Provider] - Activity Restrictions/Additional Instructions: Please do not eat kiwi any further as this is the most likely culprit of your allergic reaction today. Continue with the steroids once a day to keep the inflammation under control and add Benadryl and or Pepcid if you feel necessary. Please return to the ER should you have any further concerns Disposition Disposition: Home, Self Care
[2021-06-17 02:30] VITALS: BP 124/83; PULSE 90; RESP 16; O2SAT 100
== END 2021-06-17 02:32 | disposition home or self-care (01) ==
PROVIDERS: Emergency Provider Emergency Medicine; PCP Family Medicine; Visit Provider Emergency Medicine
DX: T78.40XA Allergy, unspecified, initial encounter (principal); F25.0 Schizoaffective disorder, bipolar type; K21.9 Gastro-esophageal reflux disease without esophagitis; Z79.899 Other long term (current) drug therapy; Z87.891 Personal history of nicotine dependence
CPT/HCPCS: 99283

== ENCOUNTER → 2021-09-03 | Outpatient (CLI) | payer BC, SELFPAY ==
[2021-09-03 12:47] LABS: Absolute Lymphocyte Count 1.75 X10^3/uL (0.83-4.51); Absolute Neutrophil Count 3.4 X10^3/uL (2.0-7.7); Basophil# 0.06 X10^3/uL; Basophil% 1.1 % (0-1); Eosinophil# 0.04 X10^3/uL; Eosinophils% 0.7 % (0-5); Hematocrit 37.9 % (37-47); Hemoglobin 11.6 g/dL (12.0-15.0); Lymphocyte # 1.75 X10^3/ul (0.83-4.51); Lymphocyte % 31.4 % (19-41); Mean Corp Hgb Conc 30.6 g/dL (32-36); Mean Corpuscular Hgb 25.4 pg (27.0-32.0); Mean Corpuscular Volume 82.9 fL (81-99); Mean Platelet Vol. 10.9 fl (6.2-12.0); Monocyte# 0.34 X10^3/uL; Monocyte% 6.1 % (0-10); NRBC Flagged by Analyzer 0 % (0-5); Neutrophil # 3.37 X10^3/uL (2.7-7.7); Neutrophil % 60.3 % (47-70); Platelet Count 330 K/mm3 (150-450); Red Blood Count 4.57 M/mm3 (4.2-5.4); White Blood Count 5.6 K/mm3 (4.4-11.0)
[2021-09-03 13:03] LABS: ALB/GLOB Ratio 0.8 RATIO (0.9-2.4); AST(SGOT) 13 U/L (15-37); Alanine Aminotransfer ALT/SGPT 12 U/L (13-56); Albumin, Serum 3.7 g/dL (3.2-5.0); Alkaline Phosphatase 72 U/L (45-117); Anion Gap 9 (5-15); BUN 8 mg/dL (7-18); BUN/Creat Ratio 6.7 RATIO (10-20); Calcium,Total 9.2 mg/dL (8.5-10.1); Chloride 105 mmol/L (98-107); Creatinine, Serum 1.19 mg/dL (0.55-1.02); EST Glomerular Filtration Rate 58 mL/min (>60); Est Glom Filt Rate - Afr Amer 70 mL/min (>60); Globulin 4.6 g/dL (2.2-4.2); Glucose 158 mg/dL (74-106); Potassium 3.7 mmol/L (3.5-5.1); Protein, Total 8.3 g/dL (6.4-8.2); Sodium Level 136 mmol/L (136-145)
[2021-09-04 11:23] LABS: Immunoglobulin M 304 mg/dL (26-217)
== END | disposition home or self-care (01) ==
PROVIDERS: PCP Internal Medicine; Visit Provider Internal Medicine Gastroenterology
DX: R19.7 Diarrhea, unspecified (principal); R79.9 Abnormal finding of blood chemistry, unspecified
CPT/HCPCS: 36415; 80053; 82784; 85025

== ENCOUNTER → 2022-04-07 | Outpatient (CLI) | payer OTHER, SELFPAY ==
[2022-04-07 10:10] LABS: Hematocrit 41.5 % (37-47); Hemoglobin 12.7 g/dL (12.0-15.0); Mean Corp Hgb Conc 30.6 g/dL (32-36); Mean Corpuscular Hgb 26.8 pg (27.0-32.0); Mean Corpuscular Volume 87.6 fL (81-99); Mean Platelet Vol. 9.8 fl (6.2-12.0); Platelet Count 275 K/mm3 (150-450); RBC Distribution Width CV 15.2 % (11.6-14.6); RBC Distribution Width SD 48.6 fl (35.1-43.9); Red Blood Count 4.74 M/mm3 (4.2-5.4); White Blood Count 8.9 K/mm3 (4.4-11.0)
[2022-04-07 10:41] LABS: Anion Gap 6 (5-15); BUN 10 mg/dL (7-18); BUN/Creat Ratio 10.3 RATIO (10-20); Calcium,Total 9.2 mg/dL (8.5-10.1); Chloride 106 mmol/L (98-107); Creatinine, Serum 0.97 mg/dL (0.55-1.02); EST Glomerular Filtration Rate 73 mL/min (>60); Est Glom Filt Rate - Afr Amer 88 mL/min (>60); Glucose 93 mg/dL (74-106); Potassium 4.1 mmol/L (3.5-5.1); Sodium Level 138 mmol/L (136-145)
[2022-04-07 10:47] LABS: Internal QC Validated? YES +Cl - CLEAR BKGD
[2022-04-07 10:48] LABS: Pregnancy, Urine Negative Negative
--- NOTE | 2022-04-08 08:24 | PCM.TILTTABL ---
Staff Staff: Colleen Mcfarland Summary Pre Test Resting HR: 70 Pre Test Resting BP: 117/87 Minimum Test HR: 68 Maximum Test HR: 114 Minimum Test BP: 78/45 Maximum Test BP: 126/75 Reason for Test Termination: Reached Maximum Test Time Physician Tilt Table Report Patient's Physicians Primary Care Physician: Seth Gonzalez [employer] Department Supervisor: Matti Kennedy Indications/Diagnosis: Dizziness Procedure Comments: The patient was brought to the noninvasive lab in the postabsorptive nonsedated state. Informed consent was obtained. Initial vital signs were obtained. The resting heart rate was 75 bpm in sinus rhythm with a blood pressure of 130/80 mmHg. The patient was then placed in the 70 degree head upright tilt position for approximately 20 minutes. Vital signs were obtained. The patient was noted to be minimally symptomatic with mild nausea and dizziness but heart rate and blood pressure remained within normal limits. The patient was then placed back in the recumbent position and administered sublingual nitroglycerin. Patient was then put back in the head upright tilt position. Approximately 5 minutes after this patient was noted to have an increased heart rate to 114 bpm became clammy and legs became weak. The blood pressure then subsequently dropped to 78/45 mmHg. No syncope was noted. The test was ended. Patient recovered well. Summary: Head upright tilt table test with no definitive evidence of syncope or vasovagal events
[2022-04-08 08:31] VITALS: BP 117/87; BP 126/75; BP 78/45
== END | disposition home or self-care (01) ==
PROVIDERS: PCP Internal Medicine; Referring Provider Nurse Practitioner; Visit Provider Nurse Practitioner
DX: R29.6 Repeated falls (principal); R42 Dizziness and giddiness; R55 Syncope and collapse
CPT/HCPCS: 36415; 80048; 81025; 85027; 93660; J7040; A4216

== ENCOUNTER 2022-06-12 10:32 | Emergency (ER) | payer OTHER, SELFPAY ==
[2022-06-12 10:33] VITALS: BP 126/76; PULSE 91; RESP 18; TEMP 35.8; O2SAT 97; BMI 28.5
--- NOTE | 2022-06-12 10:56 | EDS_ITS ---
HPI HPI - GI History of Present Illness Chief Complaint: Abd Pain Detail of Chief Complaint: Patient with vomiting and diarrhea and abdominal pain x4 days Informant: patient Narrative Narrative: Patient presents the emergency department with 4-day history of vomiting and diarrhea as well as abdominal pain. Patient states that she has gastrointestinal problems and sees Dr. Fournier. She thinks she may have irrita ble bowel. Patient states that she is vomiting frequently and having watery stools about every 90 minutes. She denies any blood in her stool or black tarry stool. She denies fever. She denies urinary symptoms. She denies sick contacts. Patient went to urgent care few days ago and had a urine culture that was negative and some basic labs and was advised that if her pain continued to be seen in the emergency department. 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 [facility] Medical History Anemia Back pain Bipolar 1 disorder Diarrhea Former smoker Gastric reflux Injury of head and neck Loss of consciousness OCD (obsessive compulsive disorder) PTSD (post-traumatic stress disorder) Schizoaffective disorder, bipolar type Thyroid disease Home Medications lamotrigine 150 mg tablet (Lamictal) 200 mg PO QHS 04/29/17 [History Last Taken Unknown] brexpiprazole 2 mg tablet (Rexulti) 2 mg PO QHS 04/21/21 [History Last Taken Unknown] lamotrigine 100 mg tablet (Lamictal) 50 mg PO 0900 04/21/21 [History Last Taken 04/22/21] sucralfate 1 gram tablet (Carafate) 1 g PO QAC #42 tabs 05/27/21 [Rx Last Taken Unknown] gabapentin 300 mg capsule 300 mg PO QHS 05/30/21 [History Last Taken Unknown] pantoprazole 40 mg tablet,delayed release (Protonix) 40 mg PO BID 05/30/21 [History Last Taken Unknown] prednisone 20 mg tablet 40 mg PO DAILY 4 days #8 tabs 06/17/21 [Rx Last Taken Unknown] Lactobac no.2-Bifidobac no.1-S. thermo 112.5 billion cell capsule (VSL#3) 1 cap PO DAILY #30 caps 07/02/21 [Rx Last Taken Unknown] pantoprazole 20 mg tablet,delayed release 20 mg PO DAILY #30 tabs 09/12/21 [Rx Last Taken Unknown] ifvjjg-[id number]-dtmntog 20,000-63,000-84,000 unit capsule, delayed rel (Zenpep) 1 cap PO TID #90 caps 02/23/22 [Rx Last Taken Unknown] dicyclomine 10 mg capsule 20 mg PO TIDAC #20 CAPSULES 06/12/22 [Rx Last Taken Unknown] Allergy/AdvReac Type Severity Reaction Status Date / Time albuterol [From Ventolin HFA] Allergy Unknown Verified 06/12/22 10:34 kiwi Allergy Swelling Verified 06/12/22 10:34 pineapple Allergy Other Verified 06/12/22 10:34 mushroom AdvReac Diarrhea Verified 06/12/22 10:34 Surgical History Hx of colonoscopy Hx of total adrenalectomy Social History Smoking Status: Former smoker ROS ROS ED Review of Systems ROS Unobtainable: other Constitutional Constitutional ED: Reports lethargy; Denies chills, fever(s), sweats or weight loss Eyes Eyes: Denies blurry vision, change in vision or diplopia ENT ENT ED: Denies rhinorrhea or sore throat Cardiovascular Cardiovascular: Reports racing heartbeat; Denies chest pain or orthopnea Respiratory/Chest Respiratory/Chest: Denies cough, dyspnea, dyspnea on exertion, orthopnea or sputum Gastrointestinal Gastrointestinal: Reports abdominal pain, diarrhea, nausea and vomiting Genitourinary Genitourinary ED: Denies dysuria, hematuria or urinary frequency Musculoskeletal Musculoskeletal: Denies arthralgias, back pain, myalgias or neck pain Integumentary Denies abscess, Abrasions or rash Neurologic Neurologic: Denies headache(s) or weakness Psychiatric Psychiatric: Denies anxiety, depression or suicidal thoughts Endocrine Endocrinology: Denies polydipsia, polyphagia or polyuria Hematologic/Lymphatic Hematologic/Lymphatic: Denies easy bleeding, easy bruising or lymphadenopathy Allergic/Immunologic Allergic/Immunologic ED: Denies mouth swelling, tongue swelling or urticaria EXAM Physical Exam Const Vital Signs: 06/12/22 10:33 Temperature 96.5 F L Temperature Source Temporal Pulse Rate 91 Respiratory Rate 18 Blood Pressure 126/76 H Blood Pressure Mean 92 Pulse Ox 97 Oxygen Delivery Method Room Air Positive well nourished and well developed General Appearance ED: well developed and NAD HEENT Reports TM's clear and moist mucous membranes normocephalic and atraumatic; Negative for trauma or tenderness Tympanic Membrane ED: Yes TM's clear Eyes PERRL and EOMs intact bilaterally General Eye ED: Negative for pale conjunctiva or scleral icterus Neck no lymphadenopathy, supple and no JVD General: Negative for tenderness Chest Wall inspection of chest normal and palpation of chest normal Chest: Negative for tenderness Resp normal respiratory effort and clear to auscultation bilaterally Effort and Inspection: Negative for respiratory distress or pain with movement Auscultation: Negative for rhonchi, wheezes or diminished lung sounds Cardio regular rate, regular rhythm, S1 normal heart sound, S2 normal heart sound and no murmurs Peripheral Pulses: pulses 2+ throughout GI normal to inspection, nondistended, normoactive bowel sounds, soft to palpation, non-tender, non-distended and no masses Back/Spine no CVA tenderness and no thoracic nor lumbar tenderness Extremity normal to inspection General Extremety ED: Negative for edema General Extremity: Negative for edema Neuro oriented x3, CN's II-XII intact bilaterally, no sensory deficits noted and gait normal Sensorium / Orientation: awake, alert, oriented to person, oriented to place and oriented to time Motor Exam: strength 5/5 throughout and strength abnormal Psych mental status grossly normal Skin no rashes or lesions noted and no wounds MDM MDM MDM Narrative Medical decision making narrative: Patient presents with vomiting and diarrhea for last 4 days and some diffuse intermittent abdominal discomfort. Abdominal exam is benign. CBC with differential showed a slightly elevated white count of 11.8. Chemistries unremarkable. LFTs normal. hCG negative. Serum Prag was negative. Urinalysis was unremarkable. Patient was given a liter normal same fluid bolus as well as Zofran and Bentyl and she felt markedly improved. On repeat abdominal exam at 1230 she has no discomfort on exam. Suspect possibly of viral gastroenteritis versus chronic IBS type symptoms. Patient has Zofran. I will will write her a prescription for Bentyl. She is to follow-up with Dr. Fournier within next 3 to 5 days. She is advised to return if worsening pain, fever, vomiting, or condition should worsen anyway. Lab Data Attestation: I reviewed the patient's lab results. Labs: Laboratory Results - last 24 hr 06/12/22 06/12/22 06/12/22 11:05 11:05 11:05 WBC 11.8 H RBC 4.60 Hgb 13.2 Hct 41.1 MCV 89.3 MCH 28.7 MCHC 32.1 RDW Std Deviation 43.6 RDW Coeff of Gayathri 13.3 Plt Count 307 MPV 9.5 Immature Gran % (Auto) 0.400 Neut % (Auto) 89.7 H Lymph % (Auto) 4.7 L Motley % (Auto) 4.3 Eos % (Auto) 0.7 Baso % (Auto) 0.2 Absolute Neuts (auto) 10.6 H Absolute Lymphs (auto) 0.56 L Nucleated RBC % 0 Differential Comment SCANNED Sodium 137 Potassium 3.9 Chloride 107 Carbon Dioxide 25.0 Anion Gap 5 BUN 13 Creatinine 0.94 Estim Creat Clear Calc 77.63 Est GFR (MDRD) Af Amer 91 Est GFR (MDRD) Non-Af 75 BUN/Creatinine Ratio 13.8 Glucose 104 Calcium 9.1 Total Bilirubin 0.70 AST 18 ALT 23 Alkaline Phosphatase 74 Total Protein 8.0 Albumin 4.2 Globulin 3.8 Albumin/Globulin Ratio 1.1 Lipase 105 Serum , Qual NEGATIVE Urine Color Urine Clarity Urine pH Ur Specific [place] Urine Protein Urine Glucose (UA) Urine Ketones Urine Occult Blood Urine Nitrite Urine Bilirubin Urine Urobilinogen Ur Leukocyte Esterase Urine RBC Urine WBC Ur Squamous Epith Cells Urine Bacteria Urine Mucus 06/12/22 11:10 WBC RBC Hgb Hct MCV MCH MCHC RDW Std Deviation RDW Coeff of Gayathri Plt Count MPV Immature Gran % (Auto) Neut % (Auto) Lymph % (Auto) Motley % (Auto) Eos % (Auto) Baso % (Auto) Absolute Neuts (auto) Absolute Lymphs (auto) Nucleated RBC % Differential Comment Sodium Potassium Chloride Carbon Dioxide Anion Gap BUN Creatinine Estim Creat Clear Calc Est GFR (MDRD) Af Amer Est GFR (MDRD) Non-Af BUN/Creatinine Ratio Glucose Calcium Total Bilirubin AST ALT Alkaline Phosphatase Total Protein Albumin Globulin Albumin/Globulin Ratio Lipase Serum , Qual Urine Color Yellow Urine Clarity Clear Urine pH 5.0 Ur Specific [place] 1.020 Urine Protein 30 H Urine Glucose (UA) Normal Urine Ketones 5 H Urine Occult Blood 25 H Urine Nitrite Negative Urine Bilirubin Negative Urine Urobilinogen Normal Ur Leukocyte Esterase 500 H Urine RBC 0-5 SEEN Urine WBC 5-10 SEEN Ur Squamous Epith Cells 0-5 SEEN Urine Bacteria 0 SEEN Urine Mucus 0 SEEN Discharge Plan Triage Chief Complaint: Abd Pain ED Provider: Marianne Ruiz Dx/Rx/DC Orders Clinical Impression: Viral gastroenteritis, Abdominal pain Instructions: ED Abdominal Pain Unkn Cause Fem, ED Gastroenteritis, Viral (Adult) Prescriptions: New dicyclomine 10 mg capsule 20 mg PO TIDAC Qty: 20 0RF No Action VSL#3 112.5 billion cell capsule 1 cap PO DAILY Qty: 30 0RF pantoprazole 20 mg tablet,delayed release (DR/EC) 20 mg PO DAILY Qty: 30 3RF Zenpep 20,000-63,000- 84,000 unit capsule,delayed release(DR/EC) 1 cap PO TID Qty: 90 0RF Rx Instructions: administer with meals and/or snacks lamotrigine [Lamictal] 150 MG tablet 200 mg PO QHS lamotrigine [Lamictal] 100 mg Tablet 50 mg PO 0900 Rexulti 2 mg tablet 2 mg PO QHS Label Comments: TAKE 1 TABLET BY MOUTH EVERY DAY gabapentin 300 mg capsule 300 mg PO QHS Label Comments: Take 1 capsule by mouth at bedtime as needed for up to 30 days. pantoprazole [Protonix] 40 mg tablet,delayed release (DR/EC) 40 mg PO BID Rx Instructions: take two times a day for eight week then once a day for eight weeks. prednisone 20 mg tablet 40 mg PO DAILY 4 Days Qty: 8 0RF sucralfate [Carafate] 1 gram tablet 1 g PO QAC Qty: 42 0RF Primary Care Provider: Seth Gonzalez Referrals: Quentin Fournier DO [Med Staff - Active Staff] - 3-5 Days Seth Gonzalez MD [Primary Care Provider] - Disposition Disposition: Home, Self Care
[2022-06-12] MEDS: Dicyclomine 20 MG/2 ML Vial IM (11:11)
[2022-06-12 11:12] LABS: Absolute Lymphocyte Count 0.56 X10^3/uL (0.83-4.51); Absolute Neutrophil Count 10.6 X10^3/uL (2.0-7.7); Basophil# 0.02 X10^3/uL; Basophil% 0.2 % (0-1); Eosinophil# 0.08 X10^3/uL; Eosinophils% 0.7 % (0-5); Hematocrit 41.1 % (37-47); Hemoglobin 13.2 g/dL (12.0-15.0); Lymphocyte # 0.56 X10^3/ul (0.83-4.51); Lymphocyte % 4.7 % (19-41); Mean Corp Hgb Conc 32.1 g/dL (32-36); Mean Corpuscular Hgb 28.7 pg (27.0-32.0); Mean Corpuscular Volume 89.3 fL (81-99); Mean Platelet Vol. 9.5 fl (6.2-12.0); Monocyte# 0.51 X10^3/uL; Monocyte% 4.3 % (0-10); NRBC Flagged by Analyzer 0 % (0-5); Neutrophil # 10.57 X10^3/uL (2.7-7.7); Neutrophil % 89.7 % (47-70); POSITIVE DIFFERENTIAL YES; Platelet Count 307 K/mm3 (150-450); RBC Distribution Width CV 13.3 % (11.6-14.6); RBC Distribution Width SD 43.6 fl (35.1-43.9); White Blood Count 11.8 K/mm3 (4.4-11.0)
[2022-06-12 11:13] LABS: Differential Indicated SCAN CRITERIA MET
[2022-06-12] MEDS: Ondansetron 4 MG/2 ML Vial IV (11:13)
[2022-06-12] MEDS: 0.9% Normal Saline 1,000 ML 1000 ML IV (11:13)
[2022-06-12 11:19] LABS: Bacteria 0 SEEN /hpf (None Seen); Mucous, Urine 0 SEEN /hpf (<or=2+)
[2022-06-12 11:20] LABS: Glucose, Dipstick Normal (Normal); Ketone-Dipstick 5 mg/dl (Negative); Leukocyte Esterase-Dipstick 500 /ul (Negative); Nitrite-Dipstick Negative (Negative); Occult Blood-Urine 25 /ul (Negative); Protein-Dipstick 30 mg/dl (Negative); Urine Bilirubin Dipstick Negative (Negative); Urine Urobilinogen Normal (Normal)
[2022-06-12 11:21] LABS: Internal QC Validated? YES +Cl - CLEAR BKGD; Pregnancy, Serum, hCG Quali. NEGATIVE Negative
[2022-06-12 11:21] LABS: Color, Urine Yellow (Yellow); Urine Clarity Clear (Clear)
[2022-06-12 11:28] LABS: ALB/GLOB Ratio 1.1 RATIO (0.9-2.4); AST(SGOT) 18 U/L (15-37); Alanine Aminotransfer ALT/SGPT 23 U/L (13-56); Albumin, Serum 4.2 g/dL (3.2-5.0); Alkaline Phosphatase 74 U/L (45-117); Anion Gap 5 (5-15); BUN 13 mg/dL (7-18); BUN/Creat Ratio 13.8 RATIO (10-20); Calcium,Total 9.1 mg/dL (8.5-10.1); Chloride 107 mmol/L (98-107); Creatinine, Serum 0.94 mg/dL (0.55-1.02); EST Glomerular Filtration Rate 75 mL/min (>60); Est Glom Filt Rate - Afr Amer 91 mL/min (>60); Estimated Creatinine Clearance 77.63 ml/min; Globulin 3.8 g/dL (2.2-4.2); Glucose 104 mg/dL (74-106); Lipase 105 U/L (73-393); Potassium 3.9 mmol/L (3.5-5.1); Sodium Level 137 mmol/L (136-145)
[2022-06-12 11:33] LABS: Differential Comment SCANNED
[2022-06-12 11:38] LABS: Red Blood Cells-Urine 0-5 SEEN /hpf (0-5); Squamous Epithelial Cells - UA 0-5 SEEN /hpf (5-10); White Blood Cells 5-10 SEEN /hpf (0-5)
[2022-06-12 12:50] VITALS: RESP 16
== END 2022-06-12 12:51 | disposition home or self-care (01) ==
PROVIDERS: Emergency Provider Emergency Medicine; PCP Internal Medicine; Visit Provider Emergency Medicine
DX: A08.4 Viral intestinal infection, unspecified (principal); Z87.891 Personal history of nicotine dependence
CPT/HCPCS: 80053; 81001; 83690; 84703; 85025; 96361; 96372; 96374; 99283; J7030; A4216; J2405

== ENCOUNTER → 2022-06-16 | Outpatient (CLI) | payer OTHER, SELFPAY ==
[2022-06-16 10:33] LABS: Erythrocyte Sedimentation Rate 12 mm/hr (0-30)
[2022-06-16 10:56] LABS: Vitamin B12 540 pg/mL (211-911); Vitamin D,25 Hydroxy 11.1 ng/mL
[2022-06-16 11:32] LABS: AST(SGOT) 14 U/L (15-37); Alanine Aminotransfer ALT/SGPT 25 U/L (13-56); Alkaline Phosphatase 77 U/L (45-117); Anion Gap 2 (5-15); BUN 9 mg/dL (7-18); BUN/Creat Ratio 8.4 RATIO (10-20); CRP < 2.90 mg/L (0.0-3.0); Chloride 108 mmol/L (98-107); Creatinine, Serum 1.07 mg/dL (0.55-1.02); EST Glomerular Filtration Rate 65 mL/min (>60); Est Glom Filt Rate - Afr Amer 79 mL/min (>60); Ferritin 27 ng/mL (8-252); Free T3 2.3 pg/mL (2.18-3.98); Globulin 4.1 g/dL (2.2-4.2); Glucose 81 mg/dL (74-106); LDH 127 U/L (84-246); Potassium 3.5 mmol/L (3.5-5.1); Protein, Total 8.1 g/dL (6.4-8.2); Sodium Level 136 mmol/L (136-145); Thyroid Stim Hormone (TSH) 0.77 uIU/mL (0.358-3.74)
[2022-06-18 21:07] LABS: Albumin 3.9 g/dL (2.9-4.4); Alpha-1-Globulins 0.3 g/dL (0.0-0.4); Alpha-2-Globulins 0.7 g/dL (0.4-1.0); Cytoplasmic Ab (C-ANCA) <1:20 titer (Neg:<1:20); Gamma Globulin 1.2 g/dL (0.4-1.8); Immunoglobulin A 186 mg/dL (87-352); Immunoglobulin G 1101 mg/dL (586-1602); Immunoglobulin M 283 mg/dL (26-217); PROEL- TOTAL PROTEIN 7.2 g/dL (6.0-8.5)
[2022-06-18 21:18] LABS: EBV Acute VCA IgM < 36.0 U/mL (0.0-35.9); EBV Nuclear Antigen IgG > 600.0 U/mL (0.0-17.9); EBV-VCA IgG 99.3 U/mL (0.0-17.9); Immunoglobulin E 11 IU/mL (6-495); Perinuclear Ab (P-ANCA) <1:20 titer (Neg:<1:20)
== END | disposition home or self-care (01) ==
LOC: LAB 09:41
PROVIDERS: PCP Internal Medicine; Referring Provider Internal Medicine Gastroenterology; Visit Provider Internal Medicine Gastroenterology
DX: A08.4 Viral intestinal infection, unspecified (principal); R10.9 Unspecified abdominal pain; K58.9 Irritable bowel syndrome, unspecified; R11.0 Nausea; R79.9 Abnormal finding of blood chemistry, unspecified
CPT/HCPCS: 36415; 80053; 82306; 82607; 82728; 82746; 82784; 82785; 83615; 84165; 84439; 84443; 84481; 85652; 86140; 86256; 86334; 86664; 86665; 87040

== ENCOUNTER → 2022-07-13 | Outpatient (CLI) | payer OTHER, SELFPAY ==
--- NOTE | 2022-07-13 08:20 | RAD_ITS ---
PROCEDURE: After contrast Upper GI with Small Bowel Follow Through DATE OF EXAMINATION: July 13, 2022. INDICATION: Female, 26 years old. FLUOROSCOPY TIME (if supplied): (0:53) minutes/seconds TECHNIQUE: Radiographic and fluoroscopic images of the distal esophagus, stomach, and entire small intestine were obtained following the oral ingestion of barium. COMPARISON: None. FINDINGS: The emery grinder film of the abdomen demonstrates a normal bowel gas pattern. There are no abnormal calcifications or organomegaly demonstrated. The visualized osseous structures are normal. IUD is seen within the uterus. The esophagus is unremarkable. No evidence of esophageal obstruction or mass lesion. The stomach and duodenum are unremarkable. No evidence of ulceration. A single contrast small bowel follow through exam demonstrates the small bowel to have no evidence for stricture, ulceration or mass. The transit time is normal at 30 minutes. The terminal ileum is unremarkable. RAD/Upper GI/w Small Bowel IMPRESSION: 1. Normal air-contrast upper GI series and small bowel follow-through examination. Electronically Signed: Rick Liao MD at 13:41 EDT ,
== END | disposition home or self-care (01) ==
LOC: RAD 08:11
PROVIDERS: PCP Internal Medicine; Referring Provider Internal Medicine Gastroenterology; Visit Provider Internal Medicine Gastroenterology
DX: R11.0 Nausea (principal)
CPT/HCPCS: 74246; 74248

== ENCOUNTER → 2022-09-23 | Outpatient (CLI) | payer OTHER, SELFPAY ==
--- NOTE | 2022-09-23 14:36 | BI_ITS ---
MAMMOGRAPHY - BILATERAL DIAGNOSTIC REASON FOR EXAM: Female, 26 years old. Bilateral axillary lumps PERTINENT HISTORY: Grandmother with breast cancer. TECHNIQUE: Digital examination. Mediolateral oblique (MLO) and craniocaudad (CC) views of both breasts were obtained, along with 3-D tomosynthesis. CAD: CAD was performed on this study. COMPARISON: No comparison mammograms available at this time. If any prior films become available, an addendum to this report can be generated. FINDINGS: Breast Composition: Extremely dense fibroglandular tissue There are no dominant masses or suspicious calcifications. No other significant abnormalities are identified. However, because the patient complains of palpable axillary lumps, further evaluation of both breasts in the upper outer quadrants to include the axilla is recommend BI/DIAG MAMM W/CAD, BILAT IMPRESSION: Further ultrasonographic evaluation recommended, as described above. Recall Side: Both Breasts ASSESSMENT CATEGORY: BIRADS Category 0: Incomplete. Need additional imaging evaluation. A letter regarding these results will be sent to the patient by the facility within 30 days. FOLLOW UP RECOMMENDATION: Ultrasound Recommended. (I) Approximately 10% of breast cancers are not detected by mammography. A normal mammogram should not delay biopsy of a clinically suspicious abnormality. Electronically Signed: Foreign Castillo MD at 15:16 EDT ,
--- NOTE | 2022-09-23 14:37 | US_ITS ---
STUDY: ULTRASOUND BREAST - RIGHT REASON FOR EXAM: Female, 26 years old. Breast lumps TECHNIQUE: Axial and longitudinal images of the RIGHT breast were performed with a high resolution ultrasound transducer. # OF IMAGES: 43 COMPARISON: None. FINDINGS: RIGHT Breast: Focused upper outer quadrant ultrasound of the right breast performed. Dense fibroglandular tissue noted. No suspicious shadowing solid lesion, architectural distortion, or clustered shadowing calcifications. IMPRESSION: No suspicious sonographic findings ASSESSMENT CATEGORY: BIRADS Category 1: Negative. A letter regarding these results will be sent to the patient by the facility within 30 days. Electronically Signed: Foreign Castillo MD at 19:49 EDT , STUDY: ULTRASOUND BREAST - LEFT REASON FOR EXAM: Female, 26 years old. Breast lump, pain TECHNIQUE: Axial and longitudinal images of the LEFT breast were performed with a high resolution ultrasound transducer. # OF IMAGES: 43 COMPARISON: None. FINDINGS: LEFT Breast: Focused ultrasound of the upper outer quadrant of the left breast performed. Dense fibroglandular tissue noted. No suspicious shadowing solid lesion, architectural distortion, or clustered shadowing calcifications. US/Breast Limited Unilateral IMPRESSION: No suspicious sonographic findings ASSESSMENT CATEGORY: BIRADS Category 1: Negative. A letter regarding these results will be sent to the patient by the facility within 30 days. Electronically Signed: Foreign Castillo MD at 19:50 EDT ,
== END | disposition home or self-care (01) ==
PROVIDERS: PCP Internal Medicine; Referring Provider Obstetrics & Gynecology; Visit Provider Obstetrics & Gynecology
DX: N63.0 Unspecified lump in unspecified breast (principal)
CPT/HCPCS: 76642; 77062; 77066; G0279

== ENCOUNTER 2023-02-04 22:41 | Emergency (ER) | payer OTHER, SELFPAY ==
[2023-02-04 22:43] VITALS: BP 125/80; PULSE 94; RESP 14; TEMP 36.8; O2SAT 98; BMI 26.6
--- NOTE | 2023-02-04 23:06 | EX.ED.GENINJ ---
HPI History of Present Illness Chief Complaint: Head Injury Narrative Narrative: 27-year-old female who denies significant past medical history presents with head injury that she sustained at work this evening as she was getting ready to leave. She states she was reaching under the countertop, grabbed something, and when she went to stand up, hit her head against an overhang. She fell to the floor. She is unsure of any loss of consciousness, but states she has a headache. She does not want to file Workmen's Comp. because she states it was not related to her job, she was just at work getting ready to go home. She decided to go home, noticed some swelling of her scalp on the top of her head approximately an hour later, and presents to the emergency department because she wanted to make sure that everything is okay. She denies taking any blood thinners. She might have slight neck pain that is worse with motion, but denies any nausea or vomiting, no lack of concentration, no tinnitus, no numbness or tingling of her arms or legs in relation to her injury. PFSH PFS Medical History Anemia Back pain Bipolar 1 disorder Diarrhea Former smoker Gastric reflux Injury of head and neck Loss of consciousness OCD (obsessive compulsive disorder) PTSD (post-traumatic stress disorder) Schizoaffective disorder, bipolar type Sore throat Thyroid disease Home Medications lamotrigine 150 mg tablet (Lamictal) 200 mg PO QHS 04/29/17 [History Last Taken Unknown] pantoprazole 40 mg tablet,delayed release (Protonix) 40 mg PO BID 05/30/21 [History Last Taken Unknown] fluoxetine 20 mg capsule mg PO 12/05/22 [History Last Taken Unknown] lamotrigine 100 mg tablet (Lamictal) 200 mg PO BID 12/05/22 [History Last Taken Unknown] Allergy/AdvReac Type Severity Reaction Status Date / Time albuterol [From Ventolin HFA] Allergy Unknown Verified 02/04/23 22:43 kiwi Allergy Swelling Verified 02/04/23 22:43 pineapple Allergy Other Verified 02/04/23 22:43 mushroom AdvReac Diarrhea Verified 02/04/23 22:43 Surgical History Hx of colonoscopy Hx of total adrenalectomy Social History Smoking Status: Former smoker ROS ROS ED ROS Narrative Constitutional: No fever, no chills. HEENT: No sore throat. No neck pain. No loss of vision. No rhinorrhea. Cardiovascular: No chest pain. No palpitations. No pedal edema. Respiratory: No cough, no shortness of breath. Abdominal: No abdominal pain. No nausea. No vomiting. Genitourinary: No dysuria. No hematuria. Musculoskeletal: No myalgias. No arthralgias. Neurologic: Positive headaches. No dizziness. No lightheadedness. No paresthesias. Skin: No rash. No change in color. Psychiatric: No depression. No anxiety. EXAM Physical Exam Narrative Exam Narrative: Afebrile. Vital signs noted. HEENT: Normocephalic. Mild tenderness to palpation top of head more towards occiput, no crepitance. PERRL, EOMI. Neck soft and supple. No point tenderness or step off. Cardiovascular: Regular rate and rhythm. No murmurs, rubs, or gallops appreciated. Respiratory: No tachypnea. Lungs clear to auscultation bilaterally. Gastrointestinal: Abdomen soft, nontender, with normoactive bowel sounds. No rebound or guarding. Neurological: Awake. Alert. Oriented x3. Nonfocal, nonlateralizing. Able to raise arms above head without difficulty. Skin: No rash. Normal color. No pallor. Musculoskeletal: No pedal edema. Full range of motion extremities. Const Vital Signs: 02/04/23 22:43 Temperature 98.2 F Temperature Source Temporal Pulse Rate 94 Respiratory Rate 14 Blood Pressure 125/80 H Blood Pressure Mean 95 Pulse Ox 98 Oxygen Delivery Method Room Air MDM MDM MDM Narrative Medical decision making narrative: I had a lengthy discussion with the patient. I discussed the utility of CT imaging with her. I do not feel CT of the brain or C-spine is indicated. She agrees, and through shared decision making, we will forego any imaging. She was reassured. She will take [id number] medications as needed. For scalp reviewed and she was given an ice pack for comfort. I do not feel she requires observation at this time. I have low concern for intracranial hemorrhage. I do feel that she probably has a mild concussion without loss of consciousness. She will follow-up with her primary care provider. Return instructions to the emergency department were reviewed. Disposition is discharged home in stable condition. Discharge Plan Triage Chief Complaint: Head Injury ED Provider: Paul Gil Dx/Rx/DC Orders Clinical Impression: Closed head injury, Contusion of scalp Instructions: ED Scalp Contusion, ED Head Injury (Adult) Prescriptions: No Action fluoxetine 20 mg capsule PO Patient Comments: TAKE 1 CAPSULE BY MOUTH DAILY lamotrigine [Lamictal] 150 MG tablet 200 mg PO QHS lamotrigine [Lamictal] 100 mg tablet 200 mg PO BID pantoprazole [Protonix] 40 mg tablet,delayed release (DR/EC) 40 mg PO BID Rx Instructions: take two times a day for eight week then once a day for eight weeks. Primary Care Provider: Seth Gonzalez Referrals: Seth Gonzalez MD [Primary Care Provider] - 1 Week if not improving Activity Restrictions/Additional Instructions: [id number] medications like Tylenol and ibuprofen for pain. Follow-up with your primary care physician in 7 to 10 days if no improvement. Disposition Disposition: Home, Self Care
[2023-02-04 23:24] VITALS: O2SAT 99
== END 2023-02-04 23:26 | disposition home or self-care (01) ==
LOC: ED 23:11
PROVIDERS: Emergency Provider Emergency Medicine; PCP Internal Medicine; Visit Provider Emergency Medicine
DX: S00.03XA Contusion of scalp, initial encounter (principal); W22.09XA Striking against other stationary object, initial encounter; Z79.899 Other long term (current) drug therapy; Z87.891 Personal history of nicotine dependence
CPT/HCPCS: 99282

== ENCOUNTER 2023-02-06 07:37 | Emergency (ER) | payer OTHER, SELFPAY ==
[2023-02-06 07:38] VITALS: BP 126/87; PULSE 86; RESP 15; TEMP 36.3; O2SAT 99; BMI 27.4
--- NOTE | 2023-02-06 08:01 | CT_ITS ---
STUDY: CT BRAIN WITHOUT CONTRAST REASON FOR EXAM: Female, 27 years old. head injury, nausea RADIATION DOSAGE (If Supplied By Facility): CTDIvol = ( 44.99 ) mGy, DLP = ( 779.24 ) mGycm TECHNIQUE: Transaxial CT imaging of the brain was performed without administration of intravenous contrast material. Individualized dose optimization techniques were used for this CT. COMPARISON: No relevant priors. FINDINGS: Normal soft tissue structures. Normal calvarium. Normal size ventricles and extra-axial spaces for the patient''s age. Normal white matter tracts of the cerebral hemispheres. Normal basal ganglia and thalami. Normal brainstem. Normal cerebellum. There is no intracranial hemorrhage. There are no findings of an acute ischemic infarction. Normal visualized paranasal sinuses. CT/Brain/Head without Contrast IMPRESSION: Normal unenhanced CT scan of the brain. Electronically Signed: Garcia Maguire MD at 9:25 EST ,
--- NOTE | 2023-02-06 08:02 | EDS_ITS ---
HPI History of Present Illness Chief Complaint: Cold Sx Detail of Chief Complaint: Headache and nausea Informant: patient Narrative Narrative: Patient presents to the emergency department complaint of a headache and nausea. Patient gives history of head injury 3 days ago at work where she was bent under a cabinet and she tried to stand up and then remembers waking up on the floor. She is not sure if she lost consciousness. That afternoon she came to the emergency department but did not have any type of imaging. Patient since at times had a headache. About an hour ago she started with severe nausea. Her mom is an EMT and was concerned about a CSF fluid leak because she has had some drainage down the back of her throat. Patient does complain of some photophobia. Headache is a 7 out of 10. She took Tylenol prior to coming in. Patient has history of some chronic diarrhea. Does not think she is as she is currently on her menstrual period and has an IUD. [facility] Medical History Anemia Back pain Bipolar 1 disorder Diarrhea Former smoker Gastric reflux Injury of head and neck Loss of consciousness OCD (obsessive compulsive disorder) PTSD (post-traumatic stress disorder) Schizoaffective disorder, bipolar type Sore throat Thyroid disease Home Medications lamotrigine 150 mg tablet (Lamictal) 200 mg PO QHS 04/29/17 [History Last Taken Unknown] pantoprazole 40 mg tablet,delayed release (Protonix) 40 mg PO BID 05/30/21 [History Last Taken Unknown] fluoxetine 20 mg capsule mg PO 12/05/22 [History Last Taken Unknown] lamotrigine 100 mg tablet (Lamictal) 200 mg PO BID 12/05/22 [History Last Taken Unknown] ondansetron 4 mg disintegrating tablet 4 mg PO Q8H PRN PRN Nausea #10 tabs 02/06/23 [Rx Last Taken Unknown] Allergy/AdvReac Type Severity Reaction Status Date / Time albuterol [From Ventolin HFA] Allergy Unknown Verified 02/06/23 07:41 kiwi Allergy Swelling Verified 02/06/23 07:41 pineapple Allergy Other Verified 02/06/23 07:41 mushroom AdvReac Diarrhea Verified 02/06/23 07:41 Surgical History Hx of colonoscopy Hx of total adrenalectomy Social History Smoking Status: Former smoker ROS ROS ED Review of Systems ROS Unobtainable: other Constitutional Constitutional ED: Reports lethargy; Denies chills, fever(s), sweats or weight loss Eyes Eyes: Denies blurry vision, change in vision or diplopia ENT ENT ED: Reports rhinorrhea; Denies sore throat Cardiovascular Cardiovascular: Reports chest pain and racing heartbeat; Denies orthopnea Respiratory/Chest Respiratory/Chest: Reports cough, dyspnea and dyspnea on exertion; Denies orthopnea or sputum Gastrointestinal Gastrointestinal: Reports diarrhea and nausea; Denies abdominal pain or vomiting Genitourinary Genitourinary ED: Denies dysuria, hematuria or urinary frequency Musculoskeletal Musculoskeletal: Denies arthralgias, back pain, myalgias or neck pain Integumentary Denies abscess, Abrasions or rash Neurologic Neurologic: Reports headache(s); Denies weakness Psychiatric Psychiatric: Denies anxiety, depression or suicidal thoughts Endocrine Endocrinology: Denies polydipsia, polyphagia or polyuria Hematologic/Lymphatic Hematologic/Lymphatic: Denies easy bleeding, easy bruising or lymphadenopathy Allergic/Immunologic Allergic/Immunologic ED: Denies mouth swelling, tongue swelling or urticaria EXAM Physical Exam Const Vital Signs: 02/06/23 07:38 02/06/23 08:21 Temperature 97.4 F L Temperature Source Temporal Pulse Rate 86 Respiratory Rate 15 Respiratory Effort Normal Non-Labored Respiratory Pattern Normal Blood Pressure 126/87 H Blood Pressure Mean 100 Pulse Ox 99 Oxygen Delivery Method Room Air Positive well nourished and well developed General Appearance ED: well developed and NAD HEENT Reports TM's clear and moist mucous membranes normocephalic and atraumatic; Negative for trauma or tenderness Tympanic Membrane ED: Yes TM's clear Eyes PERRL and EOMs intact bilaterally General Eye ED: Negative for pale conjunctiva or scleral icterus Neck no lymphadenopathy, supple and no JVD General: Negative for tenderness Chest Wall inspection of chest normal and palpation of chest normal Chest: Negative for tenderness Resp normal respiratory effort and clear to auscultation bilaterally Effort and Inspection: Negative for respiratory distress or pain with movement Auscultation: Negative for rhonchi, wheezes or diminished lung sounds Cardio regular rate, regular rhythm, S1 normal heart sound, S2 normal heart sound and no murmurs Peripheral Pulses: pulses 2+ throughout GI normal to inspection, nondistended, normoactive bowel sounds, soft to palpation, non-tender, non-distended and no masses Back/Spine no CVA tenderness and no thoracic nor lumbar tenderness Extremity normal to inspection General Extremety ED: Negative for edema General Extremity: Negative for edema Neuro oriented x3, CN's II-XII intact bilaterally, no sensory deficits noted and gait normal Sensorium / Orientation: awake, alert, oriented to person, oriented to place and oriented to time Motor Exam: strength 5/5 throughout and strength abnormal Psych mental status grossly normal Skin no rashes or lesions noted and no wounds MDM MDM MDM Narrative Medical decision making narrative: Patient presents with nausea and headache after sustaining a head injury few days ago. Nausea mostly started an hour ago. In the differential would be concussion versus viral syndrome versus migraine. Patient was medicated with Toradol IM and Zofran IM. She had a CT scan of the brain without contrast that was unremarkable. COVID and flu testing were negative. On repeat evaluation s he is feeling markedly improved. This point she will be discharged to home. In the differential would be concussion versus viral syndrome. Patient will be given a prescription for Zofran. She is advised to push fluids. She is to use ibuprofen or Tylenol for discomfort. Radiography Diagnostic Testing: Clinical Impression(s) from Imaging Studies Brain CT 02/06/23 08:01 IMPRESSION: Normal unenhanced CT scan of the brain. Electronically Signed: Garcia Maguire MD at 9:25 EST , Discharge Plan Triage Chief Complaint: Cold Sx ED Provider: Marianne Ruiz Dx/Rx/DC Orders Clinical Impression: Headache, Nausea, Concussion Instructions: Self-Care for Headaches, Concussion Dc Prescriptions: New ondansetron [ondansetron] 4 mg tablet,disintegrating 4 mg PO Q8H PRN PRN (Reason: Nausea) Qty: 10 0RF No Action fluoxetine 20 mg capsule PO Patient Comments: TAKE 1 CAPSULE BY MOUTH DAILY lamotrigine [Lamictal] 150 MG tablet 200 mg PO QHS lamotrigine [Lamictal] 100 mg tablet 200 mg PO BID pantoprazole [Protonix] 40 mg tablet,delayed release (DR/EC) 40 mg PO BID Rx Instructions: take two times a day for eight week then once a day for eight weeks. Primary Care Provider: Seth Gonzalez Referrals: Seth Gonzalez MD [Primary Care Provider] - 3-5 Days Disposition Disposition: Home, Self Care
[2023-02-06] MEDS: Ondansetron 4 MG/2 ML Vial IM (08:38)
[2023-02-06] MEDS: Ketorolac 60 MG/2 ML Vial IM (08:38)
== END 2023-02-06 09:57 | disposition home or self-care (01) ==
PROVIDERS: Emergency Provider Emergency Medicine; PCP Internal Medicine; Referring Provider Emergency Medicine; Visit Provider Emergency Medicine
DX: S06.0X0A Concussion without loss of consciousness, initial encounter (principal); W22.09XA Striking against other stationary object, initial encounter; Z11.52 Encounter for screening for COVID-19; Z97.5 Presence of (intrauterine) contraceptive device; Z79.899 Other long term (current) drug therapy; Z87.891 Personal history of nicotine dependence
CPT/HCPCS: 70450; 87428; 96372; 99282; J2405

== ENCOUNTER 2024-03-06 04:22 | Emergency (ER) | payer OTHER, SELFPAY ==
[2024-03-06 04:24] VITALS: BP 135/93; PULSE 93; RESP 17; TEMP 36.9; O2SAT 98; BMI 28.0
[2024-03-06 04:26] VITALS: BP 135/93; PULSE 91; RESP 17; TEMP 36.9; O2SAT 99
--- NOTE | 2024-03-06 04:39 | RAD_ITS ---
INDICATION: cough chest tightness EXAMINATION/TECHNIQUE: X-RAY - XR Chest 2 Views COMPARISON: 04/10/2020 chest radiograph. Findings: Frontal and lateral views of the chest. LUNG PARENCHYMA: No acute focal airspace disease or mass lesion. PLEURA: No pleural effusion. No pneumothorax. HEART/GREAT VESSELS: Cardiomediastinal silhouette is unremarkable. BONES: Serpiginous thoracolumbar scoliosis again noted. RAD/Chest PA and Lateral IMPRESSION: Chest with no acute disease. Electronically Signed: Marcial Marvin MD at 6:30 EST ,
--- NOTE | 2024-03-06 04:41 | EX.ED.DYSGE1 ---
HPI History of Present Illness Chief Complaint: General Illness Informant: patient Narrative Narrative: 28-year-old female states she has been ill for 3 or 4 days with low-grade fevers, sore throat and throat swelling/hoarseness, cough, nasal and chest congestion, presenting 430 a.m. now because she had some coughing fits overnight to the point of posttussive emesis, and she feels chest tightness. No history of asthma or lung problems that she knows of. No orthopnea or leg swelling. Some diarrhea. No significant focal abdominal pains. Sick contact with someone who had a cold lately. [facility] Medical History Sore throat Thyroid disease Anemia Back pain Injury of head and neck Loss of consciousness Gastric reflux Former smoker Diarrhea Schizoaffective disorder, bipolar type PTSD (post-traumatic stress disorder) OCD (obsessive compulsive disorder) Bipolar 1 disorder Home Medications ?Medication ?Instructions ?Recorded ?Last Taken ?Type albuterol sulfate 90 mcg/actuation 1 - 2 puff inhalation Q4H PRN PRN 03/06/24 Unknown Rx aerosol inhaler (Ventolin HFA) Wheezing ##1 benzonatate 100 mg capsule 200 mg (2 x 100 mg) PO TID PRN PRN 03/06/24 Unknown Rx Cough #20 CAPSULES vit no.95-ferrous 1 tab PO DAILY 03/06/24 Unknown History fumarate 28 mg-folic acid 800 mcg tablet Allergy/AdvReac Type Severity Reaction Status Date / Time albuterol (From Ventolin HFA) Allergy Unknown Verified 03/06/24 04:23 kiwi Allergy Swelling Verified 03/06/24 04:23 pineapple Allergy Other Verified 03/06/24 04:23 mushroom AdvReac Diarrhea Verified 03/06/24 04:23 Surgical History Hx of colonoscopy Hx of total adrenalectomy Social History Smoking Status: Former smoker ROS ROS ED Constitutional Constitutional ED: Reports fever(s) and subjective; Denies chills ENT ENT ED: Reports nasal congestion, rhinorrhea, sore throat and throat swelling; Denies ear pain Cardiovascular Cardiovascular: Denies palpitations Respiratory/Chest Respiratory/Chest: Reports chest congestion, chest tightness, cough and dyspnea Gastrointestinal Gastrointestinal: Reports diarrhea and vomiting; Denies abdominal pain Genitourinary Genitourinary ED: Denies dysuria or hematuria Musculoskeletal Musculoskeletal: Denies myalgias or neck pain Integumentary Denies abscess or rash Neurologic Neurologic: Denies headache(s), paresthesias or weakness Psychiatric Psychiatric: Denies depression or suicidal thoughts Endocrine Endocrinology: Denies polydipsia or polyuria EXAM Physical Exam Const Vital Signs: 03/06/24 04:24 03/06/24 04:24 03/06/24 04:26 Temperature 98.5 F 98.5 F Temperature Source Oral Oral Pulse Rate 93 91 Respiratory Rate 17 17 Respiratory Effort Short of Breath Respiratory Pattern Normal Blood Pressure 135/93 H 135/93 H Blood Pressure Mean 107 107 Pulse Ox 98 99 Oxygen Delivery Method Room Air Room Air 03/06/24 04:56 Temperature Temperature Source Pulse Rate 99 Respiratory Rate 14 Respiratory Effort Respiratory Pattern Normal Blood Pressure Blood Pressure Mean Pulse Ox Oxygen Delivery Method Positive well nourished and well developed General Appearance ED: well developed and NAD HEENT Reports moist mucous membranes HEENT Narrative: No trismus. Hoarse but no stridor. normocephalic and atraumatic Throat: posterior oropharynx abnormal Positive for erythema; Negative for edema or exudates Eyes PERRL and EOMs intact bilaterally Neck no lymphadenopathy, supple and no meningeal signs Neck Narrative: Submandibular tenderness but no palpable swelling or adenopathy. Resp normal respiratory effort and clear to auscultation bilaterally Cardio no murmurs Rate: regular rate; Negative for tachycardic Rhythm: regular rhythm GI normal to inspection, nondistended, normoactive bowel sounds and non-tender Extremity normal to inspection General Extremety ED: Negative for edema General Extremity: Negative for edema Neuro oriented x3, CN's II-XII intact bilaterally and no sensory deficits noted Sensorium / Orientation: alert Motor Exam: strength 5/5 throughout Psych Mood & Affect: anxious Skin Lesions: no lesions Rashes: no rashes MDM MDM MDM Narrative Medical decision making narrative: Many of patient's symptoms are consistent with a viral syndrome. Differential includes mycoplasma pneumonia given the GI symptoms, multiple viral etiologies including COVID and influenza, as well as wheezy bronchitis that could cause chest tightness and congestion sensation. Ordered a COVID/influenza/RSV swab which was negative and a two-view chest x-ray which on my interpretation shows no acute pneumonia. She is feeling a little better after the breathing treatment. I do not suspect strep throat here. I think this is all viral. I am giving her a dose of Decadron which I think will help her throat pain and swelling, prescription for an albuterol inhaler as well as benzonatate Perles. Supportive care advised. Discharge Plan Triage Chief Complaint: General Illness ED Provider: Marshall Sánchez Dx/Rx/DC Orders Clinical Impression: Acute wheezy bronchitis Instructions: ED Bronchitis with Wheezing (Adult) Prescriptions: New benzonatate 100 mg capsule 200 mg PO TID PRN PRN (Reason: Cough) Qty: 20 0RF albuterol sulfate [Ventolin HFA] 90 mcg/actuation HFA aerosol inhaler 1 - 2 puff inhalation Q4H PRN PRN (Reason: Wheezing) Qty: 1 0RF No Action PNV cmb#95-ferrous fumarate-FA 28 mg iron- 800 mcg tablet 1 tab PO DAILY Primary Care Provider: Rhonda Vitale Referrals: Rhonda Vitale, DO [Primary Care Provider] - 1 Week if not improving Print Language: Malian Disposition Disposition: Home, Self Care
[2024-03-06 04:56] VITALS: PULSE 99; RESP 14
[2024-03-06] MEDS: Ipratropium/Albuterol Sulfate 3 ML AMPUL.NEB INHALATION (04:56)
[2024-03-06] MEDS: dexAMETHasone 4 MG Tablet 8 MG PO (05:53)
[2024-03-06 05:56] VITALS: BP 128/76; PULSE 89; RESP 16; TEMP 36.1; O2SAT 99
== END 2024-03-06 05:56 | disposition home or self-care (01) ==
PROVIDERS: Emergency Provider Emergency Medicine; PCP Family Medicine; Visit Provider Emergency Medicine
DX: J20.9 Acute bronchitis, unspecified (principal); Z11.52 Encounter for screening for COVID-19; R11.10 Vomiting, unspecified; R19.7 Diarrhea, unspecified; K21.9 Gastro-esophageal reflux disease without esophagitis; Z79.899 Other long term (current) drug therapy; Z87.891 Personal history of nicotine dependence
CPT/HCPCS: 71046; 87631; 94640; 99283

== ENCOUNTER → 2024-05-15 | Outpatient (CLI) | payer OTHER, SELFPAY ==
[2024-05-15 12:52] LABS: Erythrocyte Sedimentation Rate 21 mm/hr (0-30)
[2024-05-15 12:59] LABS: Absolute Lymphocyte Count 2.93 X10^3/uL (0.83-4.51); Absolute Neutrophil Count 3.6 X10^3/uL (2.0-7.7); Basophil# 0.09 X10^3/uL; Basophil% 1.2 % (0-1); Eosinophils% 2.7 % (0-5); Hematocrit 42.2 % (37-47); Hemoglobin 14.2 g/dL (12.0-15.0); Lymphocyte # 2.93 X10^3/ul (0.83-4.51); Lymphocyte % 39.9 % (19-41); Mean Corp Hgb Conc 33.6 g/dL (32-36); Mean Corpuscular Hgb 29.2 pg (27.0-32.0); Mean Corpuscular Volume 86.8 fL (81-99); Mean Platelet Vol. 9.8 fl (6.2-12.0); Monocyte% 6.8 % (0-10); NRBC Flagged by Analyzer 0 % (0-5); Neutrophil # 3.61 X10^3/uL (2.7-7.7); Neutrophil % 49.1 % (47-70); Platelet Count 333 K/mm3 (150-450); RBC Distribution Width CV 11.9 % (11.6-14.6); RBC Distribution Width SD 38.4 fl (35.1-43.9); Red Blood Count 4.86 M/mm3 (4.2-5.4); White Blood Count 7.4 K/mm3 (4.4-11.0)
[2024-05-15 13:20] LABS: Hemoglobin A1c 5.1 % (<=5.6)
[2024-05-15 13:23] LABS: ALB/GLOB Ratio 1.3 RATIO (0.9-2.4); AST(SGOT) 18 U/L (<=31); Alanine Aminotransfer ALT/SGPT 5 U/L (<=34); Albumin, Serum 4.4 g/dL (3.5-5.0); Alkaline Phosphatase 50 U/L (35-104); Anion Gap 15 (5-15); BUN 9 mg/dL (4-19); BUN/Creat Ratio 9.7 RATIO (10-20); Calcium,Total 9.5 mg/dL (7.6-11.0); Carbon Dioxide 20.8 mmol/L (21.0-32.0); Chloride 103 mmol/L (98-108); Creatinine, Serum 0.96 mg/dL (0.70-1.20); EST Glomerular Filtration Rate 82 (>60); Globulin 3.5 g/dL (2.2-4.2); Glucose 99 mg/dL (70-99); Potassium 3.5 mmol/L (3.3-5.1); Sodium Level 138 mmol/L (133-145); Total Bilirubin 0.34 mg/dL (0.00-1.30)
[2024-05-15 14:19] LABS: CRP < 3.00 mg/L (0.0-3.0); Ferritin 45 ng/mL (22-378); Magnesium 2.1 mg/dL (1.5-2.2); Vitamin B12 431 pg/mL (180-914); Vitamin D,25 Hydroxy 49.2 ng/mL (30-100)
[2024-05-16 14:08] LABS: Anti-Centromere B Ab <0.2 AI (0.0-0.9); Anti-Chromatin 0.6 AI (0.0-0.9); Anti-Jo <0.2 AI (0.0-0.9); Anti-Scleroderma-70 AB <0.2 AI (0.0-0.9); Anti-dsDNA Ab <1 IU/mL (0-9); RNP Ab <0.2 AI (0.0-0.9); SJOGREN'S Anti-SS-A test < 0.2 AI (0.0-0.9); SJOGREN'S Anti-SS-B test < 0.2 AI (0.0-0.9); Smith Ab <0.2 AI (0.0-0.9)
[2024-05-16 16:09] LABS: Lyme Scn Total Ab w/Rflx Negative (Negative)
== END | disposition home or self-care (01) ==
LOC: VSLAB 11:59
PROVIDERS: PCP Family Medicine; Visit Provider Family Medicine
DX: R53.83 Other fatigue (principal)
CPT/HCPCS: 36415; 80053; 82306; 82533; 82607; 82728; 83036; 83735; 84443; 85025; 85652; 86140; 86225; 86235; 86618

== ENCOUNTER → 2024-07-24 | Outpatient (CLI) | payer OTHER, SELFPAY | END | disposition home or self-care (01) | LOC: LABSPEC 15:10 | PROVIDERS: PCP Family Medicine; Referring Provider Otolaryngology Otolaryngology/Facial Plastic Surgery; Visit Provider Otolaryngology Otolaryngology/Facial Plastic Surgery | DX: J02.9 Acute pharyngitis, unspecified (principal) | CPT/HCPCS: 87070; 87077 ==